=== PATIENT | female | born 1945 | race Caucasian/White ===

== ENCOUNTER → 2017-06-17 | Outpatient (CLI) | payer MEDICARE, OTHER ==
[~2017-06-17] MED LIST: ASPI-808 PO; BIOT10005 PO; CHOL10003 PO; CHOL10007 PO; CHRO1000 PO; CURCUMIN PO; CYAN1TAB26 PO; CYAN50003 PO; DOCU-143 PO; ESTR0.5T PO; FOLI0.8C PO; GING550C4 PO; GRAP50CA5 PO; GRAPE SEED COMPLEX PO; HYDR-3812 PO; KRIL500C PO; LACT1CAP74 PO; LEVO100T7 PO; LITH150C PO; LITH300T PO; LORA10TA76 PO; MILK175T PO; MUPI22OI2 NS; MV-M1TAB20 PO; NABU750T PO; OXYC-197 PO; PHEN15CA PO; PHEN37.53 PO; POLY119P5 PO; POTA99TA21 PO; RESV100C PO; SODI30SP2 NS; TEMA30CA PO; THYROID CARE PO; TRIA10.8; TURM500C7 PO; UBID1CAP58 PO; UBID200C16 PO; VITA150T PO; ZINC50TA4 PO; [UNRECOGNIZED DRUG - CODE] PO; [UNRECOGNIZED DRUG - OTHER] PO; [UNRECOGNIZED DRUG - OTHER] PO; milk thistle PO; vinpocetine PO
== END ==
LOC: CARD 10:14
PROVIDERS: ATTEND Internal Medicine Cardiovascular Disease
DX: I10 Essential (primary) hypertension (principal); E03.9 Hypothyroidism, unspecified; M54.5 Low back pain
CPT/HCPCS: 93306

== ENCOUNTER → 2017-07-01 | Outpatient (CLI) | payer MEDICARE, OTHER ==
[~2017-07-01] VITALS: Ht 154.9 cm; Wt 103.4 kg
[~2017-07-01] MED LIST changes: +CATHETER FLUSH 10 ML SYR IV PRN
[2017-07-01 09:31] VITALS: BP 164/87
[2017-07-01 09:47] VITALS: BP 177/62
== END ==
LOC: CARD 07:46
PROVIDERS: ATTEND Internal Medicine Cardiovascular Disease
DX: I10 Essential (primary) hypertension (principal); E03.9 Hypothyroidism, unspecified; M54.5 Low back pain
CPT/HCPCS: 78452; 93017

== ENCOUNTER → 2019-06-20 | Outpatient (CLI) | payer MEDICARE, OTHER ==
[~2019-06-20] MED LIST changes: +ACHD5005 PO; -CATHETER FLUSH 10 ML SYR IV PRN; -HYDR-3812 PO; -OXYC-197 PO; +OXYC1TAB87 PO
== END ==
LOC: CARD 08:57
PROVIDERS: ATTEND Internal Medicine Cardiovascular Disease
DX: I10 Essential (primary) hypertension (principal); M51.16 Intervertebral disc disorders with radiculopathy, lumbar region; G47.33 Obstructive sleep apnea (adult) (pediatric); E66.01 Morbid (severe) obesity due to excess calories
CPT/HCPCS: 93306

== ENCOUNTER 2021-12-23 16:31 | Inpatient (IN) | payer MEDICARE, OTHER ==
[~2021-12-23] VITALS: Ht 157 cm; Wt 107.9 kg
[~2021-12-23 16:31] MED LIST changes: -CATHETER FLUSH 10 ML SYR IV PRN; -IOHEXOL 350 MG/ML 100 ML (OMNIPAQUE 350) VIAL IV ONE; -NS 100 ML (IVPB) BAG IV ONE
[2021-12-23] MEDS ORDERED: NS IV 1000 ML 3,000 ML IV ONE (16:45)
[2021-12-23] MEDS ORDERED: PIPERACILLIN SODIUM/TAZOBACTAM 4.5 GM in NS (IVPB) 100 ML IV NR (17:15)
[2021-12-23 17:16] VITALS: BP 138/75
--- NOTE | 2021-12-23 17:40 | History & Physical ---
History of Present Illness History of Present Illness Reason for visit/HPI PT IS A 76 Y/O FEMALE WHO WAS ADMITTED TO THE HOSPITAL A DIRECT ADMISSION AFTER HAVING SEVERE ABDOMINAL PAIN WITH ASSOCIATED BROWN DISCHARGE AND BLEEDING FROM VAGINA AND BLADDER (PER PT REPORT). SHE HAD A CT SCAN AND LABS WHICH SHOWED SIGMOID DIVERTICULITIS WITH SUSPECTED FISTULA TO VAGINAL CUFF AND BLADDER AND A WBC COUNT OF 29. SHE ADMITS TO HAVING ABDOMINAL PAIN FOR THE PAST FEW WEEKS, WAS SEEN IN THE OFFICE ON THURSDAY OF LAST WEEK, THE CT SCAN WAS ORDERED AN OUTPATIENT, BUT THE PT HAD ESCALATION OF PAIN OVER THE WEEKEND AND STARTED TO HAVE THE BLEEDING AND DISCHARGE THIS WEEKEND WELL. Date of Admission Dec 23, 2021 at 16:58 Date Seen by a Provider: Dec 23, 2021 Time Seen by a Provider: 17:30 I consulted on this patient on 12/23/21 17:34 Attending Physician Bert Padilla MD Admitting Physician Admitting Physician: Bert Padilla MD Attending Physician: Bert Padilla MD Consult [facility] Allergies and Home Medications Allergies Coded Allergies: codeine (Verified Allergy, Unknown, FLU LIKE SYMPTOMS, 02/04/16) rosuvastatin (Verified Adverse Reaction, Mild, 12/23/21) myalgias Uncoded Allergies: depromedrol (Allergy, Severe, 12/23/21) collins syndrome, headache Patient Home Medication List Home Medication List Reviewed: Yes Aspirin (Aspirin) 325 Mg Tablet, 325 MG PO HS, (Reported) Entered as Reported by: PINA COVARRUBIAS on 02/04/16 1327 Last Action: Held Biotin (Biotin) 10,000 Mcg Capsule, 10,000 MCG PO DAILY, (Reported) Entered as Reported by: PINA COVARRUBIAS on 02/04/16 1430 Last Action: Held Cholecalciferol (Vitamin D3) (Vitamin D3) 1,000 Unit Tablet, 1,000 UNIT PO HS, (Reported) Entered as Reported by: PINA COVARRUBIAS on 02/04/16 1430 Last Action: Held Cholecalciferol (Vitamin D3) (Vitamin D3) 1,000 Unit Capsule, 1,000 UNIT PO DAILY, (Reported) Entered as Reported by: TAYLOR SHAH on 02/08/16 1008 Last Action: Held Chromium Picolinate (Chromium Picolinate) 1,000 Mcg Tablet, 1,000 MCG PO DAILY, (Reported) Entered as Reported by: PINA COVARRUBIAS on 02/04/16 143 Last Action: Held Cyanocobalamin (Vitamin B-12) (Vitamin B-12) 5,000 Mcg Tab.rapdis, 5,000 MCG PO DAILY, (Reported) Entered as Reported by: TAYLOR SHAH on 02/08/16 100 Last Action: Held Docusate Sodium (Colace) 100 Mg Capsule, 100 MG PO HS, (Reported) Entered as Reported by: PINA COVARRUBIAS on 02/04/161429 Last Action: Held Estradiol (Estradiol Tablet) 0.5 Mg Tablet, 0.5 MG PO HS, (Reported) Entered as Reported by: PINA COVARRUBIAS on 02/04/161326 Last Action: Held Folic Acid (Folic Acid) 0.8 Mg Capsule, 0.8 MG PO DAILY, (Reported) Entered as Reported by: PINA COVARRUBIAS on 02/04/161429 Last Action: Held Chetna Root (Chetna Root) 550 Mg Capsule, 550 MG PO DAILY, (Reported) Entered as Reported by: PINA COVARRUBIAS on 02/04/161429 Last Action: Held Grape Seed Extract (Grape Seed Extract) 50 Mg Capsule, 100 MG PO DAILY, (Reported) Entered as Reported by: TAYLOR SHAH on 02/08/16 100 Last Action: Held Krill Oil (Krill Oil) 500 Mg Capsule, 500 MG PO HS, (Reported) Entered as Reported by: PINA COVARRUBIAS on 02/04/161429 Last Action: Held Lactobacillus Combination No.4 (Probiotic) 1 Each Capsule, 1 CAP PO HS, (Reported) Entered as Reported by: PINA COVARRUBIAS on 02/04/161429 Last Action: Held Levothyroxine Sodium (Levothyroxine Sodium) 100 Mcg Tablet, 100 MCG PO DAILY Prescribed by: HAYES ROWE on 02/08/16 1458 Last Action: Held [place] Carbonate ([place] Carbonate ER) 300 Mg Tablet.er, 300 MG PO DAILY, (Reported) Entered as Reported by: PINA COVARRUBIAS on 02/04/16 1327 Last Action: Held [place] Carbonate ([place] Carbonate) 150 Mg Capsule, 150 MG PO HS PRN for AGITATION, (Reported) Entered as Reported by: PINA COVARRUBIAS on 02/04/16 1327 Last Action: Held Loratadine (Claritin) 10 Mg Tablet, 10 MG PO DAILY, (Reported) Entered as Reported by: PINA COVARRUBIAS on 02/04/16 121 Last Action: Held Milk Thistle (Milk Thistle) 175 Mg Tablet, 250 MG PO DAILY, (Reported) Entered as Reported by: TAYLOR SHAH on 02/08/16 100 Last Action: Held Multivit W-Mn/FA/Lycop/Lut/Ala (Multi-Betic Tablet) 1 Each Tablet, 1 TAB PO BID, (Reported) Entered as Reported by: PINA COVARRUBIAS on 02/04/16 143 Last Action: Held Nabumetone (Nabumetone) 750 Mg Tablet, 750 MG PO BID, (Reported) Entered as Reported by: PINA COVARRUBIAS on 02/04/16 121 Last Action: Held Oxycodone HCl/Acetaminophen (Percocet 5-325 mg Tablet) 1 Each Tablet, 1 EACH PO Q4H PRN for PAIN Prescribed by: HAYES ROWE on 02/08/16 1455 Last Action: Held Phentermine HCl (Phentermine HCl) 37.5 Mg Tablet, 18.75 MG PO Q48H, (Reported) Entered as Reported by: TAYLOR SHAH on 02/08/16 100 Last Action: Held Polyethylene Glycol 3350 (Miralax) 119 Gm Powder, 17 GM PO DAILY, (Reported) Entered as Reported by: PINA COVARRUBIAS on 02/04/16 143 Last Action: Held Potassium Gluconate (Potassium) 99 Mg Tablet, 99 MG PO HS, (Reported) Entered as Reported by: PINA COVARRUBIAS on 02/04/16 143 Last Action: Held Resveratrol (Resveratrol) 100 Mg Capsule, 100 MG PO HS, (Reported) Entered as Reported by: PINA COVARRUBIAS on 02/04/16 143 Last Action: Held Sodium Chloride (Saline Nasal Soldier) 30 Ml Soldier, 1 SPRAY NS HS, (Reported) Entered as Reported by: TAYLOR SHAH on 02/08/16 1008 Last Action: Held Temazepam (Temazepam) 30 Mg Capsule, 30 MG PO HS, (Reported) Entered as Reported by: PINA COVARRUBIAS on 02/04/16 1327 Last Action: Held Triamcinolone Acetonide (Nasacort) 10.8 Ml Soldier, 1 SPRAY NA HS, (Reported) Entered as Reported by: PINA COVARRUBIAS on 02/04/16 1212 Last Action: Held Turmeric Root Extract (Turmeric) 500 Mg Capsule, 500 MG PO DAILY, (Reported) Entered as Reported by: PINA COVARRUBIAS on 02/04/16 143 Last Action: Held Ubidecarenone (Co Q-10) 200 Mg Capsule, 200 MG PO HS, (Reported) Entered as Reported by: TAYLOR SHAH on 02/08/16 100 Last Action: Held Vitamin B Complex & Vit C No.4 (Super B Complex) 150 Mg Tablet, 150 MG PO DAILY, (Reported) Entered as Reported by: PINA COVARRUBIAS on 02/04/161429 Last Action: Held Zinc Gluconate (Zinc) 50 Mg Tablet, 50 MG PO HS, (Reported) Entered as Reported by: PINA COVARRUBIAS on 02/04/161429 Last Action: Held [Curcumin] , 1 CAP PO DAILY, (Reported) Entered as Reported by: TAYLOR SHAH on 02/08/16 100 Last Action: Held [natural eggshell ] , 500 MG PO DAILY, (Reported) Entered as Reported by: PINA COVARRUBIAS on 02/04/161429 Last Action: Held [rejuvicare hair] , 1 TAB PO DAILY, (Reported) Entered as Reported by: PINA COVARRUBIAS on 02/04/161429 Last Action: Held [vinpocetine] , 10 MG PO DAILY, (Reported) Entered as Reported by: PINA COVARRUBIAS on 02/04/161429 Last Action: Held Past Wrjxomp-Lqffga-Jjikte Hx Patient Social History Marrital Status: Number of Children: 1 Number of living children: 1 Living Status: lives in home with spouse 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[employer]) Tobacco Use?: No Smoking Status: Never a Smoker Smokeless Tobacco Frequency: Never a User Use of E-Cig and/or Vaping dev: No Use of E-Cig and/or Vaping Marshal: Never a User Substance use?: No Alcohol Use?: No Pt feels they are or have been: No Immunizations Up To Date Date of Influenza Vaccine: Apr 18, 2021 Tetanus Booster (TDap): Unknown Hepatitis A: No Hepatitis B: No PED Vaccines UTD: No Date of Pneumonia Vaccine: May 12, 2016 Seasonal Allergies Seasonal Allergies: Yes Current Status status: No status: No Advance Directives: No Communicates: Verbally Primary Language: Polish Preferred Spoken Language: Polish Is interpretation needed?: No Sensory deficits: Vision impairment Implanted or Applied Medical D: None Past Medical History Surgeries: Section, Hysterectomy (1989), Thyroidectomy (2015) Pneumonia Currently Using CPAP: Yes Currently Using BIPAP: No High Cholesterol, Hypertension, Palpitations 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: Hysterectomy Sexually Transmitted Disease: No HIV/AIDS: No Kidney Infection, UTI-Chronic Chronic Constipation Degenerate Disk Disease, Arthritis, Scoliosis, Chronic Back Pain Hypothyroidsim (post surgical hypothyroidism), Diabetes, Non-Insulin dep Cataract Loss of Vision: Denies Hearing Impairment: Hard of Hearing Bipolar Adverse Reaction/Blood Tranf: No Family Medical History Reviewed and Corrections made Alcoholism 19 FATHER Alzheimer's disease 19 MOTHER Arthritis 19 FATHER 19 MOTHER G8 BROTHER Cardiovascular disease 19 MOTHER Completed stroke 19 MOTHER FHx: bipolar disorder 19 FATHER G8 BROTHER Hypertension 19 FATHER Myocardial infarction 19 FATHER Psychosocial problem 19 FATHER 19 MOTHER G8 BROTHER Thyroid disease 19 MOTHER Heart Disease, Hypertension, Stroke, Other Conditions/Hx (father had a bleeding disorder, mother osteoporosis, depression, arthritis) Review of Systems Constitutional: No chills, No diaphoresis, No fever; malaise, weakness, other (DECREASED APPETITE) EENTM: No hoarseness, No throat pain Respiratory: No cough, No dyspnea on exertion, No short of breath Cardiovascular: No chest pain, No edema, No palpitations Gastrointestinal: abdominal pain (LLQ); No constipation, No diarrhea; loss of appetite; No nausea, No vomiting Genitourinary: other (BLOOD AND BROWN DISCHARGE FROM VAGINAL REGION AND BLADDER) Musculoskeletal: back pain (CHRONIC); No muscle stiffness, No muscle weakness Skin: no symptoms reported Psychiatric/Neurological: Anxiety, Depressed; Denies Weakness All Other Systems Reviewed Negative Unless Noted: Yes Physical Exam Vital Signs Vital Signs - First Documented 12/23/21 12/23/21 12/23/21 17:16 17:29 21:55 Temp 36.2 Pulse 78 Resp 20 B/P (MAP) 138/75 (96) Pulse Ox 92 O2 Delivery Room Air O2 Flow Rate 2.00 Capillary Refill : Less Than 3 Seconds Height, Weight, BMI Height: 5'1.00" Weight: 228lbs. 0.0oz. [id number]; 40.56 BMI Method: General Appearance: No Apparent Distress, WD/WN HEENT: PERRL/EOMI, Pharynx Normal Neck: Full Range of Motion, Normal Inspection, Non Tender, Supple Respiratory: Chest Non Tender, Lungs Clear, Normal Breath Sounds, No Accessory Muscle Use, No Respiratory Distress Cardiovascular: Regular Rate, Rhythm, No Edema, Normal Peripheral Pulses Gastrointestinal: Other (DECREASED BOWEL SOUNDS, TTP LLQ, SUPRAPUBIC REGION) Genital/Rectal: Other (BROWNISH DISCHARGE FROM VAGINAL REGION WITH BLOOD ON GLOVE, NO OPEN WOUND ABLE TO BE APPRECIATED ON LIMITED EXAM) Extremity: Normal Capillary Refill, Normal Range of Motion, Non Tender, No Calf Tenderness Neurologic/Psychiatric: Alert, Oriented x3, No Motor/Sensory Deficits, Normal Mood/Affect Skin: Normal Color, Warm/Dry Lymphatic: No Adenopathy Assessment/Plan Assessment and Plan Sepsis Leukocytosis Sigmoid diverticulitis 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 - started on Sepsis replacement protocol for fluids - IV zosyn initiated as well - Blood cultures obtained. - Consult to Dr. Rai has been called and he will see patient today. Cholelethiasis - not current issue - will address at a later time or when/if symptoms arise. Hypertension - holding home meds for now, will treat with IV meds if needed. Diabetes Mellitus - holding home meds for now, will treat with insulin if needed. - ICU protocol for diabetes/fsbs checks/insulin Bipolar Mood Disorder - - holding home meds for now Post-Procedural Hypothyroidism - - holding home meds for now, will treat with IV meds if needed. 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
--- NOTE | 2021-12-23 17:54 | Diagnostic Imaging Report ---
INDICATION: Sepsis. EXAMINATION: Chest from 12/23/2021. FINDINGS: The cardiomediastinal silhouette is unremarkable. The pulmonary vasculature is within normal limits. The lungs and pleural spaces are clear. IMPRESSION: No evidence of an acute cardiopulmonary process. Not mentioned in the body of the report, linear densities in the neck are nonspecific, perhaps postsurgical, correlate clinically. Dictated by: Dictated on workstation # [id number]
[2021-12-23] MEDS ORDERED: CATHETER FLUSH 10 ML SYR IVP PRN (18:00)
[2021-12-23] MEDS ORDERED: PANTOPRAZOLE 40 MG (PROTONIX) VIAL IV NR (18:00)
--- NOTE | 2021-12-23 18:30 | Tele-ICU Consult ---
History of Present Illness History of Present Illness Date Seen by Provider: Dec 23, 2021 Time Seen by Provider: 18:30 Date of Admission Tele-ICU Physician , consultation) Available chart/ vitals / labs / Images reviewed no H&P yet Patient's information available about PMH, Shx, Fhx allergy reviewed in EMR. ROS as per chart and RN report Now in ICU, hemodynamically stable Video assessment done using teleICU camera, rest of exam as per RN Discussed with RN. Consultants: Hospital course: 12/23 76 yr female DX: Sepsis, Fistula Sent from MD office A/P - CT 12/23 - Sigmoid diverticulitis with a suspicion for fistulization to the vaginal cuff as well as urinary bladder. - ABX started as per PCP Lines : (Central Line Necessity Reviewed) Mejia: OG: Nutrition: Analgesia: Anxiety/ delirium VTE Prophylaxis: Stress Ulcer Prophylaxis: Glycemic Control: Plans in collaboration with bedside consultants and IM MDs. Discussed with RN to reach out if any questions or concerns A total of 20 minutes of critical care time was devoted to this patient today, required to treat and/or prevent further deterioration of critical care condition ( as above ) . Allergies and Home Medications Allergies Coded Allergies: codeine (Verified Allergy, Unknown, FLU LIKE SYMPTOMS, 02/04/16) rosuvastatin (Verified Adverse Reaction, Mild, 12/23/21) myalgias Uncoded Allergies: depromedrol (Allergy, Severe, 12/23/21) collins syndrome, headache Home Medications Aspirin 325 Mg Tablet, 325 MG PO HS, (Reported) Biotin 10,000 Mcg Capsule, 10,000 MCG PO DAILY, (Reported) Cholecalciferol (Vitamin D3) 1,000 Unit Tablet, 1,000 UNIT PO HS, (Reported) Cholecalciferol (Vitamin D3) 1,000 Unit Capsule, 1,000 UNIT PO DAILY, (Reported) Chromium Picolinate 1,000 Mcg Tablet, 1,000 MCG PO DAILY, (Reported) Cyanocobalamin (Vitamin B-12) 5,000 Mcg Tab.rapdis, 5,000 MCG PO DAILY, (Reported) Docusate Sodium 100 Mg Capsule, 100 MG PO HS, (Reported) Estradiol 0.5 Mg Tablet, 0.5 MG PO HS, (Reported) Folic Acid 0.8 Mg Capsule, 0.8 MG PO DAILY, (Reported) Chetna Root 550 Mg Capsule, 550 MG PO DAILY, (Reported) Grape Seed Extract 50 Mg Capsule, 100 MG PO DAILY, (Reported) Krill Oil 500 Mg Capsule, 500 MG PO HS, (Reported) Lactobacillus Combination No.4 1 Each Capsule, 1 CAP PO HS, (Reported) Levothyroxine Sodium 100 Mcg Tablet, 100 MCG PO DAILY Prescribed by: HAYES ROWE on 02/08/16 1458 Axis Carbonate 300 Mg Tablet.er, 300 MG PO DAILY, (Reported) Axis Carbonate 150 Mg Capsule, 150 MG PO HS PRN for AGITATION, (Reported) Loratadine 10 Mg Tablet, 10 MG PO DAILY, (Reported) Milk Thistle 175 Mg Tablet, 250 MG PO DAILY, (Reported) Multivit W-Mn/FA/Lycop/Lut/Ala 1 Each Tablet, 1 TAB PO BID, (Reported) Nabumetone 750 Mg Tablet, 750 MG PO BID, (Reported) Oxycodone HCl/Acetaminophen 1 Each Tablet, 1 EACH PO Q4H PRN for PAIN Prescribed by: HAYES ROWE on 02/08/16 1455 Phentermine HCl 37.5 Mg Tablet, 18.75 MG PO Q48H, (Reported) TAKES 1/2 (37.5MG) TABLET Polyethylene Glycol 3350 119 Gm Powder, 17 GM PO DAILY, (Reported) Potassium Gluconate 99 Mg Tablet, 99 MG PO HS, (Reported) Resveratrol 100 Mg Capsule, 100 MG PO HS, (Reported) Sodium Chloride 30 Ml Williams, 1 SPRAY NS HS, (Reported) Temazepam 30 Mg Capsule, 30 MG PO HS, (Reported) Triamcinolone Acetonide 10.8 Ml Williams, 1 SPRAY NA HS, (Reported) Turmeric Root Extract 500 Mg Capsule, 500 MG PO DAILY, (Reported) Ubidecarenone 200 Mg Capsule, 200 MG PO HS, (Reported) Vitamin B Complex & Vit C No.4 150 Mg Tablet, 150 MG PO DAILY, (Reported) Zinc Gluconate 50 Mg Tablet, 50 MG PO HS, (Reported) [Curcumin] , 1 CAP PO DAILY, (Reported) [natural eggshell ] , 500 MG PO DAILY, (Reported) [rejuvicare hair] , 1 TAB PO DAILY, (Reported) [vinpocetine] , 10 MG PO DAILY, (Reported) Past Medical/Social/Family Hx Patient Social History Marrital Status: Number of Children: 1 Number of living children: 1 Living Status: lives in home with spouse 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[employer]) Tobacco Use?: No Smoking Status: Never a Smoker Smokeless Tobacco Frequency: Never a User Use of E-Cig and/or Vaping dev: No E-Cig and/or Vaping Freq: Never a User Substance use?: No Alcohol Use?: No Pt stated abuse/neglect: No Immunizations Up To Date Influenza Vaccine Up-to-Date: Yes; Up-to-Date Tetanus Booster (TDap): Unknown Hepatitis A: No Hepatitis B: No TB Skin Test: None Date of Pneumonia Vaccine: May 12, 2016 Current Status status: No status: No Advance Directives: No Communicates: Verbally Primary Language: Stateless Preferred Spoken Language: Stateless Is interpretation needed?: No Sensory deficits: Vision impairment Implanted or Applied Medical D: None Review of Systems Constitutional: see HPI Focused Exam Height, Weight, BMI Height: 5'1.00" Weight: 228lbs. 0.0oz. 103.979759jq; 40.56 BMI Method: Exam Exam Patient acknowledged, consented, and participated in this virtual visit which was conducted using real time audio/video Vital Signs Date Time Temp Pulse Resp B/P (MAP) Pulse Ox O2 Delivery O2 Flow Rate FiO2 12/23/21 17:29 36.2 78 20 138/75 92 Room Air 12/23/21 17:17 78 12/23/21 17:16 36.2 78 20 138/75 (96) Room Air Height & Weight Height: 5'1.00" Weight: 228lbs. 0.0oz. 103.933428hw; 40.56 BMI Method: General Appearance: No Apparent Distress Capillary Refill: Less Than 3 Seconds Assessment/Plan Assessment/Plan ` HAILEE CARBAJAL MD Dec 23, 2021 18:30
[2021-12-23 19:02] LABS: BASOPHILS # (AUTO) 0.1 10^3/uL (0.0-0.1); BASOPHILS % (AUTO) 0 % (0-10); EOSINOPHILS # (AUTO) 0.4 10^3/uL (0.0-0.3); EOSINOPHILS % (AUTO) 1 % (0-10); HEMATOCRIT 32 % (35-52); HEMOGLOBIN 10.5 g/dL (11.5-16.0); LYMPHOCYTES % (AUTO) 7 % (12-44); MEAN CORPUSCULAR HEMOGLOBIN 32 pg (25-34); MEAN CORPUSCULAR HGB CONC 33 g/dL (32-36); MEAN CORPUSCULAR VOLUME 98 fL (80-99); MONOCYTES % (AUTO) 7 % (0-12); NEUTROPHILS # (AUTO) 22.9 10^3/uL (1.8-7.8); NEUTROPHILS % (AUTO) 83 % (42-75); PLATELET COUNT 221 10^3/uL (130-400); WHITE BLOOD COUNT 27.8 10^3/uL (4.3-11.0)
[2021-12-23 19:09] LABS: ALBUMIN 3.3 GM/DL (3.2-4.5); POTASSIUM 3.8 MMOL/L (3.6-5.0)
[2021-12-23 19:10] LABS: CALCIUM 9.1 MG/DL (8.5-10.1)
[2021-12-23 19:11] LABS: TOTAL PROTEIN 6.4 GM/DL (6.4-8.2)
[2021-12-23 19:13] LABS: BILIRUBIN,TOTAL 0.4 MG/DL (0.1-1.0)
[2021-12-23 19:15] LABS: BAND NEUTROPHILS 4 %; CREATININE SERUM 0.8 MG/DL (0.60-1.30); LYMPHOCYTES % (MANUAL) 5 %; NEUTROPHILS % (MANUAL) 86 %
[2021-12-23 19:16] LABS: ANISOCYTOSIS SLIGHT; BASOPHILS % (MANUAL) 0 %; EOSINOPHILS % (MANUAL) 1 %; METAMYELOCYTES % 1 %; MONOCYTES % (MANUAL) 3 %
[2021-12-23] MEDS: fentaNYL INJ 100 MCG/2 ML AMP IVP PRN ×3 (19:41→23:20)
[2021-12-23] MEDS: NS IV 1000 ML 1,000 ML IV SCH ×2 (20:00→23:21)
--- NOTE | 2021-12-23 20:15 | Consultation - Surgery ---
History of Present Illness History of Present Illness Patient Consulted On(lucila/time) 12/23/21 20:10 Date Seen by Provider: Dec 23, 2021 Time Seen by Provider: 19:35 History of Present Illness Consult requested by Dr. PADILLA for sigmoid diverticulitis with possible fistulization to the bladder and vagina. Patient is a 76-year-old female who states she began having problems on with lower abdominal pain. She started have problems with urination as well. She went to her doctor office on Thursday which she states she started some antibiotics. She is try to get a CT scan that day but was unable to get it. She has lower 10 out of 10 pain in the abdomen which she states is more in the vagina and bladder area. She states that she has been leaking large amounts of blood clots and fluid. She feels they are from the vagina she states that she has no control over that as well. She states that she is not having any problems with her bowel movements. She had a CT scan that I reviewed demonstrating sigmoid diverticulitis with what appears to be possible fistula to the vaginal cuff/bladder. Patient with elevated white blood cell count. She states that she has had some sweats. She thinks she had a fever but did not check. Not having any nausea vomiting shortness of breath or chest pain at this time. She states that her last colonoscopy was likely greater than 10 years ago. Allergies and Home Medications Allergies Coded Allergies: codeine (Verified Allergy, Unknown, FLU LIKE SYMPTOMS, 02/04/16) rosuvastatin (Verified Adverse Reaction, Mild, 12/23/21) myalgias Uncoded Allergies: depromedrol (Allergy, Severe, 12/23/21) collins syndrome, headache Patient Home Medication List Home Medication List Reviewed: Yes Aspirin (Aspirin) 325 Mg Tablet, 325 MG PO HS, (Reported) Entered as Reported by: PINA COVARRUBIAS on 02/04/16 1327 Last Action: Held Biotin (Biotin) 10,000 Mcg Capsule, 10,000 MCG PO DAILY, (Reported) Entered as Reported by: PINA COVARRUBIAS on 02/04/16 1430 Last Action: Held Cholecalciferol (Vitamin D3) (Vitamin D3) 1,000 Unit Tablet, 1,000 UNIT PO HS, (Reported) Entered as Reported by: PINA COVARRUBIAS on 7/18/16 1430 Last Action: Held Cholecalciferol (Vitamin D3) (Vitamin D3) 1,000 Unit Capsule, 1,000 UNIT PO DAILY, (Reported) Entered as Reported by: TAYLOR SHAH on 02/08/161007 Last Action: Held Chromium Picolinate (Chromium Picolinate) 1,000 Mcg Tablet, 1,000 MCG PO DAILY, (Reported) Entered as Reported by: PINA COVARRUBIAS on 02/04/161429 Last Action: Held Cyanocobalamin (Vitamin B-12) (Vitamin B-12) 5,000 Mcg Tab.rapdis, 5,000 MCG PO DAILY, (Reported) Entered as Reported by: TAYLOR SHAH on 02/08/161007 Last Action: Held Docusate Sodium (Colace) 100 Mg Capsule, 100 MG PO HS, (Reported) Entered as Reported by: PINA COVARRUBIAS on 02/04/161429 Last Action: Held Estradiol (Estradiol Tablet) 0.5 Mg Tablet, 0.5 MG PO HS, (Reported) Entered as Reported by: PINA COVARRUBIAS on 02/04/16 1327 Last Action: Held Folic Acid (Folic Acid) 0.8 Mg Capsule, 0.8 MG PO DAILY, (Reported) Entered as Reported by: PINA COVARRUBIAS on 02/04/161429 Last Action: Held Chetna Root (Chetna Root) 550 Mg Capsule, 550 MG PO DAILY, (Reported) Entered as Reported by: PINA COVARRUBIAS on 02/04/161429 Last Action: Held Grape Seed Extract (Grape Seed Extract) 50 Mg Capsule, 100 MG PO DAILY, (Reported) Entered as Reported by: TAYLOR SHAH on 02/08/161007 Last Action: Held Krill Oil (Krill Oil) 500 Mg Capsule, 500 MG PO HS, (Reported) Entered as Reported by: PINA COVARRUBIAS on 02/04/161429 Last Action: Held Lactobacillus Combination No.4 (Probiotic) 1 Each Capsule, 1 CAP PO HS, (Reported) Entered as Reported by: PINA COVARRUBIAS on 02/04/161429 Last Action: Held Levothyroxine Sodium (Levothyroxine Sodium) 100 Mcg Tablet, 100 MCG PO DAILY Prescribed by: HAYES ROWE on 02/08/16 1458 Last Action: Held [place] Carbonate ([place] Carbonate ER) 300 Mg Tablet.er, 300 MG PO DAILY, (Reported) Entered as Reported by: PINA COVARRUBIAS on 02/04/16 132 Last Action: Held [place] Carbonate ([place] Carbonate) 150 Mg Capsule, 150 MG PO HS PRN for AGITATION, (Reported) Entered as Reported by: PINA COVARRUBIAS on 02/04/16 132 Last Action: Held Loratadine (Claritin) 10 Mg Tablet, 10 MG PO DAILY, (Reported) Entered as Reported by: PINA COVARRUBIAS on 02/04/16 121 Last Action: Held Milk Thistle (Milk Thistle) 175 Mg Tablet, 250 MG PO DAILY, (Reported) Entered as Reported by: TAYLOR SHAH on 02/08/16 100 Last Action: Held Multivit W-Mn/FA/Lycop/Lut/Ala (Multi-Betic Tablet) 1 Each Tablet, 1 TAB PO BID, (Reported) Entered as Reported by: PINA COVARRUBIAS on 02/04/16 143 Last Action: Held Nabumetone (Nabumetone) 750 Mg Tablet, 750 MG PO BID, (Reported) Entered as Reported by: PINA COVARRUBIAS on 02/04/16 121 Last Action: Held Oxycodone HCl/Acetaminophen (Percocet 5-325 mg Tablet) 1 Each Tablet, 1 EACH PO Q4H PRN for PAIN Prescribed by: HAYES ROWE on 02/08/16 1455 Last Action: Held Phentermine HCl (Phentermine HCl) 37.5 Mg Tablet, 18.75 MG PO Q48H, (Reported) Entered as Reported by: TAYLOR SHAH on 02/08/16 100 Last Action: Held Polyethylene Glycol 3350 (Miralax) 119 Gm Powder, 17 GM PO DAILY, (Reported) Entered as Reported by: PINA COVARRUBIAS on 02/04/16 143 Last Action: Held Potassium Gluconate (Potassium) 99 Mg Tablet, 99 MG PO HS, (Reported) Entered as Reported by: PINA COVARRUBIAS on 02/04/16 143 Last Action: Held Resveratrol (Resveratrol) 100 Mg Capsule, 100 MG PO HS, (Reported) Entered as Reported by: PINA COVARRUBIAS on 02/04/161429 Last Action: Held Sodium Chloride (Saline Nasal [place]) 30 Ml [place], 1 SPRAY NS HS, (Reported) Entered as Reported by: TAYLOR SHAH on 02/08/16 100 Last Action: Held Temazepam (Temazepam) 30 Mg Capsule, 30 MG PO HS, (Reported) Entered as Reported by: PINA COVARRUBIAS on 02/04/16 1327 Last Action: Held Triamcinolone Acetonide (Nasacort) 10.8 Ml [place], 1 SPRAY NA HS, (Reported) Entered as Reported by: PINA COVARRUBIAS on 02/04/16 1212 Last Action: Held Turmeric Root Extract (Turmeric) 500 Mg Capsule, 500 MG PO DAILY, (Reported) Entered as Reported by: PINA COVARRUBIAS on 02/04/161429 Last Action: Held Ubidecarenone (Co Q-10) 200 Mg Capsule, 200 MG PO HS, (Reported) Entered as Reported by: TAYLOR SHAH on 02/08/16 100 Last Action: Held Vitamin B Complex & Vit C No.4 (Super B Complex) 150 Mg Tablet, 150 MG PO DAILY, (Reported) Entered as Reported by: PINA COVARRUBIAS on 02/04/161429 Last Action: Held Zinc Gluconate (Zinc) 50 Mg Tablet, 50 MG PO HS, (Reported) Entered as Reported by: PINA COVARRUBIAS on 02/04/161429 Last Action: Held [Curcumin] , 1 CAP PO DAILY, (Reported) Entered as Reported by: TAYLOR SHAH on 02/08/16 100 Last Action: Held [natural eggshell ] , 500 MG PO DAILY, (Reported) Entered as Reported by: PINA COVARRUBIAS on 02/04/161429 Last Action: Held [rejuvicare hair] , 1 TAB PO DAILY, (Reported) Entered as Reported by: PINA COVARRUBIAS on 02/04/161429 Last Action: Held [vinpocetine] , 10 MG PO DAILY, (Reported) Entered as Reported by: PINA COVARRUBIAS on 02/04/161429 Last Action: Held Past Pipieaf-Owxtjr-Xybofm Hx Patient Social History Smoking Status: Never a Smoker Recent Hopitalizations: No Alcohol Use?: No Immunizations Up To Date Tetanus Booster (TDap): Unknown PED Vaccines UTD: No Date of Pneumonia Vaccine: May 12, 2016 Date of Influenza Vaccine: Apr 18, 2021 Seasonal Allergies Seasonal Allergies: Yes Surgeries History of Surgeries: Yes Surgeries: Section, Hysterectomy (1989), Thyroidectomy (2015) Respiratory Respiratory Disorders: Pneumonia Cardiovascular Cardiac Disorders: High Cholesterol, Hypertension, Palpitations Reproductive System Hx Reproductive Disorders: Yes (FIBROID TUMORS) Sexually Transmitted Disease: No HIV/AIDS: No Female Reproductive Disorders: Endometriosis 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 Genitourinary Genitourinary Disorders: Kidney Infection, UTI-Chronic Gastrointestinal Gastrointestinal Disorders: Chronic Constipation Musculoskeletal Musculoskeletal Disorders: Degenerate Disk Disease, Arthritis, Scoliosis, Chronic Back Pain Endocrine Endocrine Disorders: Hypothyroidsim (post surgical hypothyroidism), Diabetes, Non-Insulin dep HEENT HEENT Disorders: Cataract Loss of Vision: Denies Hearing Impairment: Hard of Hearing Psychosocial Behavioral Health Disorders: Bipolar Blood Transfusions Adverse Reaction to a Blood Tr: No Reviewed Nursing Assessment Reviewed/Agree w Nursing PMH: Yes Family Medical History Significant Family History: Heart Disease, Hypertension, Stroke, Other Conditions/Hx (father had a bleeding disorder, mother osteoporosis, depression, arthritis) Family Medial History: Alcoholism 19 FATHER Alzheimer's disease 19 MOTHER Arthritis 19 FATHER 19 MOTHER G8 BROTHER Cardiovascular disease 19 MOTHER Completed stroke 19 MOTHER FHx: bipolar disorder 19 FATHER G8 BROTHER Hypertension 19 FATHER Myocardial infarction 19 FATHER Psychosocial problem 19 FATHER 19 MOTHER G8 BROTHER Thyroid disease 19 MOTHER Review of Systems-General Constitutional: diaphoresis, fever EENTM: No blurred vision, No double vision Respiratory: No cough, No dyspnea on exertion Cardiovascular: No chest pain, No palpitations Gastrointestinal: abdominal pain (Lower); No nausea, No vomiting Genitourinary: No decreased output; discharge Musculoskeletal: No gout, No joint pain Skin: No change in color, No change in hair/nails Psychiatric/Neurological: Denies Anxiety, Denies Depressed, Denies Emotional Problems All Other Systems Reviewed Negative Unless Noted: Yes (Negative excepted noted.) Physical Exam-General Problems Physical Exam Vital Signs Vital Signs - First Documented 12/23/21 12/23/21 17:16 17:29 Temp 36.2 Pulse 78 Resp 20 B/P (MAP) 138/75 (96) Pulse Ox 92 O2 Delivery Room Air Capillary Refill : Less Than 3 Seconds General Appearance: no apparent distress, obese HEENT: PERRL/EOMI, normal ENT inspection Neck: non-tender, supple Respiratory: chest non-tender, no respiratory distress, no accessory muscle use Cardiovascular: regular rate, rhythm, no JVD Gastrointestinal: soft, other (Tenderness lower abdomen more midline) Genital/Rectal: other (Female nurse at bedside no appearance of any drainage from the vagina on exam. Mejia was placed a small blood clot came from the catheterization however no other blood clots removed.) Back: normal inspection, no CVA tenderness Extremities: non-tender, normal inspection Neurologic/Psychiatric: alert, normal mood/affect, oriented x 3 Skin: normal color, warm/dry Lymphatic: no adenopathy Data Review Labs Laboratory Tests 12/23/21 18:40: White Blood Count 27.8H, Red Blood Count 3.28L, Hemoglobin 10.5#L, Hematocrit 32L, Mean Corpuscular Volume 98, Mean Corpuscular Hemoglobin 32, Mean Corpuscular Hemoglobin Concent 33, Red Cell Distribution Width 16.5H, Platelet Count 221, Mean Platelet Volume 11.0, Immature Granulocyte % (Auto) 1, Neutrophils (%) (Auto) 83H, Lymphocytes (%) (Auto) 7L, Monocytes (%) (Auto) 7, Eosinophils (%) (Auto) 1, Basophils (%) (Auto) 0, Neutrophils # (Auto) 22.9H, Lymphocytes # (Auto) 2.0, Monocytes # (Auto) 2.0H, Eosinophils # (Auto) 0.4H, Basophils # (Auto) 0.1, Immature Granulocyte # (Auto) 0.3H, Neutrophils % (Manual) 86, Lymphocytes % (Manual) 5, Monocytes % (Manual) 3, Eosinophils % (Manual) 1, Basophils % (Manual) 0, Metamyelocytes % 1, Band Neutrophils 4, Anisocytosis SLIGHT, Sodium Level 136, Potassium Level 3.8, Chloride Level 104, Carbon Dioxide Level 20L, Anion Gap 12, Blood Urea Nitrogen 24H, Creatinine 0.80, Estimat Glomerular Filtration Rate 77, BUN/Creatinine Ratio 30, Glucose Level 127H, Lactic Acid Level 1.10, Calcium Level 9.1, Corrected Calcium 9.7, Total Bilirubin 0.4, Aspartate Amino Transf (AST/SGOT) 16, Alanine Aminotransferase (ALT/SGPT) 16, Alkaline Phosphatase 76, Total Protein 6.4, Albumin 3.3 Assessment/Plan Assessment/Plan Assessment/Plan Lower abdominal pain Sigmoid diverticulitis with possible fistulization to the bladder cuff/bladder Leukocytosis Sepsis secondary to above Cholelithiasis by CT scan not acute issue Possible hematuria or vaginal bleeding Patient is 76-year-old female. We we will give her IV fluids, IV antibiotics. We will keep n.p.o. Mejia placed for accurate I's and O's and also to monitor to check for drainage. If not able to resolve conservatively would need to divert the colon so it does not continue to have things passed through this area of the fistula. Patient understands plan. Clinical Quality Measures DVT/VTE Risk/Contraindication: Contraindications-Pharm: Other *list below* Other: PT HAVING VAGINAL AND BLADDER BLEEDING FROM FISTULA ASHLEY RAMSEY DO Dec 23, 2021 20:15
[2021-12-23] MEDS: PIPERACILLIN SODIUM/TAZOBACTAM 4.5 GM in NS (IVPB) 100 ML IV SCH (23:21)
[2021-12-23] MEDS: inSUlin ASPART (NovoLOG) 1 UNIT/0.01 ML (CHARGE PER UNIT) SQ SCH (23:42)
[2021-12-24] VITALS (7 sets, daily range): BP systolic 140–173; BP diastolic 56–75
[2021-12-24] MEDS: fentaNYL INJ 100 MCG/2 ML AMP IVP PRN ×13 (01:00→22:45)
[2021-12-24] MEDS: NS IV 1000 ML 1,000 ML IV SCH ×6 (02:54→21:36)
[2021-12-24 04:31] LABS: BASOPHILS # (AUTO) 0.1 10^3/uL (0.0-0.1); BASOPHILS % (AUTO) 0 % (0-10); EOSINOPHILS # (AUTO) 0.3 10^3/uL (0.0-0.3); EOSINOPHILS % (AUTO) 2 % (0-10); HEMATOCRIT 36 % (35-52); HEMOGLOBIN 11.8 g/dL (11.5-16.0); LYMPHOCYTES # (AUTO) 1.4 10^3/uL (1.0-4.0); LYMPHOCYTES % (AUTO) 7 % (12-44); MEAN CORPUSCULAR HEMOGLOBIN 32 pg (25-34); MEAN CORPUSCULAR HGB CONC 33 g/dL (32-36); MEAN CORPUSCULAR VOLUME 97 fL (80-99); MONOCYTES # (AUTO) 1.3 10^3/uL (0.0-1.0); MONOCYTES % (AUTO) 6 % (0-12); NEUTROPHILS # (AUTO) 17.2 10^3/uL (1.8-7.8); NEUTROPHILS % (AUTO) 84 % (42-75); PLATELET COUNT 183 10^3/uL (130-400); WHITE BLOOD COUNT 20.5 10^3/uL (4.3-11.0)
[2021-12-24 04:42] LABS: POTASSIUM 4.1 MMOL/L (3.6-5.0)
[2021-12-24 04:43] LABS: CALCIUM 8.2 MG/DL (8.5-10.1)
[2021-12-24 04:44] LABS: TOTAL PROTEIN 5.8 GM/DL (6.4-8.2)
[2021-12-24 04:46] LABS: BILIRUBIN,TOTAL 0.6 MG/DL (0.1-1.0)
[2021-12-24] MEDS: inSUlin ASPART (NovoLOG) 1 UNIT/0.01 ML (CHARGE PER UNIT) SQ SCH ×3 (04:46→18:00)
[2021-12-24 04:47] LABS: PHOSPHORUS 2.7 MG/DL (2.3-4.7)
[2021-12-24 04:48] LABS: CREATININE SERUM 0.69 MG/DL (0.60-1.30)
[2021-12-24 04:51] LABS: MAGNESIUM 1.8 MG/DL (1.6-2.4)
[2021-12-24] MEDS: KCL 20 MEQ TAB (K-DUR) PO SCH (04:51)
[2021-12-24] MEDS: POTASSIUM CL 10MEQ/50ML IVPB 50 ML IV SCH (04:51)
[2021-12-24] MEDS: MAGNESIUM 1 GM/100 ML IVPB 100 ML IV SCH (06:13)
[2021-12-24] MEDS: PIPERACILLIN SODIUM/TAZOBACTAM 4.5 GM in NS (IVPB) 100 ML IV SCH ×3 (08:00→22:46)
[2021-12-24] MEDS: PANTOPRAZOLE 40 MG (PROTONIX) VIAL IV SCH (08:00)
--- NOTE | 2021-12-24 08:08 | Progress Note ---
Subjective Subjective Date Seen by Provider: Dec 24, 2021 Time Seen by Provider: 08:00 Pt reports that she is feeling worse today - she has abdominal pain, but denies nausea. She reports that she is having feces from her vagina and her raymundo was full of brown urine Review of Systems General: No Chills; Fatigue, Malaise HEENT: No Dysphasia, No Sore Throat Pulmonary: No Dyspnea, No Cough Cardiovascular: No: Chest Pain, Palpitations Gastrointestinal: Abdominal Pain; No: Nausea, Vomiting Genitourinary: Other (feces in raymundo) Neurological: No: Weakness, Confusion All Other Systems Reviewed All Other Systems Reviewed: Yes Objective Exam Vital Signs Vital Signs Date Time Temp Pulse Resp B/P (MAP) Pulse Ox O2 Delivery O2 Flow Rate FiO2 12/24/21 07:00 72 16 129/62 98 Nasal Cannula 2.00 12/24/21 07:00 69 12/24/21 06:00 74 13 136/58 97 Nasal Cannula 2.00 12/24/21 05:00 70 15 131/70 96 Nasal Cannula 2.00 12/24/21 04:00 62 9 147/69 98 Nasal Cannula 2.00 12/24/21 03:51 36.0 12/24/21 03:19 96 Nasal Cannula 2.00 12/24/21 03:00 69 15 138/63 96 Nasal Cannula 2.00 12/24/21 02:00 72 16 157/72 97 Nasal Cannula 2.00 12/24/21 01:00 74 12/24/21 01:00 74 11 138/58 97 Nasal Cannula 2.00 12/24/21 00:00 75 11 141/61 95 Nasal Cannula 2.00 12/23/21 23:40 36.4 12/23/21 23:37 96 Nasal Cannula 2.00 12/23/21 23:00 77 16 132/62 91 Nasal Cannula 2.00 12/23/21 22:00 75 17 119/98 95 Nasal Cannula 2.00 12/23/21 21:55 78 22 92 Nasal Cannula 2.00 12/23/21 21:00 76 12 159/62 95 Room Air 12/23/21 20:03 75 149/67 94 Room Air 12/23/21 20:00 96 Room Air 12/23/21 19:34 36.4 12/23/21 19:22 96 Room Air 12/23/21 19:00 80 14 156/67 97 Room Air 12/23/21 19:00 80 12/23/21 18:00 71 22 140/65 96 Room Air 12/23/21 17:29 36.2 78 20 138/75 92 Room Air 12/23/21 17:17 78 12/23/21 17:16 36.2 78 20 138/75 (96) Room Air I & O 12/24/21 07:00 Intake Total 5200 ml Output Total 1645 ml Balance 3555 ml General Appearance: No Apparent Distress, WD/WN HEENT: PERRL/EOMI, Pharynx Normal Neck: Full Range of Motion, Normal Inspection, Non Tender, Supple Respiratory: Chest Non Tender, Lungs Clear, Normal Breath Sounds, No Accessory Muscle Use, No Respiratory Distress Cardiovascular: Regular Rate, Rhythm, No Edema, Normal Peripheral Pulses Gastrointestinal: Other (DECREASED BOWEL SOUNDS, TTP LLQ, SUPRAPUBIC REGION) Genital/Rectal: Other (BROWNISH DISCHARGE FROM VAGINAL REGION WITH BLOOD ON GLOVE, NO OPEN WOUND ABLE TO BE APPRECIATED ON LIMITED EXAM) Extremity: Normal Capillary Refill, Normal Range of Motion, Non Tender, No Calf Tenderness Neurologic/Psychiatric: Alert, Oriented x3, No Motor/Sensory Deficits, Normal Mood/Affect Skin: Normal Color, Warm/Dry Lymphatic: No Adenopathy Results Lab Laboratory Tests 12/23/21 18:40: White Blood Count 27.8H, Red Blood Count 3.28L, Hemoglobin 10.5#L, Hematocrit 32L, Mean Corpuscular Volume 98, Mean Corpuscular Hemoglobin 32, Mean Corpuscular Hemoglobin Concent 33, Red Cell Distribution Width 16.5H, Platelet Count 221, Mean Platelet Volume 11.0, Immature Granulocyte % (Auto) 1, Neutrophils (%) (Auto) 83H, Lymphocytes (%) (Auto) 7L, Monocytes (%) (Auto) 7, E osinophils (%) (Auto) 1, Basophils (%) (Auto) 0, Neutrophils # (Auto) 22.9H, Lymphocytes # (Auto) 2.0, Monocytes # (Auto) 2.0H, Eosinophils # (Auto) 0.4H, Basophils # (Auto) 0.1, Immature Granulocyte # (Auto) 0.3H, Neutrophils % (Manual) 86, Lymphocytes % (Manual) 5, Monocytes % (Manual) 3, Eosinophils % (Manual) 1, Basophils % (Manual) 0, Metamyelocytes % 1, Band Neutrophils 4, Anisocytosis SLIGHT, Sodium Level 136, Potassium Level 3.8, Chloride Level 104, Carbon Dioxide Level 20L, Anion Gap 12, Blood Urea Nitrogen 24H, Creatinine 0.80, Estimat Glomerular Filtration Rate 77, BUN/Creatinine Ratio 30, Glucose Level 127H, Lactic Acid Level 1.10, Calcium Level 9.1, Corrected Calcium 9.7, Total Bilirubin 0.4, Aspartate Amino Transf (AST/SGOT) 16, Alanine Aminotransferase (ALT/SGPT) 16, Alkaline Phosphatase 76, Total Protein 6.4, Albumin 3.3 12/23/21 23:31: Glucometer 119H 12/24/21 04:20: White Blood Count 20.5H, Red Blood Count 3.72L, Hemoglobin 11.8, Hematocrit 36, Mean Corpuscular Volume 97, Mean Corpuscular Hemoglobin 32, Mean Corpuscular Hemoglobin Concent 33, Red Cell Distribution Width 16.7H, Platelet Count 183, Mean Platelet Volume 11.0, Immature Granulocyte % (Auto) 1, Neutrophils (%) (Auto) 84H, Lymphocytes (%) (Auto) 7L, Monocytes (%) (Auto) 6, Eosinophils (%) (Auto) 2, Basophils (%) (Auto) 0, Neutrophils # (Auto) 17.2H, Lymphocytes # (Auto) 1.4, Monocytes # (Auto) 1.3H, Eosinophils # (Auto) 0.3, Basophils # (Auto) 0.1, Immature Granulocyte # (Auto) 0.2H, Sodium Level 139, Potassium Level 4.1, Chloride Level 111H, Carbon Dioxide Level 17L, Anion Gap 11, Blood Urea Nitrogen 21H, Creatinine 0.69, Estimat Glomerular Filtration Rate 90, BUN/Creatinine Ratio 30, Glucose Level 112H, Calcium Level 8.2L, Corrected Calcium 9.0, Total Bilirubin 0.6, Aspartate Amino Transf (AST/SGOT) 18, Alanine Aminotransferase (ALT/SGPT) 13, Alkaline Phosphatase 65, Total Protein 5.8L, Albumin 3.0L, Phosphorus Level 2.7, Magnesium Level 1.8 Assessment/Plan Assessment/Plan Admission Dx Sepsis Leukocytosis Sigmoid diverticulitis 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 - started on Sepsis replacement protocol for fluids - IV zosyn initiated as well - Blood cultures obtained. - Consult to Dr. Rai has been called and surgical intervention planned for today Cholelethiasis - not current issue - will address at a later time or when/if symptoms arise. Hypertension - holding home meds for now, will treat with IV meds if needed. Diabetes Mellitus - holding home meds for now, will treat with insulin if needed. - ICU protocol for diabetes/fsbs checks/insulin Bipolar Mood Disorder - - holding home meds for now Post-Procedural Hypothyroidism - - holding home meds for now, will treat with IV meds if needed. 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
--- NOTE | 2021-12-24 11:14 | Tele-ICU Progress Note ---
Subjective Date Seen by a Provider: Dec 24, 2021 Time Seen by a Provider: 11:14 Subjective/Events-last exam (Tele-ICU Physician , Progress Note ) Available chart/ vitals / labs / Images reviewed Video assessment done using teleICU camera, rest of exam as per RN Discussed with RN , EXAM PER RN Events overnight : Afebrile FiO2 - 3l I/O =+ Drips: Pressors: , hemodynamically stable Consultants: Hospital course: 12/23 76 yr female DX: Sepsis, Fistula Sent from MD office A/P Sigmoid diverticulitis with a suspicion for fistulization to the vaginal cuff as well as urinary bladder. ( CT 12/23 - - ABX started - S xconsulted DM - ISS Lines : (Central Line Necessity Reviewed) Mejia: 12/23 OG: Nutrition: npo Analgesia: Anxiety/ delirium VTE Prophylaxis: SCD , lovenox if ok with SX - RN to adress Stress Ulcer Prophylaxis: start PPI if kept NPO > 24 h Plans in collaboration with bedside consultants and IM MDs. Discussed with RN to reach out if any questions or concerns A total of 20 minutes of critical care time was devoted to this patient today, required to treat and/or prevent further deterioration of critical care condition ( as above ) . Sepsis Event Evaluation Height, Weight, BMI Height: 5'1.00" Weight: 228lbs. 0.0oz. [id number]; 42.76 BMI Method: Focused Exam Lactate Level 12/23/21 18:40: Lactic Acid Level 1.10 Exam Exam Patient acknowledged, consented, and participated in this virtual visit which was conducted using real time audio/video Vital Signs Date Time Temp Pulse Resp B/P (MAP) Pulse Ox O2 Delivery O2 Flow Rate FiO2 12/24/21 11:00 58 26 149/57 98 Nasal Cannula 2.00 12/24/21 10:00 68 15 98 Nasal Cannula 2.00 12/24/21 09:55 Nasal Cannula 2.00 12/24/21 09:00 72 8 132/66 98 Nasal Cannula 2.00 12/24/21 08:00 75 18 118/63 99 Nasal Cannula 2.00 12/24/21 08:00 36.2 12/24/21 07:00 72 16 129/62 98 Nasal Cannula 2.00 12/24/21 07:00 69 12/24/21 06:00 74 13 136/58 97 Nasal Cannula 2.00 12/24/21 05:00 70 15 131/70 96 Nasal Cannula 2.00 12/24/21 04:00 62 9 147/69 98 Nasal Cannula 2.00 12/24/21 03:51 36.0 12/24/21 03:19 96 Nasal Cannula 2.00 12/24/21 03:00 69 15 138/63 96 Nasal Cannula 2.00 12/24/21 02:00 72 16 157/72 97 Nasal Cannula 2.00 12/24/21 01:00 74 12/24/21 01:00 74 11 138/58 97 Nasal Cannula 2.00 12/24/21 00:00 75 11 141/61 95 Nasal Cannula 2.00 12/23/21 23:40 36.4 12/23/21 23:37 96 Nasal Cannula 2.00 12/23/21 23:00 77 16 132/62 91 Nasal Cannula 2.00 12/23/21 22:00 75 17 119/98 95 Nasal Cannula 2.00 12/23/21 21:55 78 22 92 Nasal Cannula 2.00 12/23/21 21:00 76 12 159/62 95 Room Air 12/23/21 20:03 75 149/67 94 Room Air 12/23/21 20:00 96 Room Air 12/23/21 19:34 36.4 12/23/21 19:22 96 Room Air 12/23/21 19:00 80 14 156/67 97 Room Air 12/23/21 19:00 80 12/23/21 18:00 71 22 140/65 96 Room Air 12/23/21 17:29 36.2 78 20 138/75 92 Room Air 12/23/21 17:17 78 12/23/21 17:16 36.2 78 20 138/75 (96) Room Air I & O 12/24/21 07:00 Intake Total 5200 ml Output Total 1645 ml Balance 3555 ml Height & Weight Height: 5'1.00" Weight: 228lbs. 0.0oz. [id number]; 42.76 BMI Method: General Appearance: No Apparent Distress, WD/WN HEENT: PERRL/EOMI, Pharynx Normal Neck: Full Range of Motion, Normal Inspection, Non Tender, Supple Respiratory: Chest Non Tender, Lungs Clear, Normal Breath Sounds, No Accessory Muscle Use, No Respiratory Distress Cardiovascular: Regular Rate, Rhythm, No Edema, Normal Peripheral Pulses Capillary Refill: Less Than 3 Seconds Gastrointestinal: soft, other (Tenderness lower abdomen more midline) Extremity: Normal Capillary Refill, Normal Range of Motion, Non Tender, No Calf Tenderness Neurologic/Psychiatric: Alert, Oriented x3, No Motor/Sensory Deficits, Normal Mood/Affect Skin: Normal Color, Warm/Dry Lymphatic: No Adenopathy Results Lab Laboratory Tests 12/23/21 18:40 12/24/21 04:20 Assessment/Plan Assessment/Plan ` HAILEE CARBAJAL MD Dec 24, 2021 11:14
--- NOTE | 2021-12-24 14:06 | Progress Note - Surgery ---
Subjective Date Seen by a Provider: Dec 24, 2021 Time Seen by a Provider: 13:57 Subjective/Events-last exam Still with lower abdominal pain. She is having a lot of stool out vagina and through raymundo now. Feels uncomfortable. WBC slightly down now 20.5. Patient denies n/v fever sweats chills shortness of breath or chest pain. Focused Exam Lactate Level 12/23/21 18:40: Lactic Acid Level 1.10 Objective Exam Vital Signs Date Time Temp Pulse Resp B/P (MAP) Pulse Ox O2 Delivery O2 Flow Rate FiO2 12/24/21 12:49 70 12/24/21 12:00 72 14 138/67 96 Nasal Cannula 2.00 12/24/21 11:00 58 26 149/57 98 Nasal Cannula 2.00 12/24/21 10:00 68 15 98 Nasal Cannula 2.00 12/24/21 09:55 Nasal Cannula 2.00 12/24/21 09:00 72 8 132/66 98 Nasal Cannula 2.00 12/24/21 08:00 75 18 118/63 99 Nasal Cannula 2.00 12/24/21 08:00 36.2 12/24/21 07:00 72 16 129/62 98 Nasal Cannula 2.00 12/24/21 07:00 69 12/24/21 06:00 74 13 136/58 97 Nasal Cannula 2.00 12/24/21 05:00 70 15 131/70 96 Nasal Cannula 2.00 12/24/21 04:00 62 9 147/69 98 Nasal Cannula 2.00 12/24/21 03:51 36.0 12/24/21 03:19 96 Nasal Cannula 2.00 12/24/21 03:00 69 15 138/63 96 Nasal Cannula 2.00 12/24/21 02:00 72 16 157/72 97 Nasal Cannula 2.00 12/24/21 01:00 74 12/24/21 01:00 74 11 138/58 97 Nasal Cannula 2.00 12/24/21 00:00 75 11 141/61 95 Nasal Cannula 2.00 12/23/21 23:40 36.4 12/23/21 23:37 96 Nasal Cannula 2.00 12/23/21 23:00 77 16 132/62 91 Nasal Cannula 2.00 12/23/21 22:00 75 17 119/98 95 Nasal Cannula 2.00 12/23/21 21:55 78 22 92 Nasal Cannula 2.00 12/23/21 21:00 76 12 159/62 95 Room Air 12/23/21 20:03 75 149/67 94 Room Air 12/23/21 20:00 96 Room Air 12/23/21 19:34 36.4 12/23/21 19:22 96 Room Air 12/23/21 19:00 80 14 156/67 97 Room Air 12/23/21 19:00 80 12/23/21 18:00 71 22 140/65 96 Room Air 12/23/21 17:29 36.2 78 20 138/75 92 Room Air 12/23/21 17:17 78 12/23/21 17:16 36.2 78 20 138/75 (96) Room Air I & O 12/24/21 07:00 Intake Total 5200 ml Output Total 1645 ml Balance 3555 ml Capillary Refill : Less Than 3 Seconds General Appearance: No Apparent Distress, WD/WN, Obese HEENT: PERRL/EOMI, Pharynx Normal Neck: Full Range of Motion, Normal Inspection, Non Tender, Supple Respiratory: Chest Non Tender, No Accessory Muscle Use, No Respiratory Distress Cardiovascular: Regular Rate, Rhythm, No Edema, No JVD, Normal Peripheral Pulses Gastrointestinal: soft, other (Tenderness lower abdomen more midline) Extremity: Normal Capillary Refill, Normal Range of Motion, Non Tender, No Calf Tenderness Neurologic/Psychiatric: Alert, Oriented x3, No Motor/Sensory Deficits, Normal Mood/Affect Skin: Normal Color, Warm/Dry Lymphatic: No Adenopathy Other comments stool colored drainage from raymundo and vagina Results Lab Laboratory Tests 12/23/21 18:40: White Blood Count 27.8H, Red Blood Count 3.28L, Hemoglobin 10.5#L, Hematocrit 32L, Mean Corpuscular Volume 98, Mean Corpuscular Hemoglobin 32, Mean Corpuscular Hemoglobin Concent 33, Red Cell Distribution Width 16.5H, Platelet Count 221, Mean Platelet Volume 11.0, Immature Granulocyte % (Auto) 1, Neutrophils (%) (Auto) 83H, Lymphocytes (%) (Auto) 7L, Monocytes (%) (Auto) 7, Eosinophils (%) (Auto) 1, Basophils (%) (Auto) 0, Neutrophils # (Auto) 22.9H, Lymphocytes # (Auto) 2.0, Monocytes # (Auto) 2.0H, Eosinophils # (Auto) 0.4H, Basophils # (Auto) 0.1, Immature Granulocyte # (Auto) 0.3H, Neutrophils % (Manual) 86, Lymphocytes % (Manual) 5, Monocytes % (Manual) 3, Eosinophils % (Manual) 1, Basophils % (Manual) 0, Metamyelocytes % 1, Band Neutrophils 4, Anisocytosis SLIGHT, Sodium Level 136, Potassium Level 3.8, Chloride Level 104, Carbon Dioxide Level 20L, Anion Gap 12, Blood Urea Nitrogen 24H, Creatinine 0.80, Estimat Glomerular Filtration Rate 77, BUN/Creatinine Ratio 30, Glucose Level 127H, Lactic Acid Level 1.10, Calcium Level 9.1, Corrected Calcium 9.7, Total Bilirubin 0.4, Aspartate Amino Transf (AST/SGOT) 16, Alanine Aminotransferase (ALT/SGPT) 16, Alkaline Phosphatase 76, Total Protein 6.4, Albumin 3.3 12/23/21 23:31: Glucometer 119H 12/24/21 04:20: White Blood Count 20.5H, Red Blood Count 3.72L, Hemoglobin 11.8, Hematocrit 36, Mean Corpuscular Volume 97, Mean Corpuscular Hemoglobin 32, Mean Corpuscular Hemoglobin Concent 33, Red Cell Distribution Width 16.7H, Platelet Count 183, Mean Platelet Volume 11.0, Immature Granulocyte % (Auto) 1, Neutrophils (%) (Auto) 84H, Lymphocytes (%) (Auto) 7L, Monocytes (%) (Auto) 6, Eosinophils (%) (Auto) 2, Basophils (%) (Auto) 0, Neutrophils # (Auto) 17.2H, Lymphocytes # (Auto) 1.4, Monocytes # (Auto) 1.3H, Eosinophils # (Auto) 0.3, Basophils # (Auto) 0.1, Immature Granulocyte # (Auto) 0.2H, Sodium Level 139, Potassium Level 4.1, Chloride Level 111H, Carbon Dioxide Level 17L, Anion Gap 11, Blood Urea Nitrogen 21H, Creatinine 0.69, Estimat Glomerular Filtration Rate 90, BUN/Creatinine Ratio 30, Glucose Level 112H, Calcium Level 8.2L, Corrected Calcium 9.0, Total Bilirubin 0.6, Aspartate Amino Transf (AST/SGOT) 18, Alanine Aminotransferase (ALT/SGPT) 13, Alkaline Phosphatase 65, Total Protein 5.8L, Albumin 3.0L, Phosphorus Level 2.7, Magnesium Level 1.8 Assessment/Plan Assessment/Plan Assessment/Plan Sepsis Leukocytosis Sigmoid diverticulitis 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 Discussed with patient doing diagnostic laparoscopy all other possible open indicated procedures with likely end colostomy for diversion. She understands may still need further surgical intervention at later time, and agrees with plan. NPO IV Hydration Continue abx. To OR today Clinical Quality Measures DVT/VTE Risk/Contraindication: Contraindications-Pharm: Other *list below* Other: PT HAVING VAGINAL AND BLADDER BLEEDING FROM [facility] ASHLEY RAMSEY DO Dec 24, 2021 14:06
[2021-12-24] MEDS: LACTATED RINGERS 1,000 ML IV PRN ×2 (18:18→20:00)
[2021-12-24] MEDS ORDERED: LIDOCAINE/EPI 2% 1:200,00 (XYLOCAINE) 10 ML VIAL ONE (18:50)
[2021-12-24] MEDS ORDERED: fentaNYL INJ 100 MCG/2 ML AMP ONE (19:12)
[2021-12-24] MEDS ORDERED: ONDANSETRON 4 MG/2 ML (SDV) Z0FRAN ONE (19:13)
[2021-12-24] MEDS ORDERED: HYDROmorphone 2 MG/ML VIAL (DILAUDID) ONE (19:13)
[2021-12-24] MEDS ORDERED: LACTATED RINGERS 1,000 ML IV PRN (20:15)
[2021-12-24] MEDS ORDERED: HYDROmorphone 2 MG/ML VIAL (DILAUDID) IV ONE (20:30)
[2021-12-24] MEDS ORDERED: PROMETHAZINE INJ 25 MG/ML (PHENERGAN) AMP IVP ONE (20:30)
[2021-12-24] MEDS ORDERED: ONDANSETRON 4 MG/2 ML (SDV) Z0FRAN IVP PRN (20:30)
[2021-12-24] MEDS ORDERED: fentaNYL INJ 100 MCG/2 ML AMP IVP ONE (20:30)
--- NOTE | 2021-12-24 23:47 | Progress Note-Post Operative ---
Post-Operative Progess Note Surgeon (s)/Costumer Assistant (s) Surgeon ASHLEY RAMSEY DO Costumer Assistant: na Pre-Operative Diagnosis colovaginal colovesicular fistula Post-Operative Diagnosis same Procedure & Operative Findings Date of Procedure 12/24/21 Procedure Performed/Findings diagnostic laparoscopy diverting loop colosotmy and drain placement Anesthesia Type general Estimated Blood Loss Estimated blood loss (mL): minimal Specimens/Packing Specimens Removed na ASHLEY RAMSEY DO Dec 24, 2021 23:47
[2021-12-25] MEDS: NS IV 1000 ML 1,000 ML IV SCH ×5 (00:03→18:14)
[2021-12-25] MEDS: inSUlin ASPART (NovoLOG) 1 UNIT/0.01 ML (CHARGE PER UNIT) SQ SCH ×4 (00:17→17:39)
[2021-12-25] MEDS: fentaNYL INJ 100 MCG/2 ML AMP IVP PRN ×7 (00:20→16:12)
[2021-12-25 03:19] LABS: BASOPHILS # (AUTO) 0.1 10^3/uL (0.0-0.1); BASOPHILS % (AUTO) 0 % (0-10); EOSINOPHILS % (AUTO) 0 % (0-10); HEMATOCRIT 38 % (35-52); HEMOGLOBIN 12.3 g/dL (11.5-16.0); LYMPHOCYTES % (AUTO) 5 % (12-44); MEAN CORPUSCULAR HEMOGLOBIN 32 pg (25-34); MEAN CORPUSCULAR HGB CONC 32 g/dL (32-36); MEAN CORPUSCULAR VOLUME 98 fL (80-99); MEAN PLATELET VOLUME 10.6 fL (9.0-12.2); MONOCYTES # (AUTO) 0.2 10^3/uL (0.0-1.0); MONOCYTES % (AUTO) 1 % (0-12); NEUTROPHILS # (AUTO) 19.3 10^3/uL (1.8-7.8); NEUTROPHILS % (AUTO) 92 % (42-75); PLATELET COUNT 201 10^3/uL (130-400); WHITE BLOOD COUNT 21.1 10^3/uL (4.3-11.0)
[2021-12-25 03:33] LABS: POTASSIUM 4.4 MMOL/L (3.6-5.0)
[2021-12-25 03:37] LABS: BILIRUBIN,TOTAL 0.4 MG/DL (0.1-1.0)
[2021-12-25 03:39] LABS: CREATININE SERUM 0.71 MG/DL (0.60-1.30); PHOSPHORUS 3.1 MG/DL (2.3-4.7)
[2021-12-25 03:43] LABS: MAGNESIUM 1.9 MG/DL (1.6-2.4)
[2021-12-25] MEDS: POTASSIUM CL 10MEQ/50ML IVPB 50 ML IV SCH (04:40)
[2021-12-25] MEDS: KCL 20 MEQ TAB (K-DUR) PO SCH (04:40)
[2021-12-25] MEDS: MAGNESIUM 1 GM/100 ML IVPB 100 ML IV SCH (04:40)
--- NOTE | 2021-12-25 08:12 | Progress Note ---
Subjective Subjective Date Seen by Provider: Dec 25, 2021 Time Seen by Provider: 08:10 STAFF REPORTS PT IS COMPLAINING OF LESS PAIN SINCE SURGICAL INTERVENTION. KIKE REPORTS THAT SHE IS FEELING BETTER, HER MOUTH IS DRY, BUT SHE IS FEELING MUCH LESS PAIN THAN PRIOR TO SURGERY - HER PAIN IS A "7 INSTEAD OF 29,000" Review of Systems General: No Chills, No Fatigue, No Malaise HEENT: No Head Aches Pulmonary: No Dyspnea, No Cough Cardiovascular: No: Chest Pain, Palpitations Gastrointestinal: Abdominal Pain (BUT IMPROVED); No: Nausea, Vomiting Genitourinary: Other (GLORIA IN PLACE) Musculoskeletal: back pain Neurological: No: Weakness, Confusion All Other Systems Reviewed All Other Systems Reviewed: Yes Objective Exam Vital Signs Vital Signs Date Time Temp Pulse Resp B/P (MAP) Pulse Ox O2 Delivery O2 Flow Rate FiO2 12/25/21 07:57 Nasal Cannula 1.00 12/25/21 07:34 35.9 12/25/21 07:00 69 12/25/21 07:00 67 13 125/99 92 Room Air 12/25/21 06:00 68 20 116/83 94 Room Air 12/25/21 06:00 96 Nasal Cannula 2.00 12/25/21 05:47 Room Air 12/25/21 05:15 66 13 96 OxyMask 3.00 12/25/21 05:00 61 9 128/53 97 OxyMask 5.00 12/25/21 04:00 60 8 118/53 96 OxyMask 5.00 12/25/21 03:56 36.3 12/25/21 03:48 96 OxyMask 5.00 12/25/21 03:00 71 9 133/62 96 OxyMask 5.00 12/25/21 02:00 63 20 120/51 96 OxyMask 5.00 12/25/21 01:00 73 12/25/21 01:00 66 13 137/78 96 OxyMask 5.00 12/25/21 00:00 67 10 128/74 95 OxyMask 5.00 12/25/21 00:00 36.2 12/24/21 23:04 96 OxyMask 5.00 12/24/21 23:00 67 8 136/66 94 OxyMask 5.00 12/24/21 22:00 61 9 145/64 96 OxyMask 5.00 12/24/21 21:15 36.2 20 146/63 (90) 95 OxyMask 5 12/24/21 21:15 OxyMask 5 12/24/21 21:10 20 140/63 (88) 95 OxyMask 5 12/24/21 21:09 66 12 146/63 95 OxyMask 10.00 12/24/21 21:00 70 12/24/21 21:00 20 141/63 (89) 96 OxyMask 5 12/24/21 21:00 OxyMask 5 12/24/21 20:50 20 143/63 (89) 96 OxyMask 6 12/24/21 20:45 OxyMask 6 12/24/21 20:40 20 140/56 (84) 96 OxyMask 6 12/24/21 20:40 96 OxyMask 6.00 12/24/21 20:30 18 163/75 (104) 96 OxyMask 6 12/24/21 20:30 OxyMask 6 12/24/21 20:22 36.1 16 173/74 (107) 96 OxyMask 6 12/24/21 20:22 OxyMask 6 12/24/21 18:00 64 17 154/59 95 Nasal Cannula 2.00 12/24/21 17:00 71 10 127/80 96 Nasal Cannula 2.00 12/24/21 16:00 73 20 142/67 95 Nasal Cannula 2.00 12/24/21 16:00 95 Nasal Cannula 2.00 12/24/21 15:58 36.1 12/24/21 15:00 67 11 156/61 94 Nasal Cannula 2.00 12/24/21 14:00 63 12 149/83 97 Nasal Cannula 2.00 12/24/21 13:00 67 18 134/74 97 Nasal Cannula 2.00 12/24/21 12:49 70 12/24/21 12:00 95 Nasal Cannula 2.00 12/24/21 12:00 72 14 138/67 96 Nasal Cannula 2.00 12/24/21 11:00 58 26 149/57 98 Nasal Cannula 2.00 12/24/21 10:00 68 15 98 Nasal Cannula 2.00 12/24/21 09:55 Nasal Cannula 2.00 12/24/21 09:00 72 8 132/66 98 Nasal Cannula 2.00 I & O 12/25/21 07:00 Intake Total 3200 ml Output Total 3855 ml Balance -655 ml General Appearance: No Apparent Distress, WD/WN, Obese HEENT: PERRL/EOMI, Pharynx Normal Neck: Full Range of Motion, Normal Inspection, Non Tender, Supple Respiratory: Chest Non Tender, Lungs Clear, Normal Breath Sounds, No Accessory Muscle Use, No Respiratory Distress Cardiovascular: Regular Rate, Rhythm, No Edema, No JVD, Normal Peripheral Pulses Gastrointestinal: Other (DECREASED BUT PRESENT BOWEL SOUNDS, SURGICAL SITE AT UMBILICUS WITH MINIMAL BLOOD ON BANDAGE, AND OSTOMY SITE IS SHOWING SLIGHTLY BLOODY FLUID OUTPUT, NO BOWEL IN BAG, STUMP IS HEALTHY APPEARING) Genital/Rectal: Other (BROWNISH DISCHARGE FROM VAGINAL REGION WITH BLOOD ON GLOVE, NO OPEN WOUND ABLE TO BE APPRECIATED ON LIMITED EXAM) Extremity: Normal Capillary Refill, Normal Range of Motion, Non Tender, No Calf Tenderness Neurologic/Psychiatric: Alert, Oriented x3, No Motor/Sensory Deficits, Normal Mood/Affect Skin: Normal Color, Warm/Dry Lymphatic: No Adenopathy Results Lab Laboratory Tests 12/24/21 17:37: Glucometer 91 12/25/21 00:11: Glucometer 114H 12/25/21 03:11: White Blood Count 21.1H, Red Blood Count 3.86, Hemoglobin 12.3, Hematocrit 38, Mean Corpuscular Volume 98, Mean Corpuscular Hemoglobin 32, Mean Corpuscular Hemoglobin Concent 32, Red Cell Distribution Width 16.6H, Platelet Count 201, Mean Platelet Volume 10.6, Immature Granulocyte % (Auto) 2, Neutrophils (%) (Auto) 92H, Lymphocytes (%) (Auto) 5L, Monocytes (%) (Auto) 1, Eosinophils (%) (Auto) 0, Basophils (%) (Auto) 0, Neutrophils # (Auto) 19.3H, Lymphocytes # (Auto) 1.0, Monocytes # (Auto) 0.2, Eosinophils # (Auto) 0.0, Basophils # (Auto) 0.1, Immature Granulocyte # (Auto) 0.5H, Sodium Level 140, Potassium Level 4.4, Chloride Level 112H, Carbon Dioxide Level 14L, Anion Gap 14, Blood Urea Nitrogen 18, Creatinine 0.71, Estimat Glomerular Filtration Rate 89, BUN/Creatinine Ratio 25, Glucose Level 126H, Calcium Level 8.0L, Corrected Calcium 8.8, Phosphorus Level 3.1, Magnesium Level 1.9, Total Bilirubin 0.4, Aspartate Amino Transf (AST/SGOT) 21, Alanine Aminotransferase (ALT/SGPT) 16, Alkaline Phosphatase 69, Total Protein 6.0L, Albumin 3.0L Microbiology 12/23/21 Blood Culture - Preliminary, Resulted No growth Assessment/Plan Assessment/Plan Admission Dx Sepsis Leukocytosis Sigmoid diverticulitis 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 - Consult to Dr. Rai surgery with ostomy and drain placed on 12/24/21 - continue with management per surgery - continue with slow introduction of fluids per surgery - ice chips for now. Cholelethiasis - not current issue - will address at a later time or when/if symptoms arise. Hypertension - holding home meds for now, will treat with IV meds if needed. Diabetes Mellitus - holding home meds for now, will treat with insulin if needed. - ICU protocol for diabetes/fsbs checks/insulin Bipolar Mood Disorder - restart with sips of water Post-Procedural Hypothyroidism - oral synthroid restarted. 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
--- NOTE | 2021-12-25 08:17 | Anesthesia-General Post-Op ---
General Patient Condition Mental Status/LOC: Same as Preop Cardiovascular: Satisfactory Nausea/Vomiting: Absent Respiratory: Satisfactory Pain: Controlled Complications: Absent Post Op Complications Complications None Follow Up Care/Instructions Patient Instructions None needed. Anesthesia/Patient Condition Patient Condition Patient is doing well, no complaints, stable vital signs, no apparent adverse anesthesia problems. No complications reported per nursing. TRUNG SELF CRNA Dec 25, 2021 08:17
[2021-12-25] MEDS: PIPERACILLIN SODIUM/TAZOBACTAM 4.5 GM in NS (IVPB) 100 ML IV SCH ×2 (08:18→16:13)
[2021-12-25] MEDS: PANTOPRAZOLE 40 MG (PROTONIX) VIAL IV SCH (08:18)
--- NOTE | 2021-12-25 09:11 | Tele-ICU Progress Note ---
Subjective Date Seen by a Provider: Dec 25, 2021 Time Seen by a Provider: 08:05 Subjective/Events-last exam This virtual visit was conducted using real time audio/video. Thank you for asking us to see this patient for respiratory insufficiency post op ex lap for colo-ves, colo-vag fistula Recent events: PE: VSS. O2 sat 97% on 2 LPM HEENT: No obvious masses, adenopathy or JVD. Chest: clear to auscultation. CV: RRR S1 S2 No murmur or added sounds. Abd: Non-tender. Bowel sounds Y. : Unremarkable. [address] way cath, TON drain. [employer]/psychiatric: Grossly intact. No obvious focal findings. Extremities: No edema. Capillary refill < 3 seconds. Skin: unremarkable. Results: Elevated WCC 21.1, BG 126. CXR: Clear. Available chart/ vitals / labs / images reviewed. Video assessment done using teleICU camera, rest of exam as per RN. A/P: Respiratory insufficiency: Continue present management with NC Monitor for increasing oxygenation needs and/or need for intubation. Critical Care: critically ill patient. Cont. abx, SSI. Discussed with RN Yazmin. Asked RN to reach out to eICU if any questions or concern s later. Time spent with patient/coordination of care with other health professionals (mins): 15 Sepsis Event Evaluation Height, Weight, BMI Height: 5'1.00" Weight: 228lbs. 0.0oz. [id number]; 44.62 BMI Method: Focused Exam Lactate Level 12/23/21 18:40: Lactic Acid Level 1.10 Exam Exam Patient acknowledged, consented, and participated in this virtual visit which was conducted using real time audio/video Vital Signs Date Time Temp Pulse Resp B/P (MAP) Pulse Ox O2 Delivery O2 Flow Rate FiO2 12/25/21 08:00 52 17 128/61 97 Nasal Cannula 1.00 12/25/21 07:57 Nasal Cannula 1.00 12/25/21 07:34 35.9 12/25/21 07:00 69 12/25/21 07:00 67 13 125/99 92 Room Air 12/25/21 06:00 68 20 116/83 94 Room Air 12/25/21 06:00 96 Nasal Cannula 2.00 12/25/21 05:47 Room Air 12/25/21 05:15 66 13 96 OxyMask 3.00 12/25/21 05:00 61 9 128/53 97 OxyMask 5.00 12/25/21 04:00 60 8 118/53 96 OxyMask 5.00 12/25/21 03:56 36.3 12/25/21 03:48 96 OxyMask 5.00 12/25/21 03:00 71 9 133/62 96 OxyMask 5.00 12/25/21 02:00 63 20 120/51 96 OxyMask 5.00 12/25/21 01:00 73 12/25/21 01:00 66 13 137/78 96 OxyMask 5.00 12/25/21 00:00 67 10 128/74 95 OxyMask 5.00 12/25/21 00:00 36.2 12/24/21 23:04 96 OxyMask 5.00 12/24/21 23:00 67 8 136/66 94 OxyMask 5.00 12/24/21 22:00 61 9 145/64 96 OxyMask 5.00 12/24/21 21:15 36.2 20 146/63 (90) 95 OxyMask 5 12/24/21 21:15 OxyMask 5 12/24/21 21:10 20 140/63 (88) 95 OxyMask 5 12/24/21 21:09 66 12 146/63 95 OxyMask 10.00 12/24/21 21:00 70 12/24/21 21:00 20 141/63 (89) 96 OxyMask 5 12/24/21 21:00 OxyMask 5 12/24/21 20:50 20 143/63 (89) 96 OxyMask 6 12/24/21 20:45 OxyMask 6 12/24/21 20:40 20 140/56 (84) 96 OxyMask 6 12/24/21 20:40 96 OxyMask 6.00 12/24/21 20:30 18 163/75 (104) 96 OxyMask 6 12/24/21 20:30 OxyMask 6 12/24/21 20:22 36.1 16 173/74 (107) 96 OxyMask 6 12/24/21 20:22 OxyMask 6 12/24/21 18:00 64 17 154/59 95 Nasal Cannula 2.00 12/24/21 17:00 71 10 127/80 96 Nasal Cannula 2.00 12/24/21 16:00 73 20 142/67 95 Nasal Cannula 2.00 12/24/21 16:00 95 Nasal Cannula 2.00 12/24/21 15:58 36.1 12/24/21 15:00 67 11 156/61 94 Nasal Cannula 2.00 12/24/21 14:00 63 12 149/83 97 Nasal Cannula 2.00 12/24/21 13:00 67 18 134/74 97 Nasal Cannula 2.00 12/24/21 12:49 70 12/24/21 12:00 95 Nasal Cannula 2.00 12/24/21 12:00 72 14 138/67 96 Nasal Cannula 2.00 12/24/21 11:00 58 26 149/57 98 Nasal Cannula 2.00 12/24/21 10:00 68 15 98 Nasal Cannula 2.00 12/24/21 09:55 Nasal Cannula 2.00 I & O 12/25/21 07:00 Intake Total 3200 ml Output Total 3855 ml Balance -655 ml Height & Weight Height: 5'1.00" Weight: 228lbs. 0.0oz. 103.058309uh; 44.62 BMI Method: General Appearance: No Apparent Distress, WD/WN, Obese HEENT: PERRL/EOMI, Pharynx Normal Neck: Full Range of Motion, Normal Inspection, Non Tender, Supple Respiratory: Chest Non Tender, No Accessory Muscle Use, No Respiratory Distress Cardiovascular: Regular Rate, Rhythm, No Edema, No JVD, Normal Peripheral Pulses Capillary Refill: Less Than 3 Seconds Gastrointestinal: soft, other (Tenderness lower abdomen more midline) Extremity: Normal Capillary Refill, Normal Range of Motion, Non Tender, No Calf Tenderness Neurologic/Psychiatric: Alert, Oriented x3, No Motor/Sensory Deficits, Normal Mood/Affect Skin: Normal Color, Warm/Dry Lymphatic: No Adenopathy Results Lab Laboratory Tests 12/23/21 18:40 12/24/21 04:20 12/25/21 03:11 Assessment/Plan Assessment/Plan See free text. Critical Care: Critically Ill Patient ASHWIN MORRIS MD Dec 25, 2021 09:11
--- NOTE | 2021-12-25 15:10 | Physical Therapy Evaluation ---
PT Evaluation-General Medical Diagnosis Admission Date Dec 23, 2021 at 16:58 Medical Diagnosis: post op ex lap for colo-ves, colo-vag fistula Onset Date: Dec 23, 2021 Therapy Diagnosis Therapy Diagnosis: impaired mobility Height/Weight Height (Feet): 5 Height (Inches): 1.00 Weight (Pounds): 228 Weight (Ounces): 0.0 Precautions Precautions/Isolations: Fall Prevention, Standard Precautions Referral Physician: Cindy Reason for Referral: Evaluation/Treatment Medical History Additional Medical History Past Medical History Surgeries: Section, Hysterectomy (1989), Thyroidectomy (2015) Pneumonia Currently Using CPAP: Yes Currently Using BIPAP: No High Cholesterol, Hypertension, Palpitations 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 4-Jvidworqqx-nbriett completes the activity by him/herself with no assistance from a helper. 5-Set-up or Clean-up Assistance-helper sets up or cleans up; patient completes activity. [place] assists only prior to or following the activity. 4-Supervision or Touching Assistance-helper provides verbal cues and/or touching/steadying and/or contact guard assistance as patient completes activity. Assistance may be provided throughout the activity or intermittently. 3-Partial/Moderate Assistance-helper does LESS THAN HALF the effort. [place] lifts, holds or supports trunk or limbs, but provides less than half the effort. 2-Substantial/Maximal Assistance-helper does MORE THAN HALF the effort. [place] lifts or holds trunk or limbs and provides more than half the effort. 0-Qdnrbtwot-wilyca does ALL the effort. Patient does none of the effort to complete the activity. Or, the assistance of 2 or more helpers is required for the patient to complete the activity. If activity was not attempted, code reason: 7-Patient Refused. 9-Not Applicable-not attempted and the patient did not perform the activity before the current illness, exacerbation or injury. 10-Not Attempted due to Environmental Limitations-(lack of equipment, weather restraints, etc.). 88-Not Attempted due to Medical Conditions or Safety Concerns. Bed Mobility: 6 Transfers (B,C,W/C): 6 Gait: 6 Stairs: 6 Indoor Mobility (Ambulation): Independent Stairs: Independent PT Evaluation-Current Subjective Patient in bed pre tx, agrees to PT, has little pain at rest but patient states she has 10/10 pain in her abdomen with activity. Pt/Family Goals to be independent at home Objective Patient Orientation: Person, Place, Situation Attachments: Oxygen, Mejia Catheter, IV ROM/Strength ROM Lower Extremities WNL Strength Lower Extremities grossly 5/5 BLE Sensory Vision: Functional Hearing: Functional Sensation Right Lower Extremit: Intact Sensation Left Lower Extremity: Intact Transfers Roll Left to Right (QC): 3 Sit to Lying (QC): 2 Lying to Sitting/Side of Bed(Q: 3 Sit to Stand (QC): 4 mod assist for supine to sit, max assist for sit to supine, CGA for sit to stand. Patient was able to stand and take a few steps toward the head of the bed before sitting down again, patient states pain is more intense when standing. Balance Sitting Static: Fair Sitting Dynamic: Fair Standing Static: Fair Standing Dynamic: Fair Treatment BLE supine exercises x20 (AP, HS) Assessment/Needs Patient in bed post tx with nurse call, phone, tray, all needs met. Patient asks for pain meds, nurse Mary Lou notified. Patient has impaired mobility, has more intense pain with standing, but was able to take a few steps. Rehab Potential: Fair PT Shaft Repairer Goals [facility] Goals PT Shaft Repairer Goals Time Frame: Jan 01, 2022 Roll Left & Right (QC): 4 Sit to Lying (QC): 4 Lying-Sitting on Side/Bed(QC): 4 Sit to Stand (QC): 4 (SA) Chair/Iwd-eq-Kbjjp Xfer(QC): 4 (SBA) Walk 10 feet (QC): 4 (SBA) Walk 50ft with 2 Turns (QC): 4 (SBA) PT Plan Problem List Problem List: Activity Tolerance, Functional Strength, Safety, Balance, Gait, Transfer, Bed Mobility, ROM Treatment/Plan Treatment Plan: Continue Plan of Care Treatment Plan: Bed Mobility, Education, Functional Activity Donaldo, Functional Strength, Gait, Safety, Therapeutic Exercise, Transfers Treatment Duration: Jan 01, 2022 Frequency: 6 times per week Estimated Hrs Per Day: .25 hour per day Patient and/or Family Agrees t: Yes Safety Risks/Education Patient Education: Gait Training, Transfer Techniques, Correct Positioning, Safety Issues Teaching Recipient: Patient Teaching Methods: Demonstration, Discussion Response to Teaching: Reinforcement Needed Discharge Recommendations Plan Patient will perform bed mobility and transfer training, balance and endurance training, functional strengthening, stair training, gait training, and education, to improve functional mobility and independence at home. Therapy Discharge Recommendati: Scheduled Assistance, Home & Family, Post Acute PT Time/GCodes Time In: 1421 Time Out: 1438 Total Billed Treatment Time: 17 Total Billed Treatment 1 visit JOSEPH MALHOTRA PT Dec 25, 2021 15:10
--- NOTE | 2021-12-25 17:22 | Progress Note - Surgery ---
Subjective Date Seen by a Provider: Dec 25, 2021 Time Seen by a Provider: 08:40 Subjective/Events-last exam Patient feeling better. Her urine has now turned clear. She is not having any significant drainage from her vagina as she was. Patient feeling better. No stool in her colostomy at this time. She denies any new complaints. She denies any nausea vomiting fever sweats chills shortness of breath or chest pain. Focused Exam Lactate Level 12/23/21 18:40: Lactic Acid Level 1.10 Objective Exam Vital Signs Date Time Temp Pulse Resp B/P (MAP) Pulse Ox O2 Delivery O2 Flow Rate FiO2 12/25/21 17:00 60 23 95 Nasal Cannula 1.00 12/25/21 16:08 Nasal Cannula 1.00 12/25/21 16:00 62 8 131/64 96 Nasal Cannula 1.00 12/25/21 15:45 36.0 12/25/21 15:00 58 13 94 Nasal Cannula 1.00 12/25/21 14:00 57 16 96 Nasal Cannula 1.00 12/25/21 13:00 64 12/25/21 13:00 62 23 136/55 95 Nasal Cannula 1.00 12/25/21 12:00 58 14 128/55 97 Nasal Cannula 1.00 12/25/21 12:00 36.3 12/25/21 12:00 Nasal Cannula 1.00 12/25/21 11:00 56 13 95 Nasal Cannula 1.00 12/25/21 10:00 71 157/63 95 Nasal Cannula 1.00 12/25/21 09:00 64 20 125/55 94 Nasal Cannula 1.00 12/25/21 08:00 Nasal Cannula 1.00 12/25/21 08:00 52 17 128/61 97 Nasal Cannula 1.00 12/25/21 07:57 Nasal Cannula 1.00 12/25/21 07:34 35.9 12/25/21 07:00 69 12/25/21 07:00 67 13 125/99 92 Room Air 12/25/21 06:00 68 20 116/83 94 Room Air 12/25/21 06:00 96 Nasal Cannula 2.00 12/25/21 05:47 Room Air 12/25/21 05:15 66 13 96 OxyMask 3.00 12/25/21 05:00 61 9 128/53 97 OxyMask 5.00 12/25/21 04:00 60 8 118/53 96 OxyMask 5.00 12/25/21 03:56 36.3 12/25/21 03:48 96 OxyMask 5.00 12/25/21 03:00 71 9 133/62 96 OxyMask 5.00 12/25/21 02:00 63 20 120/51 96 OxyMask 5.00 12/25/21 01:00 73 12/25/21 01:00 66 13 137/78 96 OxyMask 5.00 12/25/21 00:00 67 10 128/74 95 OxyMask 5.00 12/25/21 00:00 36.2 12/24/21 23:04 96 OxyMask 5.00 12/24/21 23:00 67 8 136/66 94 OxyMask 5.00 12/24/21 22:00 61 9 145/64 96 OxyMask 5.00 12/24/21 21:15 36.2 20 146/63 (90) 95 OxyMask 5 12/24/21 21:15 OxyMask 5 12/24/21 21:10 20 140/63 (88) 95 OxyMask 5 12/24/21 21:09 66 12 146/63 95 OxyMask 10.00 12/24/21 21:00 70 12/24/21 21:00 20 141/63 (89) 96 OxyMask 5 12/24/21 21:00 OxyMask 5 12/24/21 20:50 20 143/63 (89) 96 OxyMask 6 12/24/21 20:45 OxyMask 6 12/24/21 20:40 20 140/56 (84) 96 OxyMask 6 12/24/21 20:40 96 OxyMask 6.00 12/24/21 20:30 18 163/75 (104) 96 OxyMask 6 12/24/21 20:30 OxyMask 6 12/24/21 20:22 36.1 16 173/74 (107) 96 OxyMask 6 12/24/21 20:22 OxyMask 6 12/24/21 18:00 64 17 154/59 95 Nasal Cannula 2.00 I & O 12/25/21 07:00 Intake Total 3200 ml Output Total 3855 ml Balance -655 ml Capillary Refill : Less Than 3 SecondsLess Than 3 Seconds General Appearance: No Apparent Distress, WD/WN, Obese HEENT: PERRL/EOMI, Pharynx Normal Neck: Full Range of Motion, Normal Inspection, Non Tender, Supple Respiratory: Chest Non Tender, No Accessory Muscle Use, No Respiratory Distress Cardiovascular: Regular Rate, Rhythm, No Edema, No JVD, Normal Peripheral Pulses Gastrointestinal: soft, other (Tenderness lower abdomen more midline minimal, colostomy left upper quadrant pink no stool) Extremity: Normal Capillary Refill, Normal Range of Motion, Non Tender, No Calf Tenderness Neurologic/Psychiatric: Alert, Oriented x3, No Motor/Sensory Deficits, Normal Mood/Affect Skin: Normal Color, Warm/Dry Lymphatic: No Adenopathy Results Lab Laboratory Tests 12/24/21 17:37: Glucometer 91 12/25/21 00:11: Glucometer 114H 12/25/21 03:11: White Blood Count 21.1H, Red Blood Count 3.86, Hemoglobin 12.3, Hematocrit 38, Mean Corpuscular Volume 98, Mean Corpuscular Hemoglobin 32, Mean Corpuscular Hemoglobin Concent 32, Red Cell Distribution Width 16.6H, Platelet Count 201, Mean Platelet Volume 10.6, Immature Granulocyte % (Auto) 2, Neutrophils (%) (Auto) 92H, Lymphocytes (%) (Auto) 5L, Monocytes (%) (Auto) 1, Eosinophils (%) (Auto) 0, Basophils (%) (Auto) 0, Neutrophils # (Auto) 19.3H, Lymphocytes # (Auto) 1.0, Monocytes # (Auto) 0.2, Eosinophils # (Auto) 0.0, Basophils # (Auto) 0.1, Immature Granulocyte # (Auto) 0.5H, Sodium Level 140, Potassium Level 4.4, Chloride Level 112H, Carbon Dioxide Level 14L, Anion Gap 14, Blood Urea Nitrogen 18, Creatinine 0.71, Estimat Glomerular Filtration Rate 89, BUN/Creatinine Ratio 25, Glucose Level 126H, Calcium Level 8.0L, Corrected Calcium 8.8, Phosphorus Level 3.1, Magnesium Level 1.9, Total Bilirubin 0.4, Aspartate Amino Transf (AST/SGOT) 21, Alanine Aminotransferase (ALT/SGPT) 16, Alkaline Phosphatase 69, Total Protein 6.0L, Albumin 3.0L 12/25/21 12:12: Glucometer 121H 12/25/21 15:27: Glucometer 114H Microbiology 12/23/21 Blood Culture - Preliminary, Resulted No growth Assessment/Plan Assessment/Plan Assessment/Plan Sepsis Leukocytosis Sigmoid diverticulitis 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 Cholelethiasis Hypertension Diabetes Mellitus Bipolar Mood Disorder Post-Procedural Hypothyroidism Patient awaiting colostomy function. It appears viable. No issues at this time. Pain control. Continue antibiotics. Clinical Quality Measures DVT/VTE Risk/Contraindication: Contraindications-Pharm: Other *list below* Other: PT HAVING VAGINAL AND BLADDER BLEEDING FROM FISTULA ASHLEY RAMSEY DO Dec 25, 2021 17:22
[2021-12-25] MEDS ORDERED: TEMAZEPAM 7.5 MG CAP (RESTORIL) PO SCH (21:00)
[2021-12-25] MEDS ORDERED: PATIENT MAY USE OWN MEDS, ALL MC SCH (21:15)
[2021-12-26] MEDS: inSUlin ASPART (NovoLOG) 1 UNIT/0.01 ML (CHARGE PER UNIT) SQ SCH ×4 (00:06→18:29)
[2021-12-26] MEDS: PIPERACILLIN SODIUM/TAZOBACTAM 4.5 GM in NS (IVPB) 100 ML IV SCH ×4 (00:18→23:58)
[2021-12-26] MEDS: NS IV 1000 ML 1,000 ML IV SCH ×4 (01:37→20:52)
[2021-12-26] MEDS: fentaNYL INJ 100 MCG/2 ML AMP IVP PRN (01:37)
[2021-12-26 05:55] LABS: BASOPHILS # (AUTO) 0.1 10^3/uL (0.0-0.1); BASOPHILS % (AUTO) 0 % (0-10); EOSINOPHILS # (AUTO) 0.1 10^3/uL (0.0-0.3); EOSINOPHILS % (AUTO) 0 % (0-10); HEMATOCRIT 35 % (35-52); HEMOGLOBIN 11.8 g/dL (11.5-16.0); LYMPHOCYTES # (AUTO) 1.9 10^3/uL (1.0-4.0); LYMPHOCYTES % (AUTO) 9 % (12-44); MEAN CORPUSCULAR HEMOGLOBIN 32 pg (25-34); MEAN CORPUSCULAR HGB CONC 34 g/dL (32-36); MEAN CORPUSCULAR VOLUME 96 fL (80-99); MEAN PLATELET VOLUME 11.1 fL (9.0-12.2); MONOCYTES # (AUTO) 1.1 10^3/uL (0.0-1.0); MONOCYTES % (AUTO) 5 % (0-12); NEUTROPHILS # (AUTO) 17.2 10^3/uL (1.8-7.8); NEUTROPHILS % (AUTO) 83 % (42-75); PLATELET COUNT 224 10^3/uL (130-400); WHITE BLOOD COUNT 20.7 10^3/uL (4.3-11.0)
[2021-12-26 06:13] LABS: ALBUMIN 2.8 GM/DL (3.2-4.5); POTASSIUM 3.5 MMOL/L (3.6-5.0)
[2021-12-26 06:14] LABS: CALCIUM 7.8 MG/DL (8.5-10.1)
[2021-12-26 06:16] LABS: TOTAL PROTEIN 5.4 GM/DL (6.4-8.2)
[2021-12-26 06:17] LABS: BILIRUBIN,TOTAL 0.3 MG/DL (0.1-1.0)
[2021-12-26 06:19] LABS: CREATININE SERUM 0.66 MG/DL (0.60-1.30); PHOSPHORUS 1.4 MG/DL (2.3-4.7)
[2021-12-26 06:22] LABS: MAGNESIUM 2.1 MG/DL (1.6-2.4)
[2021-12-26] MEDS: POTASSIUM CL 10MEQ/50ML IVPB 50 ML IV SCH (06:24)
[2021-12-26] MEDS: MAGNESIUM 1 GM/100 ML IVPB 100 ML IV SCH (06:25)
[2021-12-26] MEDS: KCL 20 MEQ TAB (K-DUR) PO SCH (06:25)
[2021-12-26] MEDS ORDERED: POTASSIUM CL 10MEQ/50ML IVPB 50 ML IV ONE ×2 (07:00→08:00)
[2021-12-26] MEDS: PANTOPRAZOLE 40 MG (PROTONIX) VIAL IV SCH (08:20)
[2021-12-26 08:30] VITALS: BP 162/71
--- NOTE | 2021-12-26 08:38 | Progress Note ---
Subjective Subjective Date Seen by Provider: Dec 26, 2021 Time Seen by Provider: 08:38 Pt reports that she is feeling a little bit better today - she still has abdominal pain and discomfort in her vaginal tissue. She denies dizziness, chest pain, shortness of breath. She thinks that the fentanyl is making her too groggy and not working well on her pain. Review of Systems General: No Chills, No Fatigue, No Malaise HEENT: No Head Aches Pulmonary: No Dyspnea, No Cough Cardiovascular: No: Chest Pain, Palpitations Gastrointestinal: Abdominal Pain (BUT IMPROVED); No: Nausea, Vomiting Genitourinary: Other (GLORIA IN PLACE) Musculoskeletal: back pain Neurological: No: Weakness, Confusion All Other Systems Reviewed All Other Systems Reviewed: Yes Objective Exam Vital Signs Vital Signs Date Time Temp Pulse Resp B/P (MAP) Pulse Ox O2 Delivery O2 Flow Rate FiO2 12/26/21 07:50 36.4 74 18 162/71 95 Nasal Cannula 1.00 12/26/21 04:25 36.1 67 16 150/67 95 Nasal Cannula 1.00 12/26/21 00:00 36.6 73 18 141/64 95 Nasal Cannula 1.00 12/25/21 19:25 Nasal Cannula 1.00 12/25/21 19:00 37.1 64 20 134/71 96 Nasal Cannula 1.00 12/25/21 17:00 60 23 95 Nasal Cannula 1.00 12/25/21 16:08 Nasal Cannula 1.00 12/25/21 16:00 62 8 131/64 96 Nasal Cannula 1.00 12/25/21 16:00 Nasal Cannula 1.00 12/25/21 15:45 36.0 12/25/21 15:00 58 13 94 Nasal Cannula 1.00 12/25/21 14:00 57 16 96 Nasal Cannula 1.00 12/25/21 13:00 64 12/25/21 13:00 62 23 136/55 95 Nasal Cannula 1.00 12/25/21 12:00 58 14 128/55 97 Nasal Cannula 1.00 12/25/21 12:00 36.3 12/25/21 12:00 Nasal Cannula 1.00 12/25/21 11:00 56 13 95 Nasal Cannula 1.00 12/25/21 10:00 71 157/63 95 Nasal Cannula 1.00 12/25/21 09:00 64 20 125/55 94 Nasal Cannula 1.00 I & O 12/26/21 07:00 Intake Total 2200 ml Output Total 1965 ml Balance 235 ml General Appearance: No Apparent Distress, WD/WN, Obese HEENT: PERRL/EOMI, Pharynx Normal Neck: Full Range of Motion, Normal Inspection, Non Tender, Supple Respiratory: Chest Non Tender, No Accessory Muscle Use, No Respiratory Distress Cardiovascular: Regular Rate, Rhythm, No Edema, No JVD, Normal Peripheral Pulses Gastrointestinal: Other (DECREASED BUT PRESENT BOWEL SOUNDS, SURGICAL SITE AT UMBILICUS WITH MINIMAL BLOOD ON BANDAGE, AND OSTOMY SITE IS SHOWING SLIGHTLY BLOODY FLUID OUTPUT, NO BOWEL IN BAG, STUMP IS HEALTHY APPEARING) Genital/Rectal: Other ([place] DISCHARGE FROM VAGINAL REGION WITH BLOOD ON GLOVE, NO OPEN WOUND ABLE TO BE APPRECIATED ON LIMITED EXAM) Extremity: Normal Capillary Refill, Normal Range of Motion, Non Tender, No Calf Tenderness Neurologic/Psychiatric: Alert, Oriented x3, No Motor/Sensory Deficits, Normal Mood/Affect Skin: Normal Color, Warm/Dry Lymphatic: No Adenopathy Results Lab Laboratory Tests 12/25/21 12:12: Glucometer 121H 12/25/21 15:27: Glucometer 114H 12/25/21 17:34: Glucometer 107 12/26/21 00:06: Glucometer 116H 12/26/21 05:27: White Blood Count 20.7H, Red Blood Count 3.67L, Hemoglobin 11.8, Hematocrit 35, Mean Corpuscular Volume 96, Mean Corpuscular Hemoglobin 32, Mean Corpuscular Hemoglobin Concent 34, Red Cell Distribution Width 16.8H, Platelet Count 224, Mean Platelet Volume 11.1, Immature Granulocyte % (Auto) 2, Neutrophils (%) (Auto) 83H, Lymphocytes (%) (Auto) 9L, Monocytes (%) (Auto) 5, Eosinophils (%) (Auto) 0, Basophils (%) (Auto) 0, Neutrophils # (Auto) 17.2H, Lymphocytes # (Auto) 1.9, Monocytes # (Auto) 1.1H, Eosinophils # (Auto) 0.1, Basophils # (Auto) 0.1, Immature Granulocyte # (Auto) 0.3H, Sodium Level 141, Potassium Level 3.5L, Chloride Level 114H, Carbon Dioxide Level 17L, Anion Gap 10, Blood Urea Nitrogen 16, Creatinine 0.66, Estimat Glomerular Filtration Rate 91, BUN/Creatinine Ratio 24, Glucose Level 107H, Calcium Level 7.8L, Corrected Calcium 8.8, Phosphorus Level 1.4L, Magnesium Level 2.1, Total Bilirubin 0.3, Aspartate Amino Transf (AST/SGOT) 58H, Alanine Aminotransferase (ALT/SGPT) 21, Alkaline Phosphatase 60, Total Protein 5.4L, Albumin 2.8L 12/26/21 06:19: Glucometer 107 Microbiology 12/23/21 Blood Culture - Preliminary, Resulted No growth Assessment/Plan Assessment/Plan Admission Dx Sepsis Leukocytosis Sigmoid diverticulitis 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 - Consult to Dr. Rai surgery with ostomy and drain placed on 12/24/21 - continue with management per surgery - continue with slow introduction of fluids per surgery - ice chips for now. Cholelethiasis - not current issue - will address at a later time or when/if symptoms arise. Hypertension - holding home meds for now, will treat with IV meds if needed. Diabetes Mellitus - holding home meds for now, will treat with insulin if needed. - ICU protocol for diabetes/fsbs checks/insulin Bipolar Mood Disorder - restart with sips of water Post-Procedural Hypothyroidism - oral synthroid restarted. 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
[2021-12-26] MEDS ORDERED: POTASSIUM PHOSPHATE INJ 15 MM in NS (IVPB) 250 ML IV ONE ×2 (08:45→11:00)
--- NOTE | 2021-12-26 10:04 | Physical Therapy Daily Note ---
PT Daily Note-Current Subjective Patient agrees to PT. Pain Numeric Pain Scale: 5-Moderate Pain Location: Lower Location Body Site: Abdomen Pain Description: Pressure, Sharp Mental Status Patient Orientation: Normal For Age Attachments: Oxygen, IV Transfers SCALE: Activities may be completed with or without assistive devices. 1-Jjaytnuvuv-cakxhic completes the activity by him/herself with no assistance from a helper. 5-Set-up or Clean-up Assistance-helper sets up or cleans up; patient completes activity. [place] assists only prior to or following the activity. 4-Supervision or Touching Assistance-helper provides verbal cues and/or touchi ng/steadying and/or contact guard assistance as patient completes activity. Assistance may be provided throughout the activity or intermittently. 3-Partial/Moderate Assistance-helper does LESS THAN HALF the effort. [place] lifts, holds or supports trunk or limbs, but provides less than half the effort. 2-Substantial/Maximal Assistance-helper does MORE THAN HALF the effort. [place] lifts or holds trunk or limbs and provides more than half the effort. 1-Gzdgtlmwp-khwtif does ALL the effort. Patient does none of the effort to complete the activity. Or, the assistance of 2 or more helpers is required for the patient to complete the activity. If activity was not attempted, code reason: 7-Patient Refused. 9-Not Applicable-not attempted and the patient did not perform the activity before the current illness, exacerbation or injury. 10-Not Attempted due to Environmental Limitations-(lack of equipment, weather restraints, etc.). 88-Not Attempted due to Medical Conditions or Safety Concerns. Lying to Sitting/Side of Bed(Q: 3 Sit to Stand (QC): 4 Chair/Xyh-ez-Otzxc Xfer(QC): 4 Patient requires time to complete bed mobility due to abdominal discomfort Gait Training Distance: 300' Walk 10 feet (QC): 4 Walk 50 ft with 2 Turns(QC): 4 Walk 150 ft (QC): 4 Gait Assistive Device: FWW very slow, steady gait sequence with no deviation Assessment Patient requires time to complete all functional tasks and requires encouragement to sit in recliner. Patient continues to c/o discomfort in vaginal region. Increase activity as tolerated by patient. PT Machine Feeder Goals Alf Goals PT Alf Goals Time Frame: Jan 01, 2022 Roll Left & Right (QC): 4 Sit to Lying (QC): 4 Lying-Sitting on Side/Bed(QC): 4 Sit to Stand (QC): 4 (SA) Chair/Bul-ci-Aavin Xfer(QC): 4 (SBA) Walk 10 feet (QC): 4 (SBA) Walk 50ft with 2 Turns (QC): 4 (SBA) PT Plan Treatment/Plan Treatment Plan: Continue Plan of Care Treatment Plan: Bed Mobility, Education, Functional Activity Donaldo, Functional Strength, Gait, Safety, Therapeutic Exercise, Transfers Treatment Duration: Jan 01, 2022 Frequency: 6 times per week Estimated Hrs Per Day: .25 hour per day Patient and/or Family Agrees t: Yes Time/GCodes Time In: 852 Time Out: 915 Total Billed Treatment Time: 23 Total Billed Treatment 1 visit FA x 2 23 min BHARATHI GOMEZ PT Dec 26, 2021 10:04
[2021-12-26] MEDS: morphine INJ 4 MG/ML 1 ML (VIAL/SYRINGE) IVP PRN ×2 (11:04→16:55)
[2021-12-26 11:39] VITALS: BP 145/65
[2021-12-26 16:00] VITALS: BP 141/75
[2021-12-26 20:00] VITALS: BP 143/75
--- NOTE | 2021-12-26 20:29 | Progress Note - Surgery ---
Subjective Date Seen by a Provider: Dec 26, 2021 Time Seen by a Provider: 12:45 Subjective/Events-last exam Patient states that she is doing okay. She still having less pain than what she was. She is having some brownish colored urine but she does not have any drainage from the vagina. Patient overall feels that she is still improving. She has no new complaints. She denies any nausea vomiting fever sweats chills shortness of breath or chest pain at this time. Loop colostomy without any difficulties not quite functioning yet. Objective Exam Vital Signs Date Time Temp Pulse Resp B/P (MAP) Pulse Ox O2 Delivery O2 Flow Rate FiO2 12/26/21 20:00 36.2 71 20 143/75 (97) 94 Nasal Cannula 1.00 12/26/21 16:00 36.3 71 20 141/75 (97) 95 Nasal Cannula 1.00 12/26/21 11:39 36.5 74 18 145/65 (91) 95 Nasal Cannula 1.00 12/26/21 09:47 Nasal Cannula 1.00 12/26/21 08:30 36.4 74 18 162/71 (101) 95 Nasal Cannula 1.00 12/26/21 08:00 Nasal Cannula 1.00 12/26/21 07:50 36.4 74 18 162/71 95 Nasal Cannula 1.00 12/26/21 04:25 36.1 67 16 150/67 95 Nasal Cannula 1.00 12/26/21 00:00 36.6 73 18 141/64 95 Nasal Cannula 1.00 I & O 12/26/21 07:00 Intake Total 2200 ml Output Total 1965 ml Balance 235 ml Capillary Refill : Less Than 3 SecondsLess Than 3 Seconds General Appearance: No Apparent Distress, WD/WN, Obese HEENT: PERRL/EOMI, Pharynx Normal Neck: Full Range of Motion, Normal Inspection, Non Tender, Supple Respiratory: Chest Non Tender, No Accessory Muscle Use, No Respiratory Distress Cardiovascular: Regular Rate, Rhythm, No Edema, No JVD, Normal Peripheral Pulses Gastrointestinal: soft, other (Tenderness lower abdomen more midline minimal, colostomy left upper quadrant pink no stool) Extremity: Normal Capillary Refill, Normal Range of Motion, Non Tender, No Calf Tenderness Neurologic/Psychiatric: Alert, Oriented x3, No Motor/Sensory Deficits, Normal Mood/Affect Skin: Normal Color, Warm/Dry Lymphatic: No Adenopathy Results Lab Laboratory Tests 12/26/21 00:06: Glucometer 116H 12/26/21 05:27: White Blood Count 20.7H, Red Blood Count 3.67L, Hemoglobin 11.8, Hematocrit 35, Mean Corpuscular Volume 96, Mean Corpuscular Hemoglobin 32, Mean Corpuscular Hemoglobin Concent 34, Red Cell Distribution Width 16.8H, Platelet Count 224, Mean Platelet Volume 11.1, Immature Granulocyte % (Auto) 2, Neutrophils (%) (Auto) 83H, Lymphocytes (%) (Auto) 9L, Monocytes (%) (Auto) 5, Eosinophils (%) (Auto) 0, Basophils (%) (Auto) 0, Neutrophils # (Auto) 17.2H, Lymphocytes # (Auto) 1.9, Monocytes # (Auto) 1.1H, Eosinophils # (Auto) 0.1, Basophils # (Auto) 0.1, Immature Granulocyte # (Auto) 0.3H, Sodium Level 141, Potassium Level 3.5L, Chloride Level 114H, Carbon Dioxide Level 17L, Anion Gap 10, Blood Urea Nitrogen 16, Creatinine 0.66, Estimat Glomerular Filtration Rate 91, BUN/Creatinine Ratio 24, Glucose Level 107H, Calcium Level 7.8L, Corrected Calcium 8.8, Phosphorus Level 1.4L, Magnesium Level 2.1, Total Bilirubin 0.3, Aspartate Amino Transf (AST/SGOT) 58H, Alanine Aminotransferase (ALT/SGPT) 21, Alkaline Phosphatase 60, Total Protein 5.4L, Albumin 2.8L 12/26/21 06:19: Glucometer 107 12/26/21 11:29: Glucometer 119H 12/26/21 17:06: Glucometer 109 Microbiology 12/23/21 Blood Culture - Preliminary, Resulted No growth Assessment/Plan Assessment/Plan Assessment/Plan Sepsis Leukocytosis Sigmoid diverticulitis 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 Cholelethiasis Hypertension Diabetes Mellitus Bipolar Mood Disorder Post-Procedural Hypothyroidism Patient awaiting colostomy function. It appears viable. No issues at this time. Pain control. Continue antibiotics. Clinical Quality Measures DVT/VTE Risk/Contraindication: Contraindications-Pharm: Other *list below* Other: PT HAVING VAGINAL AND BLADDER BLEEDING FROM FISTULA ASHLEY RAMSEY DO Dec 26, 2021:29
[2021-12-26] MEDS ORDERED: TEMAZEPAM 15 MG (RESTORIL) CAP PO SCH (21:00)
[2021-12-27] MEDS: inSUlin ASPART (NovoLOG) 1 UNIT/0.01 ML (CHARGE PER UNIT) SQ SCH ×2 (00:09→05:23)
[2021-12-27 00:19] VITALS: BP 174/79
[2021-12-27] MEDS: morphine INJ 4 MG/ML 1 ML (VIAL/SYRINGE) IVP PRN ×2 (02:00→05:52)
[2021-12-27] MEDS: NS IV 1000 ML 1,000 ML IV SCH ×2 (03:30→09:38)
[2021-12-27 04:07] VITALS: BP 163/74
[2021-12-27 06:07] LABS: BASOPHILS # (AUTO) 0.1 10^3/uL (0.0-0.1); BASOPHILS % (AUTO) 0 % (0-10); EOSINOPHILS # (AUTO) 0.3 10^3/uL (0.0-0.3); EOSINOPHILS % (AUTO) 2 % (0-10); HEMATOCRIT 38 % (35-52); HEMOGLOBIN 12.3 g/dL (11.5-16.0); LYMPHOCYTES # (AUTO) 1.7 10^3/uL (1.0-4.0); LYMPHOCYTES % (AUTO) 11 % (12-44); MEAN CORPUSCULAR HEMOGLOBIN 32 pg (25-34); MEAN CORPUSCULAR HGB CONC 33 g/dL (32-36); MEAN CORPUSCULAR VOLUME 96 fL (80-99); MEAN PLATELET VOLUME 11.3 fL (9.0-12.2); MONOCYTES # (AUTO) 1.1 10^3/uL (0.0-1.0); MONOCYTES % (AUTO) 7 % (0-12); NEUTROPHILS # (AUTO) 12.1 10^3/uL (1.8-7.8); NEUTROPHILS % (AUTO) 77 % (42-75); PLATELET COUNT 203 10^3/uL (130-400); WHITE BLOOD COUNT 15.7 10^3/uL (4.3-11.0)
[2021-12-27 06:29] LABS: ALBUMIN 2.8 GM/DL (3.2-4.5); POTASSIUM 3.5 MMOL/L (3.6-5.0)
[2021-12-27 06:30] LABS: CALCIUM 7.9 MG/DL (8.5-10.1)
[2021-12-27] MEDS ORDERED: [UNRECOGNIZED DRUG - REMARK] PO SCH (06:30)
[2021-12-27 06:31] LABS: TOTAL PROTEIN 5.5 GM/DL (6.4-8.2)
[2021-12-27 06:33] LABS: BILIRUBIN,TOTAL 0.8 MG/DL (0.1-1.0)
[2021-12-27 06:34] LABS: PHOSPHORUS 1.7 MG/DL (2.3-4.7)
[2021-12-27 06:35] LABS: CREATININE SERUM 0.59 MG/DL (0.60-1.30)
[2021-12-27] MEDS: KCL 20 MEQ TAB (K-DUR) PO SCH (06:36)
[2021-12-27] MEDS: POTASSIUM CL 10MEQ/50ML IVPB 50 ML IV SCH ×3 (06:37→07:56)
[2021-12-27 06:38] LABS: MAGNESIUM 1.9 MG/DL (1.6-2.4)
[2021-12-27] MEDS: MAGNESIUM 1 GM/100 ML IVPB 100 ML IV SCH (06:43)
[2021-12-27] MEDS ORDERED: PATIENT MAY USE OWN MED,SINGLE MED PO SCH (07:00)
[2021-12-27 07:43] VITALS: BP 149/70
[2021-12-27] MEDS: PANTOPRAZOLE 40 MG (PROTONIX) VIAL IV SCH (08:00)
[2021-12-27] MEDS: PIPERACILLIN SODIUM/TAZOBACTAM 4.5 GM in NS (IVPB) 100 ML IV SCH (08:00)
--- NOTE | 2021-12-27 08:14 | Progress Note ---
Subjective Review of Systems General: No Chills, No Fatigue, No Malaise HEENT: No Head Aches Pulmonary: No Dyspnea, No Cough Cardiovascular: No: Chest Pain, Palpitations Gastrointestinal: Abdominal Pain (BUT IMPROVED); No: Nausea, Vomiting Genitourinary: Other (GLORIA IN PLACE) Musculoskeletal: back pain Neurological: No: Weakness, Confusion All Other Systems Reviewed All Other Systems Reviewed: Yes Objective Exam Vital Signs Vital Signs Date Time Temp Pulse Resp B/P (MAP) Pulse Ox O2 Delivery O2 Flow Rate FiO2 12/27/21 07:43 36.7 80 17 149/70 (96) 94 Nasal Cannula 1.00 12/27/21 04:07 35.9 88 18 163/74 (103) 92 NIV CPAP 12/27/21 00:19 37.4 85 20 174/79 (110) 92 NIV CPAP 12/26/21 20:00 36.2 71 20 143/75 (97) 94 Nasal Cannula 1.00 12/26/21 20:00 Nasal Cannula 1.00 12/26/21 16:00 36.3 71 20 141/75 (97) 95 Nasal Cannula 1.00 12/26/21 11:39 36.5 74 18 145/65 (91) 95 Nasal Cannula 1.00 12/26/21 09:47 Nasal Cannula 1.00 12/26/21 08:30 36.4 74 18 162/71 (101) 95 Nasal Cannula 1.00 I & O 12/27/21 07:00 Intake Total 1455 ml Output Total 4460 ml Balance -3005 ml General Appearance: No Apparent Distress, WD/WN, Obese HEENT: PERRL/EOMI, Pharynx Normal Neck: Full Range of Motion, Normal Inspection, Non Tender, Supple Respiratory: Chest Non Tender, No Accessory Muscle Use, No Respiratory Distress Cardiovascular: Regular Rate, Rhythm, No Edema, No JVD, Normal Peripheral Pulses Gastrointestinal: Other (DECREASED BUT PRESENT BOWEL SOUNDS, SURGICAL SITE AT UMBILICUS WITH MINIMAL BLOOD ON BANDAGE, AND OSTOMY SITE IS SHOWING SLIGHTLY BLOODY FLUID OUTPUT, NO BOWEL IN BAG, STUMP IS HEALTHY APPEARING) Genital/Rectal: Other (BROWNISH DISCHARGE FROM VAGINAL REGION WITH BLOOD ON GLOVE, NO OPEN WOUND ABLE TO BE APPRECIATED ON LIMITED EXAM) Extremity: Normal Capillary Refill, Normal Range of Motion, Non Tender, No Calf Tenderness Neurologic/Psychiatric: Alert, Oriented x3, No Motor/Sensory Deficits, Normal Mood/Affect Skin: Normal Color, Warm/Dry Lymphatic: No Adenopathy Results Lab Laboratory Tests 12/26/21 11:29: Glucometer 119H 12/26/21 17:06: Glucometer 109 12/27/21 00:02: Glucometer 104 12/27/21 05:17: Glucometer 105 12/27/21 05:52: White Blood Count 15.7H, Red Blood Count 3.91, Hemoglobin 12.3, Hematocrit 38, Mean Corpuscular Volume 96, Mean Corpuscular Hemoglobin 32, Mean Corpuscular Hemoglobin Concent 33, Red Cell Distribution Width 16.9H, Platelet Count 203, Mean Platelet Volume 11.3, Immature Granulocyte % (Auto) 3, Neutrophils (%) (Auto) 77H, Lymphocytes (%) (Auto) 11L, Monocytes (%) (Auto) 7, Eosinophils (%) (Auto) 2, Basophils (%) (Auto) 0, Neutrophils # (Auto) 12.1H, Lymphocytes # (Auto) 1.7, Monocytes # (Auto) 1.1H, Eosinophils # (Auto) 0.3, Basophils # (Auto) 0.1, Immature Granulocyte # (Auto) 0.4H, Sodium Level 139, Potassium Level 3.5L, Chloride Level 110H, Carbon Dioxide Level 16L, Anion Gap 13, Blood Urea Nitrogen 8, Creatinine 0.59L, Estimat Glomerular Filtration Rate 94, BUN/Creatinine Ratio 14, Glucose Level 99, Calcium Level 7.9L, Corrected Calcium 8.9, Phosphorus Level 1.7L, Magnesium Level 1.9, Total Bilirubin 0.8, Aspartate Amino Transf (AST/SGOT) 56H, Alanine Aminotransferase (ALT/SGPT) 23, Alkaline Phosphatase 65, Total Protein 5.5L, Albumin 2.8L Microbiology 12/23/21 Blood Culture - Preliminary, Resulted No growth Assessment/Plan Assessment/Plan Admission Dx Sepsis Leukocytosis Sigmoid diverticulitis 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 - Consult to Dr. Rai surgery with ostomy and drain placed on 12/24/21 - continue with management per surgery - continue with slow introduction of fluids per surgery - ice chips for now. Cholelethiasis - not current issue - will address at a later time or when/if symptoms arise. Hypertension - holding home meds for now, will treat with IV meds if needed. Diabetes Mellitus - holding home meds for now, will treat with insulin if needed. - ICU protocol for diabetes/fsbs checks/insulin Bipolar Mood Disorder - restart with sips of water Post-Procedural Hypothyroidism - oral synthroid restarted. 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
--- NOTE | 2021-12-27 08:56 | OPERATIVE REPORT ---
DATE OF SERVICE: 12/24/2021 PREOPERATIVE DIAGNOSIS: Colovaginal and colovesicular fistula. POSTOPERATIVE DIAGNOSIS: Colovaginal and colovesicular fistula. PROCEDURE: Diagnostic laparoscopy with diverting loop colostomy and placement. SURGEON: Ashley Rai DO ANESTHESIA: General. ESTIMATED BLOOD LOSS: Minimal. COMPLICATIONS: None. INDICATIONS: The patient is a 76-year-old female who was found to have a colovaginal and colovesicular fistula. She has had still a fair amount draining from the vagina and from her Mejia catheter. She understands risks and benefits of procedure and wishes to proceed. Consent was signed in the chart. DESCRIPTION OF PROCEDURE: The patient was taken to the operating suite, was prepped and draped in sterile fashion. Surgical pause was performed. Local anesthetic was infiltrated just above the umbilicus. Cautery was used to dissect down the fascia, which was scored, and the abdomen was then entered and 0 Vicryl was placed in a [id number] fashion for closure at the end of the case. A 12 mm hurt trocar was inserted and pneumoperitoneum was achieved. Scope was inserted under direct visualization of the laparoscope, a 5 mm trocar was placed in the right lower quadrant and a 5 mm trocar was placed in the left lower quadrant. The abdomen was inspected. Small bowel was down the pelvis, which was then brought out. Certainly, some of that was slightly adherent down to the sigmoid area and this was all matted down towards the bladder was unable to be visualized. The patient was placed in steep Trendelenburg position, still unable to visualize. There was a small amount of light murky fluid present down in the pelvis. At this time, the omentum was then lifted. The transverse colon was easily visualized. The omentum was then started to be taken off of the transverse colon using LigaSure. Once the portion of this was dissected, an incision was made in the left upper quadrant down to the muscle, which was then divided bluntly, and the abdomen was entered. [place] was used to grab the transverse colon and bringing up the transverse colon and then dissected around and a loop colostomy bridge was then inserted. This bridge was then sewn into place using 3-0 nylon sutures in four locations. The colostomy was then matured with 3-0 Vicryl suture circumferentially. Before maturing the colostomy, a 19 Lemuel drain was then placed down in the pelvis area and brought out through the right lower quadrant trocar site. The trocars were removed. The drain was secured, and the incisions were closed with reji after the trocars were removed and the 12 mm fascial defect was closed using the previously placed Vicryl suture. Colostomy appliance was then cut to size and the patient tolerated procedure well without any complications. She was taken to recovery room in stable condition. Job ID: [id number] DocumentID: [id number] Dictated Date: 12/26/2021 21:05:30 Data Entry Manager Date: 12/27/2021 06:46:55 Dictated By: ASHLEY RAI DO
[2021-12-27] MEDS ORDERED: POTASSIUM PHOSPHATE INJ 15 MM in NS (IVPB) 250 ML IV NR (09:00)
[2021-12-27] MEDS ORDERED: POTASSIUM CL 10MEQ/50ML IVPB 50 ML IV SCH (12:00)
== END 2021-12-27 10:38 | disposition swing bed (61) | DRG 854 ==
LOC: ICU 16:58 → 4TH 12-25 18:30
PROVIDERS: ADMIT Family Medicine; ATTEND Family Medicine
PROC: 0W9G40Z Drainage of Peritoneal Cavity with Drainage Device, Percutaneous Endoscopic Approach (ICD-10-PCS; 2021-12-24)
PROC: 0D1L4Z4 Bypass Transverse Colon to Cutaneous, Percutaneous Endoscopic Approach (ICD-10-PCS; principal; 2021-12-24 18:18)
PROC: 5A09357 Assistance with Respiratory Ventilation, Less than 24 Consecutive Hours, Continuous Positive Airway Pressure (ICD-10-PCS; 2021-12-27)
DX: A41.9 Sepsis, unspecified organism (principal); K57.32 Diverticulitis of large intestine without perforation or abscess without bleeding; N32.1 Vesicointestinal fistula; D72.829 Elevated white blood cell count, unspecified; K80.20 Calculus of gallbladder without cholecystitis without obstruction; I10 Essential (primary) hypertension; E11.9 Type 2 diabetes mellitus without complications; F31.9 Bipolar disorder, unspecified; E89.0 Postprocedural hypothyroidism; Z79.82 Long term (current) use of aspirin; Z79.899 Other long term (current) drug therapy; E78.00 Pure hypercholesterolemia, unspecified; M19.90 Unspecified osteoarthritis, unspecified site; M41.9 Scoliosis, unspecified; G89.29 Other chronic pain; M54.9 Dorsalgia, unspecified
CPT/HCPCS: 36415; 71045; 80053; 82947; 83605; 83735; 84100; 85007; 85025; 85027; 87040

== ENCOUNTER → 2021-12-23 | Outpatient (CLI) | payer MEDICARE, OTHER ==
[~2021-12-23] MED LIST changes: +CATHETER FLUSH 10 ML SYR IV PRN; +IOHEXOL 350 MG/ML 100 ML (OMNIPAQUE 350) VIAL IV ONE; +NABU-95 PO; -NABU750T PO; +NS 100 ML (IVPB) BAG IV ONE; -PHEN15CA PO; +PHEN15CA6 PO; -PHEN37.53 PO; +PHEN37.58 PO; -POTA99TA21 PO; +POTA99TA26 PO; +ZINC50TA11 PO; -ZINC50TA4 PO
[2021-12-23 11:38] LABS: HEMATOCRIT 43 % (35-52); HEMOGLOBIN 14.4 g/dL (11.5-16.0); MEAN CORPUSCULAR HEMOGLOBIN 32 pg (25-34); MEAN CORPUSCULAR HGB CONC 34 g/dL (32-36); MEAN CORPUSCULAR VOLUME 95 fL (80-99); MEAN PLATELET VOLUME 10.8 fL (9.0-12.2); PLATELET COUNT 253 10^3/uL (130-400); WHITE BLOOD COUNT 29.8 10^3/uL (4.3-11.0)
[2021-12-23 12:03] LABS: ALBUMIN 4.1 GM/DL (3.2-4.5); BILIRUBIN,TOTAL 0.6 MG/DL (0.1-1.0); CALCIUM 10.7 MG/DL (8.5-10.1); CREATININE SERUM 1.07 MG/DL (0.60-1.30); POTASSIUM 4.7 MMOL/L (3.6-5.0); TOTAL PROTEIN 8.1 GM/DL (6.4-8.2)
--- NOTE | 2021-12-23 14:27 | Diagnostic Imaging Report ---
PROCEDURE: CT abdomen and pelvis with contrast. TECHNIQUE: Multiple contiguous axial images were obtained through the abdomen and pelvis after administration of intravenous contrast. Auto Exposure Controls were utilized during the CT exam to meet ALARA standards for radiation dose reduction. All CT scans use one or more of the following dose optimizing techniques: Automated exposure control, MA and/or KvP adjustment based on patient size and exam type or iterative reconstruction. INDICATION: Vaginal discharge, pain, and bloating. FINDINGS: There are findings of sigmoid diverticulitis where there is segmental bowel wall thickening, perisigmoidal stranding and edema, and regional diverticula. Interposed between the sigmoid and the vaginal cuff is an extraluminal complex gas debris collection measuring 3.6 x 2.5 cm. Given the history, it is a chronic abscess, and its fistulization to the vagina is suspected. The adjacent urinary bladder is irregularly thickened, and its lumen is gas containing as well. Fistula to the urinary bladder is suspected. No drainable fluid collection itself is found. There is no resultant bowel obstruction. There is no free air. There are gallstones present, but no secondary features of cholecystitis. There is duodenal diverticulosis without its inflammation or obstruction. Spleen, adrenals, pancreas, and kidneys appeared normal. There is no hydroureteronephrosis. IMPRESSION: 1. Sigmoid diverticulitis with a suspicion for fistulization to the vaginal cuff as well as urinary bladder. There is an extraluminal gas debris collection in the midline, inaccessible to percutaneous drainage and likely without a substantial drainable fluid component. No resultant bowel obstruction. No hydroureteronephrosis. 2. Number next cholelithiasis without features suggestive of cholecystitis. 3. While diverticulitis of the sigmoid is presumed, at some point colonoscopy or fluoroscopic enema would be indicated to exclude underlying neoplasm. Dictated by: Dictated on workstation # [id number]
== END ==
LOC: RAD 12:15
PROVIDERS: ATTEND Nurse Practitioner Family
DX: N93.9 Abnormal uterine and vaginal bleeding, unspecified (principal); K57.92 Diverticulitis of intestine, part unspecified, without perforation or abscess without bleeding; K80.20 Calculus of gallbladder without cholecystitis without obstruction
CPT/HCPCS: 36415; 74177; 80053; 85027

== ENCOUNTER 2021-12-27 11:09 | Inpatient (IN) | payer MEDICARE, OTHER ==
[~2021-12-27] VITALS: Ht 157 cm; Wt 104.2 kg
[~2021-12-27 11:09] MED LIST changes: +CATHETER FLUSH 10 ML SYR IVP PRN; +ONDANSETRON 4 MG/2 ML (SDV) Z0FRAN IVP PRN; +PATIENT MAY USE OWN MEDS, ALL MC SCH; +POTASSIUM CL 10MEQ/50ML IVPB 50 ML IV SCH
--- NOTE | 2021-12-27 11:31 | Physical Therapy Evaluation ---
PT Evaluation-General Medical Diagnosis Admission Date Dec 27, 2021 at 11:09 Medical Diagnosis: post op ex lap for colo-ves, colo-vag fistula Onset Date: Dec 23, 2021 Therapy Diagnosis Therapy Diagnosis: debility/weakness Height/Weight Height (Feet): 5 Height (Inches): 1.00 Weight (Pounds): 228 Weight (Ounces): 0.0 Precautions Precautions/Isolations: Standard Precautions Referral Physician: Cindy Reason for Referral: Evaluation/Treatment Medical History Pertinent Medical History: DM, HTN, Hypothroidism Current History SWB status for antibiotics and therapy Reviewed History: Yes Social History Home: Single Level Current Living Status: Spouse Entry Into Home: Stairs With Railing PT Steps Into Home: 4 Prior Prior Level of Function SCALE: Activities may be completed with or without assistive devices. 9-Qxvxzgjzas-ofdqdke completes the activity by him/herself with no assistance from a helper. 5-Set-up or Clean-up Assistance-helper sets up or cleans up; patient completes activity. [place] assists only prior to or following the activity. 4-Supervision or Touching Assistance-helper provides verbal cues and/or lisa dedra/steadying and/or contact guard assistance as patient completes activity. Assistance may be provided throughout the activity or intermittently. 3-Partial/Moderate Assistance-helper does LESS THAN HALF the effort. [place] lifts, holds or supports trunk or limbs, but provides less than half the effort. 2-Substantial/Maximal Assistance-helper does MORE THAN HALF the effort. [place] lifts or holds trunk or limbs and provides more than half the effort. 6-Tovpwwtrw-fwopkz does ALL the effort. Patient does none of the effort to complete the activity. Or, the assistance of 2 or more helpers is required for the patient to complete the activity. If activity was not attempted, code reason: 7-Patient Refused. 9-Not Applicable-not attempted and the patient did not perform the activity before the current illness, exacerbation or injury. 10-Not Attempted due to Environmental Limitations-(lack of equipment, weather restraints, etc.). 88-Not Attempted due to Medical Conditions or Safety Concerns. Bed Mobility: 6 Transfers (B,C,W/C): 6 Gait: 6 Stairs: 6 Indoor Mobility (Ambulation): Independent Stairs: Independent Prior Devices Use: None PT Evaluation-Current Subjective Patient agrees to PT. Pain Numeric Pain Scale: 10-Worst Possible Pain Location: Lower Location Body Site: Genital Pain Description: Sharp Objective Patient Orientation: Normal For Age Attachments: Oxygen, Mejia Catheter, IV ROM/Strength ROM Lower Extremities bilateral LE WFL Strength Lower Extremities 4/5 grossly bilateral LE Integumentary/Posture Integumentary refer to nursing notes Bladder Incontinence: Mejia Cath Posture WFL Neuromuscular (Tone, Coordination, Reflexes) grossly intact Sensory Vision: Wears Glasses Hearing: Functional Transfers Roll Left & Right (QC): 4 Sit to Lying (QC): 4 Lying to Sitting/Side of Bed(Q: 4 Sit to Stand (QC): 4 Chair/Wml-fa-Djroy Xfer(QC): 4 Toilet Transfer (QC): 4 Car Transfer (QC): 4 Gait Does the Patient Walk?: Yes Mode of Locomotion: Walk Anticipated Mode of Locomotion: Walk Walk 10 feet (QC): 4 Walk 50 ft with 2 Turns(QC): 4 Walk 150 ft (QC): 4 Walking 10ft/uneven surface-QC: 4 Distance: >300' Gait Assistive Device: FWW Comments/Gait Description slow, steady functional gait sequence Wheelchair Training Does the Pt Use a Wheelchair?: No Wheel 50 ft with 2 turns (QC): 9 Wheel 150 ft (QC): 9 Stairs #of Steps: 1 1 Step (curb) (QC): 4 4 Steps (QC): 88 12 Steps (QC): 88 Balance Sitting Static: Normal Sitting Dynamic: Normal Standing Static: Normal Standing Dynamic: Normal Picking up an Object (QC): 88 Treatment Ambulate FWW SBA >300' Assessment/Needs 76 y.o. female, will benefit from skilled PT to address functional strength and mobility to improve current LOF to safely return to home with spouse at maximum LOF. Rehab Potential: Fair PT Shelter Goals School Boat Driver Goals PT Shelter Goals Time Frame: Jan 11, 2022 Roll Left & Right (QC): 6 Sit to Lying (QC): 6 Lying-Sitting on Side/Bed(QC): 6 Sit to Stand (QC): 6 Chair/Qda-zw-Oxrdc Xfer(QC): 6 Toilet Transfer (QC): 6 Car Transfer (QC): 6 Does the Patient Walk: Yes Walk 10 feet (QC): 6 Walk 50ft with 2 Turns (QC): 6 Walk 150 ft (QC): 6 Walking 10ft on Uneven Surface: 6 1 Step (curb) (QC): 6 4 Steps (QC): 6 12 Steps (QC): 9 Picking up an Object (QC): 6 Wheel 50 feet with 2 turns (QC: 9 Type: N/A Wheel 150 feet: 9 Type: N/A PT Plan Problem List Problem List: Activity Tolerance, Functional Strength, Safety, Balance, Gait, Transfer, Bed Mobility Treatment/Plan Treatment Plan: Continue Plan of Care Treatment Plan: Bed Mobility, Education, Functional Activity Donaldo, Functional Strength, Gait, Safety, Therapeutic Exercise, Transfers Treatment Duration: Jan 11, 2022 Frequency: 6 times per week Estimated Hrs Per Day: .25 hour per day Patient and/or Family Agrees t: Yes Time/GCodes Time In: 1055 Time Out: 1120 Total Billed Treatment Time: 25 Total Billed Treatment 1 visit EVModC 10 min FA 15 min BHARATHI GOMEZ PT Dec 27, 2021 11:31
[2021-12-27 12:20] VITALS: BP 140/63
[2021-12-27] MEDS: POTASSIUM CL 10MEQ/50ML IVPB 50 ML IV SCH ×2 (12:38→12:39)
[2021-12-27] MEDS: NS IV 1000 ML 1,000 ML IV SCH ×3 (12:51→23:32)
[2021-12-27] MEDS: ENOXAPARIN 40 MG/0.4 ML (LOVENOX) SYR SC SCH ×2 (12:54→23:33)
--- NOTE | 2021-12-27 14:16 | Occupational Therapy Eval ---
OT Evaluation-General/PLF Medical Diagnosis Admission Date Dec 27, 2021 at 11:09 Medical Diagnosis: post op ex lap for colo-ves, colo-vag fistula Onset Date: Dec 23, 2021 Therapy Diagnosis Therapy Diagnosis: decreased ADL status Height/Weight Height (Feet): 5 Height (Inches): 1.00 Weight (Pounds): 228 Weight (Ounces): 0.0 Precautions Precautions/Isolations: Standard Precautions Referral Physician: Cindy Referral Reason: Evaluation/Treatment Medical History Pertinent Medical History: Arthritis, DM, HTN, Hypothroidism Additional Medical History CPAP at night, DDD, arthritis, scoliosis, chronic back pain Current History SWB status for antibiotics and therapy Social History Home: Single Level Current Living Status: Spouse Entry Into Home: Stairs With Railing Steps Into Home: 4 ADL-Prior Level of Function SCALE: Activities may be completed with or without assistive devices. 5-Sjpdojiffg-qdplwez completes the activity by him/herself with no assistance from a helper. 5-Set-up or Clean-up Assistance-helper sets up or cleans up; patient completes activity. [place] assists only prior to or following the activity. 4-Supervision or Touching Assistance-helper provides verbal cues and/or touching/steadying and/or contact guard assistance as patient completes activity. Assistance may be provided throughout the activity or intermittently. 3-Partial/Moderate Assistance-helper does LESS THAN HALF the effort. [place] lifts, holds or supports trunk or limbs, but provides less than half the effort. 2-Substantial/Maximal Assistance-helper does MORE THAN HALF the effort. [place] lifts or holds trunk or limbs and provides more than half the effort. 1-Vknhpujgt-kjaekz does ALL the effort. Patient does none of the effort to complete the activity. Or, the assistance of 2 or more helpers is required for the patient to complete the activity. If activity was not attempted, code reason: 7-Patient Refused. 9-Not Applicable-not attempted and the patient did not perform the activity before the current illness, exacerbation or injury. 10-Not Attempted due to Environmental Limitations-(lack of equipment, weather restraints, etc.). 88-Not Attempted due to Medical Conditions or Safety Concerns. ADL PLOF Comments Pt reports IND with ADLs and functional mobility at PLOF, no AD Self Care: Independent Functional Cognition: Independent OT Current Status Subjective Pt in bed, agreeable to OT tx. Pt had 4 muscle spasms during tx, did not rate pain. Mental Status/Objective Patient Orientation: Person, Place, Time, Situation Attachments: Colostomy/Ileostomy, Mejia Catheter, IV, Oxygen (1L NC) Current Hand Dominance: Right Upper Extremity ROM WFL Upper Extremity Coordination WFL Upper Extremity Strength grossly 3/5, not formally tested due to reports of back pain and muscle spasms ADL-Treatment Eating (QC): 88 Oral Hygiene (QC): 5 (per clinical judgment) Shower/Bathe Self (QC): 3 (Per clinical judgment due to muscle spasms/pain during evaluation. Pt would be able to wash UB, assistance with LB.) Upper Body Dressing (QC): 10 Lower Body Dressing (QC): 88 (No attempted due to medical condition) On/Off Footwear (QC): 3 (Per pt report, she was able to slip on shoes ) Toileting Hygiene (QC): 1 (total assist with catheter and ostomy bag) Other Treatments Pt in bed, agreeable to OT Tx. Pt provided information about PLOF and home set up and participated in UE screen. Pt had 4 muscle spasms throughout tx, where she would stop talking, and attempt to control her breathing through her pain. OT educated pt on purpose and benefit of OT as well as the POC while she is admitted, she verbalized agreement. Pt declined OOB activities at this time due to muscle spasms. OT also provided education on ADL modifications with pt's new ostomy bag (pants vs dresses, etc). Per PT report, pt requires SBA for functional mobility using FWW, >300', and QC 4 for functional transfers/mobility . Post tx, pt in bed, call light in reach and all needs met. Education OT Patient Education: Correct positioning, Energy conservation, Modified ADL techniques, Progress toward Goal/Update tx plan, Purpose of tx/functional activities, Rehab process Teaching Recipient: Patient Teaching Methods: Discussion Response to Teaching: Verbalize Understanding OT Medical Laboratory Assistant Goals Medical Laboratory Assistant Goals Time Frame: Jan 10, 2022 Eating (QC): 6 Oral Hygiene (QC): 6 Toileting Hygiene (QC): 4 Shower/Bathe Self (QC): 4 Upper Body Dressing (QC): 5 Lower Body Dressing (QC): 4 On/Off Footwear (QC): 5 Additional Goals: 1-Demonstrate ADL Tasks, 2-Verbalize Understanding, 3- ImproveStrength/Donaldo 1=Demonstrate adherence to instructed precautions during ADL tasks. 2=Patient will verbalize/demonstrate understanding of assistive devices/modifications for ADL. 3=Patient will improve strength/tolerance for activity to enable patient to perform ADL's. OT Education/Plan Problem List/Assessment Assessment: Decreased Activ Tolerance, Decreased UE Strength, Impaired Funct Balance, Impaired I ADL's, Impaired Self-Care Skills Discharge Recommendations Plan/Recommendations: Continue POC Treatment Plan/Plan of Care Patient would benefit from OT for education, treatment and training to promote independence in ADL's, mobility, safety and/or upper extremity function for ADL's. Plan of Care: ADL Retraining, Functional Mobility, UE Funct Exercise/Act Treatment Duration: Jan 10, 2022 Frequency: 5 times per week Estimated Hrs Per Day: .25 hour per day Agreement: Yes Rehab Potential: Fair Time/GCodes Start Time: 13:40 Stop Time: 14:05 Total Time Billed (hr/min): 25 Billed Treatment Time 1, EVM (15'), ADL (10') SORIN SAAVEDRA OT Dec 27, 2021 14:16
[2021-12-27 15:40] VITALS: BP 149/67
[2021-12-27] MEDS: PIPERACILLIN SODIUM/TAZOBACTAM 4.5 GM in NS (IVPB) 100 ML IV SCH ×2 (16:24→23:33)
[2021-12-27 17:20] VITALS: BP 163/71
[2021-12-27] MEDS: morphine INJ 4 MG/ML 1 ML (VIAL/SYRINGE) IVP PRN (20:55)
[2021-12-27] MEDS: TEMAZEPAM 15 MG (RESTORIL) CAP PO SCH (21:08)
--- NOTE | 2021-12-27 21:11 | Progress Note - Surgery ---
Subjective Date Seen by a Provider: Dec 27, 2021 Time Seen by a Provider: 17:03 Subjective/Events-last exam Patient still feeling better. She is having some issues with the Mejia but it was removed and started having a little bit of feculent drainage from her bladder. Patient also had a bowel movement. Her colostomy is also starting to function. Her pain is under control. She denies any nausea vomiting fever sweats chills shortness of breath or chest pain. BC down to 15.7 Objective Exam Vital Signs Date Time Temp Pulse Resp B/P (MAP) Pulse Ox O2 Delivery O2 Flow Rate FiO2 12/27/21 17:20 36.2 81 20 163/71 (101) 95 Nasal Cannula 1.00 12/27/21 15:40 36.0 79 20 149/67 (94) 96 Nasal Cannula 1.00 12/27/21 15:40 36.0 79 20 149/67 (94) 96 Nasal Cannula 1.00 12/27/21 12:20 36.7 81 19 140/63 (88) 96 Nasal Cannula 1.00 Capillary Refill : General Appearance: No Apparent Distress, WD/WN, Obese HEENT: PERRL/EOMI, Normal ENT Inspection Neck: Full Range of Motion, Normal Inspection Respiratory: Chest Non Tender, No Accessory Muscle Use, No Respiratory Distress Cardiovascular: Regular Rate, Rhythm, No JVD Gastrointestinal: non tender, soft, other (Ostomy left upper quadrant productive and pink) Extremity: Normal Inspection, Non Tender Neurologic/Psychiatric: Alert, Oriented x3, No Motor/Sensory Deficits, Normal Mood/Affect Skin: Normal Color, Warm/Dry Lymphatic: No Adenopathy Results Lab Laboratory Tests 12/27/21 17:17: Glucometer 104 12/27/21 20:14: Glucometer 195H Assessment/Plan Assessment/Plan Assessment/Plan 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 Continue IV antibiotics Continue IV fluids. Remove Mejia catheter if has difficulty draining completely would remove. The catheter was getting kind of plugged up and have to be flushed regularly therefore I think since she is diverted now this may improve and not need the Mejia. ASHLEY RAMSEY DO Dec 27, 2021 21:11
[2021-12-28] MEDS: morphine INJ 4 MG/ML 1 ML (VIAL/SYRINGE) IVP PRN ×2 (02:01→04:59)
[2021-12-28] MEDS: NS IV 1000 ML 1,000 ML IV SCH (04:59)
[2021-12-28 05:30] LABS: HEMATOCRIT 37 % (35-52); HEMOGLOBIN 12.4 g/dL (11.5-16.0); MEAN CORPUSCULAR HEMOGLOBIN 32 pg (25-34); MEAN CORPUSCULAR HGB CONC 34 g/dL (32-36); MEAN CORPUSCULAR VOLUME 93 fL (80-99); MEAN PLATELET VOLUME 10.8 fL (9.0-12.2); PLATELET COUNT 224 10^3/uL (130-400)
[2021-12-28 05:32] VITALS: BP 156/83
[2021-12-28 05:44] LABS: ALBUMIN 2.8 GM/DL (3.2-4.5); POTASSIUM 3.2 MMOL/L (3.6-5.0)
[2021-12-28 05:45] LABS: CALCIUM 8.1 MG/DL (8.5-10.1)
[2021-12-28 05:46] LABS: TOTAL PROTEIN 5.5 GM/DL (6.4-8.2)
[2021-12-28 05:48] LABS: BILIRUBIN,TOTAL 0.8 MG/DL (0.1-1.0)
[2021-12-28 05:49] LABS: PHOSPHORUS 1.8 MG/DL (2.3-4.7)
[2021-12-28 05:50] LABS: CREATININE SERUM 0.56 MG/DL (0.60-1.30)
[2021-12-28] MEDS ORDERED: NON-FORMULARY MEDICATION 1 EA EA PO SCH (06:30)
[2021-12-28] MEDS ORDERED: PATIENT MAY USE OWN MED,SINGLE MED PO SCH (07:00)
[2021-12-28] MEDS: PANTOPRAZOLE 40 MG (PROTONIX) VIAL IV SCH (08:54)
[2021-12-28] MEDS: PIPERACILLIN SODIUM/TAZOBACTAM 4.5 GM in NS (IVPB) 100 ML IV SCH ×2 (08:54→17:09)
[2021-12-28] MEDS ORDERED: POTASSIUM PHOSPHATE INJ 15 MM in NS (IVPB) 250 ML IV NR (09:00)
[2021-12-28] MEDS: [UNRECOGNIZED DRUG - REMARK] PO SCH (09:26)
--- NOTE | 2021-12-28 09:31 | Physical Therapy Daily Note ---
PT Daily Note-Current Subjective Patient agrees to PT. She reports she feels better since the raymundo catheter was removed. Mental Status Patient Orientation: Normal For Age Attachments: Colostomy/Ileostomy, Drains, IV Transfers SCALE: Activities may be completed with or without assistive devices. 9-Vkxficrmrb-vcoydlr completes the activity by him/herself with no assistance from a helper. 5-Set-up or Clean-up Assistance-helper sets up or cleans up; patient completes activity. [place] assists only prior to or following the activity. 4-Supervision or Touching Assistance-helper provides verbal cues and/or touching/steadying and/or contact guard assistance as patient completes activity. Assistance may be provided throughout the activity or intermittently. 3-Partial/Moderate Assistance-helper does LESS THAN HALF the effort. [place] lifts, holds or supports trunk or limbs, but provides less than half the effort. 2-Substantial/Maximal Assistance-helper does MORE THAN HALF the effort. [place] lifts or holds trunk or limbs and provides more than half the effort. 5-Reurposrm-qkpehf does ALL the effort. Patient does none of the effort to com plete the activity. Or, the assistance of 2 or more helpers is required for the patient to complete the activity. If activity was not attempted, code reason: 7-Patient Refused. 9-Not Applicable-not attempted and the patient did not perform the activity before the current illness, exacerbation or injury. 10-Not Attempted due to Environmental Limitations-(lack of equipment, weather restraints, etc.). 88-Not Attempted due to Medical Conditions or Safety Concerns. Lying to Sitting/Side of Bed(Q: 4 Sit to Stand (QC): 4 Chair/Mhq-ii-Tqvlk Xfer(QC): 4 Gait Training Distance: 350' Walk 10 feet (QC): 4 Walk 50 ft with 2 Turns(QC): 4 Walk 150 ft (QC): 4 Gait Assistive Device: FWW slow steady gait sequence with no deviation Assessment Patient tolerated treatment well and is up in recliner with needs met. Much improved pain control on this date. Continue to increase activity as tolerated by patient. PT Senior Care Goals Lug Breaker And Wire Puller Goals PT Lug Breaker And Wire Puller Goals Time Frame: Jan 11, 2022 Roll Left & Right (QC): 6 Sit to Lying (QC): 6 Lying-Sitting on Side/Bed(QC): 6 Sit to Stand (QC): 6 Chair/Zir-ww-Ksbdn Xfer(QC): 6 Toilet Transfer (QC): 6 Car Transfer (QC): 6 Does the Patient Walk: Yes Walk 10 feet (QC): 6 Walk 50ft with 2 Turns (QC): 6 Walk 150 ft (QC): 6 Walking 10ft on Uneven Surface: 6 1 Step (curb) (QC): 6 4 Steps (QC): 6 12 Steps (QC): 9 Picking up an Object (QC): 6 Wheel 50 feet with 2 turns (QC: 9 Type: N/A Wheel 150 feet: 9 Type: N/A PT Plan Treatment/Plan Treatment Plan: Continue Plan of Care Treatment Plan: Bed Mobility, Education, Functional Activity Donaldo, Functional Strength, Gait, Safety, Therapeutic Exercise, Transfers Treatment Duration: Jan 11, 2022 Frequency: 6 times per week Estimated Hrs Per Day: .25 hour per day Patient and/or Family Agrees t: Yes Time/GCodes Time In: 855 Time Out: 918 Total Billed Treatment Time: 23 Total Billed Treatment 1 visit FA x 2 23 min BHARATHI GOMEZ PT Dec 28, 2021 09:31
[2021-12-28] MEDS ORDERED: POTASSIUM CHLORIDE INJ 20 MEQ in NS IV 1000 ML 1,000 ML IV SCH (10:02)
--- NOTE | 2021-12-28 10:05 | Progress Note ---
Subjective Subjective Date Seen by Provider: Dec 28, 2021 Time Seen by Provider: 10:15 Pt reports that she is feeling much better today - she reports that she slept better after raymundo removed and use of pure wick was initiated. Her appetite is improved, she was nervous about drinking some of the liquids due to the sugars in the drinks. She denies dizziness, is sitting up in bed or in chair for several hours every day. Review of Systems General: No Chills; Fatigue, Appetite (improved) HEENT: No Head Aches, No Visual Changes, No Dysphasia Pulmonary: No Dyspnea, No Cough Cardiovascular: No: Chest Pain, Palpitations Gastrointestinal: Abdominal Pain; No: Nausea Genitourinary: No Dysuria; Frequency Musculoskeletal: arm pain (arthritis), back pain (arthritis) Neurological: No: Weakness, Confusion Objective Exam Vital Signs Vital Signs Date Time Temp Pulse Resp B/P (MAP) Pulse Ox O2 Delivery O2 Flow Rate FiO2 12/28/21 05:32 36.7 95 22 156/83 (107) 91 Nasal Cannula 1.00 12/27/21 20:45 Nasal Cannula 1.00 12/27/21 17:20 36.2 81 20 163/71 (101) 95 Nasal Cannula 1.00 12/27/21 15:40 36.0 79 20 149/67 (94) 96 Nasal Cannula 1.00 12/27/21 15:40 36.0 79 20 149/67 (94) 96 Nasal Cannula 1.00 12/27/21 12:20 36.7 81 19 140/63 (88) 96 Nasal Cannula 1.00 I & O 12/28/21 06:59 Intake Total 3540 ml Output Total 3695 ml Balance -155 ml General Appearance: No Apparent Distress, WD/WN, Obese HEENT: PERRL/EOMI, Normal ENT Inspection Neck: Full Range of Motion, Normal Inspection Respiratory: Chest Non Tender, No Accessory Muscle Use, No Respiratory Distress Cardiovascular: Regular Rate, Rhythm Gastrointestinal: Normal Bowel Sounds, Soft, Other (tender around surgical site and ostomy, feces in ostomy bag) Extremity: Normal Inspection, Non Tender Neurologic/Psychiatric: Alert, Oriented x3, No Motor/Sensory Deficits, Normal Mood/Affect Skin: Normal Color, Warm/Dry Lymphatic: No Adenopathy Results Lab Laboratory Tests 12/27/21 17:17: Glucometer 104 12/27/21 20:14: Glucometer 195H 12/28/21 05:00: White Blood Count 14.0H, Red Blood Count 3.93, Hemoglobin 12.4, Hematocrit 37, Mean Corpuscular Volume 93, Mean Corpuscular Hemoglobin 32, Mean Corpuscular Hemoglobin Concent 34, Red Cell Distribution Width 16.5H, Platelet Count 224, Mean Platelet Volume 10.8, Sodium Level 138, Potassium Level 3.2L, Chloride Level 109H, Carbon Dioxide Level 18L, Anion Gap 11, Blood Urea Nitrogen 7, Creatinine 0.56L, Estimat Glomerular Filtration Rate 95, BUN/Creatinine Ratio 13, Glucose Level 133H, Calcium Level 8.1L, Corrected Calcium 9.1, Phosphorus Level 1.8L, Total Bilirubin 0.8, Aspartate Amino Transf (AST/SGOT) 32, Alanine Aminotransferase (ALT/SGPT) 22, Alkaline Phosphatase 59, Total Protein 5.5L, Albumin 2.8L Assessment/Plan Assessment/Plan Admission Dx Sepsis Leukocytosis Sigmoid diverticulitis 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 Cholelethiasis Hypertension Diabetes Mellitus Bipolar Mood Disorder Post-Procedural Hypothyroidism Hypokalemia Hypophosphatemia Sleep apnea Assessment and Plan Sepsis Leukocytosis Sigmoid diverticulitis 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 - Consult to Dr. Rai surgery with ostomy and drain placed on 12/24/21 - continue with management per surgery - continue with slow introduction of fluids per surgery - Pt advanced to clear liquid. Cholelethiasis - not current issue - will address at a later time or when/if symptoms arise. Hypertension - holding home meds for now, will treat with IV meds if needed. Diabetes Mellitus - holding home meds for now, will treat with insulin if needed. Post-Procedural Hypothyroidism - oral thyroid supplement restarted. Hypokalemia and Hypophosphatemia - replace with fluids and potassium phosphate - monitor labs Sleep apnea - home machine brought in by family - continue with current cpap use DVT prophylaxis - on lovenox and scd's GI prophylaxis with Protonix BERT PADILLA MD Dec 28, 2021 10:05
[2021-12-28] MEDS ORDERED: POTASSIUM PHOSPHATE INJ 30 MM in NS (IVPB) 250 ML IV ONE (10:15)
[2021-12-28] MEDS: NS W/KCL 20 MEQ/L 1,000 ML IV SCH ×3 (10:59→19:17)
[2021-12-28] MEDS: LOSARTAN 25 MG (COZAAR) TAB PO SCH (12:33)
[2021-12-28] MEDS: ENOXAPARIN 40 MG/0.4 ML (LOVENOX) SYR SC SCH (12:33)
--- NOTE | 2021-12-28 14:17 | Progress Note - Surgery ---
Subjective Date Seen by a Provider: Dec 28, 2021 Time Seen by a Provider: 10:21 Subjective/Events-last exam Continues to feel better. Leaking urine. Some stool from bottom, but not sure where coming from. Colostomy is function. Pain controlled. Tolerating liquids. Denies n/v fever sweats chills shortness of breath or chest pain. Objective Exam Vital Signs Date Time Temp Pulse Resp B/P (MAP) Pulse Ox O2 Delivery O2 Flow Rate FiO2 12/28/21 09:00 Room Air 12/28/21 05:32 36.7 95 22 156/83 (107) 91 Nasal Cannula 1.00 12/27/21 20:45 Nasal Cannula 1.00 12/27/21 17:20 36.2 81 20 163/71 (101) 95 Nasal Cannula 1.00 12/27/21 15:40 36.0 79 20 149/67 (94) 96 Nasal Cannula 1.00 12/27/21 15:40 36.0 79 20 149/67 (94) 96 Nasal Cannula 1.00 I & O 12/28/21 07:00 Intake Total 3540 ml Output Total 3695 ml Balance -155 ml Capillary Refill : General Appearance: No Apparent Distress, WD/WN, Obese HEENT: PERRL/EOMI, Normal ENT Inspection Neck: Full Range of Motion, Normal Inspection Respiratory: Chest Non Tender, No Accessory Muscle Use, No Respiratory Distress Cardiovascular: Regular Rate, Rhythm, No JVD Gastrointestinal: non tender, soft, other (Ostomy left upper quadrant productive and pink) Extremity: Normal Inspection, Non Tender Neurologic/Psychiatric: Alert, Oriented x3, No Motor/Sensory Deficits, Normal Mood/Affect Skin: Normal Color, Warm/Dry Lymphatic: No Adenopathy Results Lab Laboratory Tests 12/27/21 17:17: Glucometer 104 12/27/21 20:14: Glucometer 195H 12/28/21 05:00: White Blood Count 14.0H, Red Blood Count 3.93, Hemoglobin 12.4, Hematocrit 37, Mean Corpuscular Volume 93, Mean Corpuscular Hemoglobin 32, Mean Corpuscular Hemoglobin Concent 34, Red Cell Distribution Width 16.5H, Platelet Count 224, Mean Platelet Volume 10.8, Sodium Level 138, Potassium Level 3.2L, Chloride Level 109H, Carbon Dioxide Level 18L, Anion Gap 11, Blood Urea Nitrogen 7, Creatinine 0.56L, Estimat Glomerular Filtration Rate 95, BUN/Creatinine Ratio 13, Glucose Level 133H, Calcium Level 8.1L, Corrected Calcium 9.1, Phosphorus Level 1.8L, Total Bilirubin 0.8, Aspartate Amino Transf (AST/SGOT) 32, Alanine Aminotransferase (ALT/SGPT) 22, Alkaline Phosphatase 59, Total Protein 5.5L, Albumin 2.8L 12/28/21 10:35: Glucometer 181H Assessment/Plan Assessment/Plan Assessment/Plan 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 Continue IV antibiotics Continue IV fluids. Advance diet as tolerates. Should have continued improvement of stool leaking from fistulas If has any difficulty urinating can put raymundo back in. ASHLEY RAMSEY DO Dec 28, 2021 14:17
[2021-12-28 17:00] VITALS: BP 158/72
[2021-12-28] MEDS: inSUlin ASPART (NovoLOG) 1 UNIT/0.01 ML (CHARGE PER UNIT) SC SCH ×2 (17:18→21:36)
[2021-12-28 19:20] VITALS: BP 152/73
[2021-12-28] MEDS: TEMAZEPAM 15 MG (RESTORIL) CAP PO SCH (21:29)
[2021-12-29] MEDS: ENOXAPARIN 40 MG/0.4 ML (LOVENOX) SYR SC SCH ×2 (00:08→12:44)
[2021-12-29] MEDS: PIPERACILLIN SODIUM/TAZOBACTAM 4.5 GM in NS (IVPB) 100 ML IV SCH ×3 (00:08→16:19)
[2021-12-29] MEDS: NS W/KCL 20 MEQ/L 1,000 ML IV SCH ×2 (03:35→12:44)
[2021-12-29] MEDS: morphine INJ 4 MG/ML 1 ML (VIAL/SYRINGE) IVP PRN (03:36)
[2021-12-29] MEDS: inSUlin ASPART (NovoLOG) 1 UNIT/0.01 ML (CHARGE PER UNIT) SC SCH ×4 (06:00→21:00)
[2021-12-29 06:08] LABS: HEMATOCRIT 38 % (35-52); HEMOGLOBIN 12.7 g/dL (11.5-16.0); MEAN CORPUSCULAR HEMOGLOBIN 31 pg (25-34); MEAN CORPUSCULAR HGB CONC 34 g/dL (32-36); MEAN CORPUSCULAR VOLUME 94 fL (80-99); PLATELET COUNT 247 10^3/uL (130-400); WHITE BLOOD COUNT 12.2 10^3/uL (4.3-11.0)
[2021-12-29 06:18] LABS: ALBUMIN 2.8 GM/DL (3.2-4.5); POTASSIUM 3.8 MMOL/L (3.6-5.0)
[2021-12-29 06:19] LABS: CALCIUM 8.3 MG/DL (8.5-10.1)
[2021-12-29 06:21] LABS: TOTAL PROTEIN 5.6 GM/DL (6.4-8.2)
[2021-12-29 06:22] LABS: BILIRUBIN,TOTAL 0.5 MG/DL (0.1-1.0)
[2021-12-29 06:23] LABS: PHOSPHORUS 2.2 MG/DL (2.3-4.7)
[2021-12-29 06:24] LABS: CREATININE SERUM 0.58 MG/DL (0.60-1.30)
[2021-12-29 06:27] LABS: MAGNESIUM 1.8 MG/DL (1.6-2.4)
[2021-12-29] MEDS: PANTOPRAZOLE 40 MG (PROTONIX) VIAL IV SCH (08:49)
[2021-12-29] MEDS: LOSARTAN 25 MG (COZAAR) TAB PO SCH (08:49)
--- NOTE | 2021-12-29 09:03 | Progress Note ---
Subjective Subjective Date Seen by Provider: Dec 29, 2021 Time Seen by Provider: 09:00 Pt reports that she is feeling better today, was active and up in the chair a lot yesterday. She states that her pain is improved, she has had mostly clear urine in the purewick catheter. She denies nausea, dizziness, chest pain, shortness of breath. Review of Systems General: No Chills; Fatigue, Appetite (improved) HEENT: No Head Aches, No Visual Changes, No Dysphasia Pulmonary: No Dyspnea, No Cough Cardiovascular: No: Chest Pain, Palpitations Gastrointestinal: Abdominal Pain; No: Nausea Genitourinary: No Dysuria; Frequency Musculoskeletal: back pain (arthritis) Neurological: No: Weakness, Confusion Objective Exam Vital Signs Vital Signs Date Time Temp Pulse Resp B/P (MAP) Pulse Ox O2 Delivery O2 Flow Rate FiO2 12/28/21 19:33 95 Room Air 0.00 12/28/21 19:20 36.5 83 16 152/73 (99) 95 Room Air 12/28/21 19:20 Nasal Cannula 1.00 12/28/21 17:00 36.4 83 18 158/72 (100) 94 Room Air I & O 12/29/21 07:00 Intake Total 4350 ml Output Total 3950 ml Balance 400 ml General Appearance: No Apparent Distress, WD/WN, Obese HEENT: PERRL/EOMI, Normal ENT Inspection Neck: Full Range of Motion, Normal Inspection Respiratory: Chest Non Tender, No Accessory Muscle Use, No Respiratory Distress Cardiovascular: Regular Rate, Rhythm, No JVD Gastrointestinal: Normal Bowel Sounds, Soft, Other (tender around surgical site and ostomy, feces in ostomy bag) Extremity: Normal Inspection, Non Tender Neurologic/Psychiatric: Alert, Oriented x3, No Motor/Sensory Deficits, Normal Mood/Affect Skin: Normal Color, Warm/Dry Lymphatic: No Adenopathy Results Lab Laboratory Tests 12/28/21 10:35: Glucometer 181H 12/28/21 15:25: Glucometer 232H 12/28/21 21:33: Glucometer 151H 12/29/21 05:55: White Blood Count 12.2H, Red Blood Count 4.04, Hemoglobin 12.7, Hematocrit 38, Mean Corpuscular Volume 94, Mean Corpuscular Hemoglobin 31, Mean Corpuscular Hemoglobin Concent 34, Red Cell Distribution Width 17.0H, Platelet Count 247, Mean Platelet Volume 11.0, Sodium Level 143, Potassium Level 3.8, Chloride Level 114H, Carbon Dioxide Level 19L, Anion Gap 10, Blood Urea Nitrogen 7, Creatinine 0.58L, Estimat Glomerular Filtration Rate 94, BUN/Creatinine Ratio 12, Glucose Level 134H, Calcium Level 8.3L, Corrected Calcium 9.3, Phosphorus Level 2.2L, Magnesium Level 1.8, Total Bilirubin 0.5, Aspartate Amino Transf (AST/SGOT) 21, Alanine Aminotransferase (ALT/SGPT) 18, Alkaline Phosphatase 51, Total Protein 5.6L, Albumin 2.8L Assessment/Plan Assessment/Plan Admission Dx Sepsis Leukocytosis Sigmoid diverticulitis 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 Cholelethiasis Hypertension Diabetes Mellitus Bipolar Mood Disorder Post-Procedural Hypothyroidism Hypokalemia Hypophosphatemia Sleep apnea Assessment and Plan Sepsis Leukocytosis Sigmoid diverticulitis 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 - Consult to Dr. Rai surgery with ostomy and drain placed on 12/24/21 - continue with management per surgery - continue with slow introduction of fluids per surgery - Pt advanced to clear liquid. Cholelethiasis - not current issue - will address at a later time or when/if symptoms arise. Hypertension - on losartan 25mg daily Diabetes Mellitus - holding home meds for now, will treat with insulin if needed. Post-Procedural Hypothyroidism - oral thyroid supplement restarted. 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
[2021-12-29] MEDS ORDERED: ACETAMINOPHEN 325 MG TABLET PO PRN (09:15)
--- NOTE | 2021-12-29 15:34 | Progress Note - Surgery ---
Subjective Date Seen by a Provider: Dec 29, 2021 Time Seen by a Provider: 15:30 Subjective/Events-last exam Patient doing well. Tolerating clear liquids. Ostomy is functioning. Less stool from fistulas. Hungry. Denies nausea vomiting fever sweats chills shortness of breath or chest pain. Objective Exam Vital Signs Date Time Temp Pulse Resp B/P (MAP) Pulse Ox O2 Delivery O2 Flow Rate FiO2 12/29/21 08:00 Room Air 12/28/21 19:33 95 Room Air 0.00 12/28/21 19:20 36.5 83 16 152/73 (99) 95 Room Air 12/28/21 19:20 Nasal Cannula 1.00 12/28/21 17:00 36.4 83 18 158/72 (100) 94 Room Air I & O 12/29/21 07:00 Intake Total 4350 ml Output Total 3950 ml Balance 400 ml Capillary Refill : General Appearance: No Apparent Distress, WD/WN, Obese HEENT: PERRL/EOMI, Normal ENT Inspection Neck: Full Range of Motion, Normal Inspection Respiratory: Chest Non Tender, No Accessory Muscle Use, No Respiratory Distress Cardiovascular: Regular Rate, Rhythm, No JVD Gastrointestinal: non tender, soft, other (Ostomy left upper quadrant productive and pink) Extremity: Normal Inspection, Non Tender Neurologic/Psychiatric: Alert, Oriented x3, No Motor/Sensory Deficits, Normal Mood/Affect Skin: Normal Color, Warm/Dry Lymphatic: No Adenopathy Results Lab Laboratory Tests 12/28/21 21:33: Glucometer 151H 12/29/21 05:55: White Blood Count 12.2H, Red Blood Count 4.04, Hemoglobin 12.7, Hematocrit 38, Mean Corpuscular Volume 94, Mean Corpuscular Hemoglobin 31, Mean Corpuscular Hemoglobin Concent 34, Red Cell Distribution Width 17.0H, Platelet Count 247, Mean Platelet Volume 11.0, Sodium Level 143, Potassium Level 3.8, Chloride Level 114H, Carbon Dioxide Level 19L, Anion Gap 10, Blood Urea Nitrogen 7, Creatinine 0.58L, Estimat Glomerular Filtration Rate 94, BUN/Creatinine Ratio 12, Glucose Level 134H, Calcium Level 8.3L, Corrected Calcium 9.3, Phosphorus Level 2.2L, Magnesium Level 1.8, Total Bilirubin 0.5, Aspartate Amino Transf (AST/SGOT) 21, Alanine Aminotransferase (ALT/SGPT) 18, Alkaline Phosphatase 51, Total Protein 5.6L, Albumin 2.8L 12/29/21 10:43: Glucometer 169H Assessment/Plan Assessment/Plan Assessment/Plan 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 Continue IV antibiotics Continue IV fluids. Advance diet soft Should have continued improvement of stool leaking from fistulas If has any difficulty urinating can put raymundo back in. Has wick in place unable to hold urine and at this time. ASHLEY RAMSEY DO Dec 29, 2021 15:34
[2021-12-29 17:00] VITALS: BP 144/82
[2021-12-29] MEDS: TEMAZEPAM 15 MG (RESTORIL) CAP PO SCH (20:41)
[2021-12-30] MEDS: PIPERACILLIN SODIUM/TAZOBACTAM 4.5 GM in NS (IVPB) 100 ML IV SCH ×3 (00:12→17:22)
[2021-12-30] MEDS: ENOXAPARIN 40 MG/0.4 ML (LOVENOX) SYR SC SCH ×2 (00:12→11:49)
[2021-12-30] MEDS: NS W/KCL 20 MEQ/L 1,000 ML IV SCH (02:11)
[2021-12-30] MEDS: inSUlin ASPART (NovoLOG) 1 UNIT/0.01 ML (CHARGE PER UNIT) SC SCH ×4 (05:09→20:28)
[2021-12-30] MEDS: morphine INJ 4 MG/ML 1 ML (VIAL/SYRINGE) IVP PRN ×2 (05:24→13:00)
[2021-12-30] MEDS: [UNRECOGNIZED DRUG - REMARK] PO SCH (05:29)
[2021-12-30 06:01] LABS: HEMATOCRIT 39 % (35-52); HEMOGLOBIN 13.3 g/dL (11.5-16.0); MEAN CORPUSCULAR HEMOGLOBIN 32 pg (25-34); MEAN CORPUSCULAR HGB CONC 34 g/dL (32-36); MEAN CORPUSCULAR VOLUME 94 fL (80-99); MEAN PLATELET VOLUME 11.3 fL (9.0-12.2); PLATELET COUNT 273 10^3/uL (130-400); WHITE BLOOD COUNT 11.7 10^3/uL (4.3-11.0)
[2021-12-30 08:25] VITALS: BP 124/75
[2021-12-30] MEDS: LOSARTAN 25 MG (COZAAR) TAB PO SCH ×2 (08:45→08:47)
[2021-12-30] MEDS: PANTOPRAZOLE 40 MG (PROTONIX) VIAL IV SCH (08:45)
--- NOTE | 2021-12-30 08:59 | Progress Note ---
Subjective Subjective Date Seen by Provider: Dec 30, 2021 Time Seen by Provider: 08:40 PT REPORTS THAT SHE CONTINUES TO GET BETTER EVERY DAY - SHE ATE A SOFT DIET YESTERDAY AND FELT FINE WITH THE MEAL, DID NOT HAVE STOMACH PAIN, NAUSEA. SHE REPORTS THAT SHE WALKED AROUND THE HALLS WITH HER MULTIPLE TIMES YES TERDAY AND DID WELL WITH AMBULATION. Review of Systems General: No Chills; Appetite (improved) HEENT: No Head Aches, No Visual Changes, No Dysphasia, No Sore Throat Pulmonary: No Dyspnea, No Cough Cardiovascular: No: Chest Pain, Palpitations Gastrointestinal: Abdominal Pain (IMPROVED), Other (LIQUID FROM OSTOMY); No: Nausea Genitourinary: No Dysuria; Frequency Musculoskeletal: back pain (CHRONIC) Neurological: No: Weakness, Confusion Objective Exam Vital Signs Vital Signs Date Time Temp Pulse Resp B/P (MAP) Pulse Ox O2 Delivery O2 Flow Rate FiO2 12/30/21 08:25 35.9 87 20 124/75 (91) 97 Room Air 12/29/21 20:40 Room Air 12/29/21 17:00 35.7 83 18 144/82 (102) 96 Room Air I & O 12/30/21 06:59 Intake Total 2890 ml Output Total 3345 ml Balance -455 ml General Appearance: No Apparent Distress, WD/WN, Obese HEENT: PERRL/EOMI, Normal ENT Inspection Neck: Full Range of Motion, Normal Inspection Respiratory: Chest Non Tender, No Accessory Muscle Use, No Respiratory Distress Cardiovascular: Regular Rate, Rhythm, No JVD Gastrointestinal: Normal Bowel Sounds, Non Tender, Soft, Other (LIQUID IN OSTOMY BAG, NO ERYTHEMA OF STOMACH AT SURGICAL SITES) Extremity: Normal Inspection, Non Tender, No Pedal Edema Neurologic/Psychiatric: Alert, Oriented x3, No Motor/Sensory Deficits, Normal Mood/Affect Skin: Normal Color, Warm/Dry Lymphatic: No Adenopathy Results Lab Laboratory Tests 12/29/21 10:43: Glucometer 169H 12/29/21 16:25: Glucometer 132H 12/29/21 21:04: Glucometer 130H 12/30/21 05:08: Glucometer 134H 12/30/21 05:40: White Blood Count 11.7H, Red Blood Count 4.18, Hemoglobin 13.3, Hematocrit 39, Mean Corpuscular Volume 94, Mean Corpuscular Hemoglobin 32, Mean Corpuscular Hemoglobin Concent 34, Red Cell Distribution Width 17.2H, Platelet Count 273, Mean Platelet Volume 11.3 Assessment/Plan Assessment/Plan Admission Dx Sepsis Leukocytosis Sigmoid diverticulitis 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 Cholelethiasis Hypertension Diabetes Mellitus Bipolar Mood Disorder Post-Procedural Hypothyroidism Hypokalemia Hypophosphatemia Sleep apnea Assessment and Plan Sepsis Leukocytosis Sigmoid diverticulitis 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 - Consult to Dr. Rai surgery with ostomy and drain placed on 12/24/21 (anticipate drain removal today) - continue with management per surgery - diet advanced to soft on 12/29/21, tolerating well Cholelethiasis - not current issue - will address at a later time or when/if symptoms arise. Hypertension - on losartan 25mg daily Diabetes Mellitus - holding home meds for now, will treat with insulin if needed. Post-Procedural Hypothyroidism - oral thyroid supplement restarted. 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
--- NOTE | 2021-12-30 10:16 | Physical Therapy Daily Note ---
PT Daily Note-Current Subjective Patient reports she is going home tomorrow. Mental Status Patient Orientation: Normal For Age Attachments: Drains, IV Transfers SCALE: Activities may be completed with or without assistive devices. 9-Rflssimhaw-oedffsm completes the activity by him/herself with no assistance from a helper. 5-Set-up or Clean-up Assistance-helper sets up or cleans up; patient completes activity. Blanch assists only prior to or following the activity. 4-Supervision or Touching Assistance-helper provides verbal cues and/or touching/steadying and/or contact guard assistance as patient completes activity. Assistance may be provided throughout the activity or intermittently. 3-Partial/Moderate Assistance-helper does LESS THAN HALF the effort. Blanch lifts, holds or supports trunk or limbs, but provides less than half the effort. 2-Substantial/Maximal Assistance-helper does MORE THAN HALF the effort. Blanch lifts or holds trunk or limbs and provides more than half the effort. 0-Usjorylay-vmwcbs does ALL the effort. Patient does none of the effort to complete the activity. Or, the assistance of 2 or more helpers is required for the patient to complete the activity. If activity was not attempted, code reason: 7-Patient Refused. 9-Not Applicable-not attempted and the patient did not perform the activity before the current illness, exacerbation or injury. 10-Not Attempted due to Environmental Limitations-(lack of equipment, weather restraints, etc.). 88-Not Attempted due to Medical Conditions or Safety Concerns. Roll Left & Right (QC): 6 Sit to Lying (QC): 6 Lying to Sitting/Side of Bed(Q: 6 Sit to Stand (QC): 6 Chair/Tbp-pe-Dxiex Xfer(QC): 6 Toilet Transfer (QC): 6 Car Transfer (QC): 6 Gait Training Does the Patient Walk?: Yes Distance: >600' Walk 10 feet (QC): 6 Walk 50 ft with 2 Turns(QC): 6 Walk 150 ft (QC): 6 Walking 10ft/uneven surface-QC: 6 Gait Assistive Device: FWW safe and functional with no deviation Stair Training Stair Training: Handrails/: 2 handrails #of Steps: 12 1 Step (curb) (QC): 6 4 Steps (QC): 6 12 Steps (QC): 6 Stairs: Pattern: Step to Balance Picking up an Object (QC): 6 (director of pupil personnel program) Assessment Patient is much improved with all gross motor skills. Patient, upon initial evaluation requires SBA to CGA with all mobility. Patient is currently at independently PLOF with all gross motor skills and has attained all functional goals. PT Nursing Home Goals Marketing Services Manager Goals PT Nursing Home Goals Time Frame: Jan 11, 2022 Roll Left & Right (QC): 6 Sit to Lying (QC): 6 Lying-Sitting on Side/Bed(QC): 6 Sit to Stand (QC): 6 Chair/Efs-bx-Qdqvd Xfer(QC): 6 Toilet Transfer (QC): 6 Car Transfer (QC): 6 Does the Patient Walk: Yes Walk 10 feet (QC): 6 Walk 50ft with 2 Turns (QC): 6 Walk 150 ft (QC): 6 Walking 10ft on Uneven Surface: 6 1 Step (curb) (QC): 6 4 Steps (QC): 6 12 Steps (QC): 9 Picking up an Object (QC): 6 Wheel 50 feet with 2 turns (QC: 9 Type: N/A Wheel 150 feet: 9 Type: N/A PT Plan Treatment/Plan Treatment Plan: Continue Plan of Care Treatment Plan: Bed Mobility, Education, Functional Activity Donaldo, Functional Strength, Gait, Safety, Therapeutic Exercise, Transfers Treatment Duration: Jan 11, 2022 Frequency: 6 times per week Estimated Hrs Per Day: .25 hour per day Patient and/or Family Agrees t: Yes Time/GCodes Time In: 901 Time Out: 924 Total Billed Treatment Time: 23 Total Billed Treatment 1 visit FA x 2 23 min BHARATHI GOMEZ PT Dec 30, 2021 10:16
--- NOTE | 2021-12-30 13:01 | Occupational Ther Daily Note ---
OT Current Status-Daily Note Subjective Pt alert, lying in bed. Pt agrees to therapy. No c/o pain. Mental Status/Objective Patient Orientation: Person, Place, Time, Situation Attachments: Colostomy/Ileostomy, Drains, IV ADL-Treatment Pt agrees to complete oral care. Supine to EOB toward L side is preferred by pt, completed by self with assist to monitor tubing. Pt ambulated to bathroom using FWW, assist to manipulate tubing. Toilet transfer SBA, pt able complete hygiene and clothing manipulation. Pt requires assist to thread feet into pant legs. Attempted to educate pt on lower body dressing equipment and pt stated that "my will do that". Pt stood at sink and complete oral care independently. After session, pt lying in bed with call light/phone in reach. All needs met in room. Therapy Code Descriptions/Definitions Functional [place] Measure: 0=Not Assessed/NA 4=Minimal Assistance 1=Total Assistance 5=Supervision or Setup 2=Maximal Assistance 6=Modified [place] 3=Moderate Assistance 7=Complete IndependenceSCALE: Activities may be completed with or without assistive devices. 5-Psodejanri-lbjcfra completes the activity by him/herself with no assistance f rom a helper. 5-Set-up or Clean-up Assistance-helper sets up or cleans up; patient completes activity. Fitzpatrick assists only prior to or following the activity. 4-Supervision or Touching Assistance-helper provides verbal cues and/or touching/steadying and/or contact guard assistance as patient completes activity. Assistance may be provided throughout the activity or intermittently. 3-Partial/Moderate Assistance-helper does LESS THAN HALF the effort. Fitzpatrick lifts, holds or supports trunk or limbs, but provides less than half the effort. 2-Substantial/Maximal Assistance-helper does MORE THAN HALF the effort. Fitzpatrick lifts or holds trunk or limbs and provides more than half the effort. 7-Uaozkfrmz-bkfded does ALL the effort. Patient does none of the effort to complete the activity. Or, the assistance of 2 or more helpers is required for the patient to complete the activity. If activity was not attempted, code reason: 7-Patient Refused. 9-Not Applicable-not attempted and the patient did not perform the activity before the current illness, exacerbation or injury. 10-Not Attempted due to Environmental Limitations-(lack of equipment, weather restraints, etc.). 88-Not Attempted due to Medical Conditions or Safety Concerns. Oral Hygiene (QC): 6 Lower Body Dressing (QC): 3 (Mod A) On/Off Footwear: 5 (Pt able to slide shoes on after set up.) Toileting Hygiene (QC): 4 Toilet Transfer (QC): 4 OT Penitentiary Goals Penitentiary Goals Time Frame: Jan 10, 2022 Eating (QC): 6 Oral Hygiene (QC): 6 Toileting Hygiene (QC): 4 Shower/Bathe Self (QC): 4 Upper Body Dressing (QC): 5 Lower Body Dressing (QC): 4 On/Off Footwear (QC): 5 Additional Goals: 1-Demonstrate ADL Tasks, 2-Verbalize Understanding, 3- ImproveStrength/Donaldo 1=Demonstrate adherence to instructed precautions during ADL tasks. 2=Patient will verbalize/demonstrate understanding of assistive devices/modifications for ADL. 3=Patient will improve strength/tolerance for activity to enable patient to perform ADL's. OT Education/Plan Problem List/Assessment Assessment: Decreased Activ Tolerance, Impaired Self-Care Skills Discharge Recommendations Plan/Recommendations: Continue POC Treatment Plan/Plan of Care Patient would benefit from OT for education, treatment and training to promote independence in ADL's, mobility, safety and/or upper extremity function for ADL's. Plan of Care: ADL Retraining, Functional Mobility, UE Funct Exercise/Act Treatment Duration: Jan 10, 2022 Frequency: 5 times per week Estimated Hrs Per Day: .25 hour per day Agreement: Yes Rehab Potential: Fair Time/GCodes Start Time: 07:45 Stop Time: 08:19 Total Time Billed (hr/min): 34 Billed Treatment Time 1 visit-ADL 2 (34 min) ARLEEN TEMPLE Dec 30, 2021 13:01
[2021-12-30 19:22] VITALS: BP 145/76
[2021-12-30] MEDS: TEMAZEPAM 15 MG (RESTORIL) CAP PO SCH (21:12)
--- NOTE | 2021-12-30 22:04 | Progress Note - Surgery ---
Subjective Date Seen by a Provider: Dec 30, 2021 Time Seen by a Provider: 12:10 Subjective/Events-last exam Patient feeling well today. Tolerating diet. Positive output from colostomy. Yellow urine output. No stool drainage from vagina. No new complaints. Denies nausea vomiting fever sweats chills shortness of breath or chest pain. Objective Exam Vital Signs Date Time Temp Pulse Resp B/P (MAP) Pulse Ox O2 Delivery O2 Flow Rate FiO2 12/30/21 20:00 Room Air 12/30/21 19:22 36.7 84 16 145/76 (99) 95 Room Air 12/30/21 12:56 96 Room Air 12/30/21 09:01 Room Air 12/30/21 08:25 35.9 87 20 124/75 (91) 97 Room Air I & O 12/30/21 07:00 Intake Total 2890 ml Output Total 3345 ml Balance -455 ml Capillary Refill : General Appearance: No Apparent Distress, WD/WN, Obese HEENT: PERRL/EOMI, Normal ENT Inspection Neck: Full Range of Motion, Normal Inspection Respiratory: Chest Non Tender, No Accessory Muscle Use, No Respiratory Distress Cardiovascular: Regular Rate, Rhythm, No JVD Gastrointestinal: non tender, soft, other (Ostomy left upper quadrant prod uctive and pink) Extremity: Normal Inspection, Non Tender, No Pedal Edema Neurologic/Psychiatric: Alert, Oriented x3, No Motor/Sensory Deficits, Normal Mood/Affect Skin: Normal Color, Warm/Dry Lymphatic: No Adenopathy Results Lab Laboratory Tests 12/30/21 05:08: Glucometer 134H 12/30/21 05:40: White Blood Count 11.7H, Red Blood Count 4.18, Hemoglobin 13.3, Hematocrit 39, Mean Corpuscular Volume 94, Mean Corpuscular Hemoglobin 32, Mean Corpuscular Hemoglobin Concent 34, Red Cell Distribution Width 17.2H, Platelet Count 273, Mean Platelet Volume 11.3 12/30/21 11:06: Glucometer 138H 12/30/21 15:32: Glucometer 156H 12/30/21 20:28: Glucometer 149H Assessment/Plan Assessment/Plan Assessment/Plan 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 Patient continues to improve. Continue antibiotics. Discussed with Dr. White this morning. Likely home tomorrow. Diet as tolerates. ASHLEY RAMSEY DO Dec 30, 2021 22:04
[2021-12-31] MEDS: ENOXAPARIN 40 MG/0.4 ML (LOVENOX) SYR SC SCH ×2 (00:34→11:44)
[2021-12-31] MEDS: PIPERACILLIN SODIUM/TAZOBACTAM 4.5 GM in NS (IVPB) 100 ML IV SCH ×2 (00:35→08:38)
[2021-12-31] MEDS: [UNRECOGNIZED DRUG - REMARK] PO SCH (05:16)
[2021-12-31] MEDS: inSUlin ASPART (NovoLOG) 1 UNIT/0.01 ML (CHARGE PER UNIT) SC SCH ×2 (05:29→10:58)
[2021-12-31 06:24] LABS: HEMATOCRIT 38 % (35-52); HEMOGLOBIN 12.7 g/dL (11.5-16.0); MEAN CORPUSCULAR HEMOGLOBIN 32 pg (25-34); MEAN CORPUSCULAR HGB CONC 34 g/dL (32-36); MEAN CORPUSCULAR VOLUME 94 fL (80-99); MEAN PLATELET VOLUME 11.5 fL (9.0-12.2); PLATELET COUNT 248 10^3/uL (130-400); WHITE BLOOD COUNT 10.2 10^3/uL (4.3-11.0)
[2021-12-31 07:32] VITALS: BP 161/74
--- NOTE | 2021-12-31 08:22 | Discharge Summary ---
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 SHE HAD A CT SCAN AND LABS WHICH SHOWED SIGMOID DIVERTICULITIS WITH SUSPECTED FISTULA TO VAGINAL CUFF AND BLADDER AND A WBC COUNT OF 29. SHE WAS ADMITTED TO THE ICU, UNDERWENT SURGERY WITH LOOP OSTOMY BY DR. RAI, AND TRANSITIONED TO 4TH FLOOR THEN SWING BED STATUS FOR CONTINUED IV ANTIBIOTICS. Discharge Summary Discharge Physical Examination Allergies: Coded Allergies: codeine (Verified Allergy, Unknown, FLU LIKE SYMPTOMS, 02/04/16) rosuvastatin (Verified Adverse Reaction, Mild, 12/23/21) myalgias Uncoded Allergies: depromedrol (Allergy, Severe, 12/23/21) collins syndrome, headache Vitals & I&Os Vital Signs Date Time Temp Pulse Resp B/P (MAP) Pulse Ox O2 Delivery O2 Flow Rate FiO2 12/31/21 07:32 35.4 71 18 161/74 (103) 96 Room Air 12/28/21 19:33 0.00 General Appearance: Alert, Oriented X3, Cooperative, No Acute Distress HEENT: Atraumatic, Mucous Memb Moist/[place] Respiratory: Clear to Auscultation, Normal Air Movement Cardiovascular: Regular Rate Abdominal: Normal Bowel Sounds, Soft, Other (ostomy left mid abdomen, drain in right abdomen, minimal output) Extremities: No Clubbing, No Cyanosis, No Edema Neuro: Normal Speech, Strength at 5/5 X4 Ext Psych/Mental Status: Mental Status NL, Mood NL Hospital Course Was the Problem List Reviewed?: Yes Sepsis Leukocytosis Sigmoid diverticulitis 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 - Consult to Dr. Rai surgery with ostomy and drain placed on 12/24/21 (anticipate drain removal today) - continue with management per surgery - diet advanced to soft on 12/29/21, tolerating well Cholelethiasis - not current issue - will address at a later time or when/if symptoms arise. Hypertension - on losartan 25mg daily Diabetes Mellitus - resume home meds on discharge Post-Procedural Hypothyroidism - oral thyroid supplement restarted. Hypokalemia and Hypophosphatemia - resolved after replacement with fluids Sleep apnea - home machine brought in by family - continue with current cpap use DVT prophylaxis - on lovenox and scd's GI prophylaxis with Protonix Pending Labs Laboratory Tests 12/31/21 05:28: Glucometer 132 12/31/21 05:38: White Blood Count 10.2, Red Blood Count 3.99, Hemoglobin 12.7, Hematocrit 38, Mean Corpuscular Volume 94, Mean Corpuscular Hemoglobin 32, Mean Corpuscular Hemoglobin Concent 34, Red Cell Distribution Width 17.2, Platelet Count 248, Mean Platelet Volume 11.5 Discharge Condition at discharge improved Instructions to patient/family Please see electronic discharge instructions given to patient. Discharge Medications Reviewed and agree with Discharge Medication list on patient's Discharge Instruction sheet BERT PADILLA MD Dec 31, 2021 08:22
[2021-12-31] MEDS ORDERED: AMOX1TAB12 PO (08:27)
[2021-12-31] MEDS ORDERED: LOSA25TA41 PO (08:27)
[2021-12-31] MEDS ORDERED: OXYC1TAB87 PO (08:31)
--- NOTE | 2021-12-31 08:35 | Discharge Inst-Simple/Standard ---
Discharge Inst-Standard Reconcile Patient Problems Problems Reviewed?: Yes Discharge Medications New, Converted or Re-Newed RX: Transmitted to Pharmacy Patient Instructions/Follow Up Plan of Care/Instructions/FU: 1 wk [facility] [address] 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 Cholelethiasis Hypertension Diabetes Mellitus Post-Procedural Hypothyroidism Hypokalemia Hypophosphatemia Sleep apnea Return to The Hospital For: any concern for worsening abdominal pain, nausea that is uncontrolled, blood in ostomy bag, from vaginal region, or other lifethreatening illness or injury Medication List: Active Scripts Active Percocet 5-325 mg Tablet (Oxycodone HCl/Acetaminophen) 1 Each Tablet 1 Tab PO Q4H MDD 6 TABS 5 Days Losartan Potassium 25 Mg Tablet 25 Mg PO DAILY Amox Tr-K Clv 875-125 mg Tab (Amoxicillin/Potassium Clav) 875 Mg-125 Mg Tablet 1 Each PO BID Percocet 5-325 mg Tablet (Oxycodone HCl/Acetaminophen) 1 Each Tablet 1 Each PO Q4H PRN Reported [Curcumin] 1 Cap PO DAILY Saline Nasal [place] (Sodium Chloride) 30 Ml [place] 1 [place] NS HS Milk Thistle 175 Mg Tablet 250 Mg PO DAILY Grape Seed Extract 50 Mg Capsule 100 Mg PO DAILY Vitamin B-12 (Cyanocobalamin (Vitamin B-12)) 5,000 Mcg Tab.rapdis 5,000 Mcg PO DAILY Vitamin D3 (Cholecalciferol (Vitamin D3)) 1,000 Unit Capsule 1,000 Unit PO DAILY Co Q-10 (Ubidecarenone) 200 Mg Capsule 200 Mg PO HS Phentermine HCl 37.5 Mg Tablet 18.75 Mg PO Q48H TAKES 1/2 (37.5MG) TABLET Miralax (Polyethylene Glycol 3350) 119 Gm Powder 17 Gm PO DAILY Folic Acid 0.8 Mg Capsule 0.8 Mg PO DAILY [natural eggshell ] 500 Mg PO DAILY Chromium Picolinate 1,000 Mcg Tablet 1,000 Mcg PO DAILY Probiotic (Lactobacillus Combination No.4) 1 Each Capsule 1 Cap PO HS [vinpocetine] 10 Mg PO DAILY [rejuvicare hair] 1 Tab PO DAILY Chetna Root 550 Mg Capsule 550 Mg PO DAILY Biotin 10,000 Mcg Capsule 10,000 Mcg PO DAILY Turmeric (Turmeric Root Extract) 500 Mg Capsule 500 Mg PO DAILY Super B Complex (Vitamin B Complex & Vit C No.4) 150 Mg Tablet 150 Mg PO DAILY Resveratrol 100 Mg Capsule 100 Mg PO HS Vitamin D3 (Cholecalciferol (Vitamin D3)) 1,000 Unit Tablet 1,000 Unit PO HS Krill Oil 500 Mg Capsule 500 Mg PO HS Zinc (Zinc Gluconate) 50 Mg Tablet 50 Mg PO HS Potassium (Potassium Gluconate) 99 Mg Tablet 99 Mg PO HS Colace (Docusate Sodium) 100 Mg Capsule 100 Mg PO HS Multi-Betic Tablet (Multivit W-Mn/FA/Lycop/Lut/Ala) 1 Each Tablet 1 Tab PO BID Aspirin 325 Mg Tablet 325 Mg PO HS Temazepam 30 Mg Capsule 30 Mg PO HS Estradiol Tablet (Estradiol) 0.5 Mg Tablet 0.5 Mg PO HS Nasacort (Triamcinolone Acetonide) 10.8 Ml [place] 1 [place] NA HS Claritin (Loratadine) 10 Mg Tablet 10 Mg PO DAILY Nabumetone 750 Mg Tablet 750 Mg PO BID Lab results: Laboratory Tests Test 12/30/21 11:06 12/30/21 15:32 12/30/21 20:28 12/31/21 05:28 Range/Units Glucometer 138 H 156 H 149 H 132 H 70-110 MG/DL Test 12/31/21 05:38 Range/Units White Blood Count 10.2 4.3-11.0 10^3/uL Red Blood Count 3.99 3.80-5.11 10^6/uL Hemoglobin 12.7 11.5-16.0 g/dL Hematocrit 38 35-52 % Mean Corpuscular Volume 94 80-99 fL Mean Corpuscular Hemoglobin 32 25-34 pg Mean Corpuscular Hemoglobin Concent 34 32-36 g/dL Red Cell Distribution Width 17.2 H 10.0-14.5 % Platelet Count 248 130-400 10^3/uL Mean Platelet Volume 11.5 9.0-12.2 fL My orders: Orders - BERT PADILLA MD Pantoprazole Tablet (Protonix Tablet) (12/31/21 09:00) Patient Visit (6/13/22 ) Functional Activities, Ea 15 (12/30/21 ) Attending Discharge Inpt/Inobs (12/31/21 08:23) BERT PADILLA MD Dec 31, 2021 08:35
[2021-12-31] MEDS: LOSARTAN 25 MG (COZAAR) TAB PO SCH (08:37)
[2021-12-31] MEDS ORDERED: PANTOPRAZOLE 40 MG (PROTONIX) TAB PO SCH (09:00)
--- NOTE | 2021-12-31 09:42 | Therapy Team Discharge Summary ---
Therapy Discharge Summary Discharge Recommendations Date of Discharge Physical Therapy Patient is much improved with all gross motor skills. Patient, upon initial evaluation requires SBA to CGA with all mobility. Patient is currently at independently PLOF with all gross motor skills and has attained all functional goals. Patient to dismiss to home with spouse on this date. Roll Left to Right (QC): 6 Sit to Lying (QC): 6 Lying to Sitting/Side of Bed(Q: 6 Sit to Stand (QC): 6 Chair/Cwi-xy-Vsadj Xfer(QC): 6 Toilet Transfer (QC): 6 Car Transfer (QC): 6 Does the Patient Walk: Yes Mode of Locomotion: Walk Anticipated Mode of Locomotion: Walk Walk 10 feet (QC): 6 Walk 50 ft with 2 Turns(QC): 6 Walk 150 ft (QC): 6 Walking 10ft on uneven surface: 6 Distance: >300' Gait Assistive Device: FWW Does the Pt Use a Wheelchair: No Wheel 50 ft with 2 turns (QC): 9 Wheel 150 ft (QC): 9 #of Steps: 12 1 Step (curb) (QC): 6 4 Steps (QC): 6 12 Steps (QC): 6 Balance Sitting Static: Normal Balance Sitting Dynamic: Normal Balance-Standing Static: Normal Picking up an Object (QC): 6 (plugger) Occupational Therapy Decreased Activ Tolerance, Impaired Self-Care Skills Eating (QC): 88 Oral Hygiene (QC): 6 Shower/Bathe Self (QC): 3 (Per clinical judgment due to muscle spasms/pain during evaluation. Pt would be able to wash UB, assistance with LB.) Upper Body Dressing (QC): 10 Lower Body Dressing (QC): 3 (Mod A) On/Off Footwear (QC): 5 (Pt able to slide shoes on after set up.) Toileting Hygiene (QC): 4 PT [facility] Goals Inspector Outside [employer] Goals PT Inspector Outside [employer] Goals Time Frame: Jan 11, 2022 Roll Left to Right (QC): 6 Sit to Lying (QC): 6 Lying-Sitting on Side/Bed(QC): 6 Sit to Stand (QC): 6 Chair/Kaf-gl-Mmnyv Xfer(QC): 6 Car Transfer (QC): 6 Does the Patient Walk: Yes Walk 10 feet (QC): 6 Walk 10ft-Uneven Surface(QC): 6 Walk 50ft with 2 Turns (QC): 6 Walk 150 ft (QC): 6 Wheel 50 feet with 2 turns (QC: 9 1 Step (curb) (QC): 6 4 Steps (QC): 6 12 Steps (QC): 9 Picking up an Object (QC): 6 OT Inspector [employer] Goals Inspector Outside [employer] Goals Time Frame: Jan 10, 2022 Eating (QC): 6 Oral Hygiene (QC): 6 Shower/Bathe Self (QC): 4 Upper Body Dressing (QC): 5 Lower Body Dressing (QC): 4 On/Off Footwear (QC): 5 Toileting Hygiene (QC): 4 Toilet/Commode Transfer (QC): 6 Additional Goals: 1-Demonstrate ADL Tasks, 2-Verbalize Understanding, 3- ImproveStrength/Donaldo 1=Demonstrate adherence to instructed precautions during ADL tasks. 2=Patient will verbalize/demonstrate understanding of assistive devices/modifications for ADL. 3=Patient will improve strength/tolerance for activity to enable patient to perform ADL's. BHARATHI GOMEZ PT Dec 31, 2021 09:42
--- NOTE | 2021-12-31 09:52 | Occupational Ther Daily Note ---
OT Current Status-Daily Note Subjective Pt alert, sitting in recliner. Pt to discharge to home today. Mental Status/Objective Patient Orientation: Person, Place, Time, Situation Attachments: IV ADL-Treatment Pt declines to complete any ADLs at this time. Pt states that she has taken herself to the bathroom without AD this AM by self. Pt has demonstrated independence with eating and oral care. Pt has slip on shoes, completes independently. Pt states that her is going to thread lower body clothing over feet then pt has demonstrated ability to hike over hips by self. Per clinical judgment, pt able to complete sponge bath after set up with assistance only for feet. After therapy, pt sitting in recliner with call light/phone in reach. All needs met in room. Therapy Code Descriptions/Definitions Functional [place] Measure: 0=Not Assessed/NA 4=Minimal Assistance 1=Total Assistance 5=Supervision or Setup 2=Maximal Assistance 6=Modified [place] 3=Moderate Assistance 7=Complete IndependenceSCALE: Activities may be completed with or without assistive devices. 3-Hxuzqxwznc-hqrjewz completes the activity by him/herself with no assistance from a helper. 5-Set-up or Clean-up Assistance-helper sets up or cleans up; patient completes activity. [place] assists only prior to or following the activity. 4-Supervision or Touching Assistance-helper provides verbal cues and/or touching/steadying and/or contact guard assistance as patient completes activity. Assistance may be provided throughout the activity or intermittently. 3-Partial/Moderate Assistance-helper does LESS THAN HALF the effort. [place] lifts, holds or supports trunk or limbs, but provides less than half the effort. 2-Substantial/Maximal Assistance-helper does MORE THAN HALF the effort. [place] lifts or holds trunk or limbs and provides more than half the effort. 1-Rfifmnbnx-aazunh does ALL the effort. Patient does none of the effort to complete the activity. Or, the assistance of 2 or more helpers is required for the patient to complete the activity. If activity was not attempted, code reason: 7-Patient Refused. 9-Not Applicable-not attempted and the patient did not perform the activity before the current illness, exacerbation or injury. 10-Not Attempted due to Environmental Limitations-(lack of equipment, weather restraints, etc.). 88-Not Attempted due to Medical Conditions or Safety Concerns. Eating (QC): 6 Oral Hygiene (QC): 6 Shower/Bathe Self (QC): 3 Upper Body Dressing (QC): 5 Lower Body Dressing (QC): 3 On/Off Footwear: 5 (slip on shoes) Toileting Hygiene (QC): 6 Toilet Transfer (QC): 6 OT Traffic Circuit Engineer Goals Senior Care Goals Time Frame: Jan 10, 2022 Eating (QC): 6 (met) Oral Hygiene (QC): 6 (met) Toileting Hygiene (QC): 4 (met) Shower/Bathe Self (QC): 4 (not met) Upper Body Dressing (QC): 5 (met) Lower Body Dressing (QC): 4 (not met) On/Off Footwear (QC): 5 (met) Additional Goals: 1-Demonstrate ADL Tasks, 2-Verbalize Understanding, 3-I mproveStrength/Donaldo 1=Demonstrate adherence to instructed precautions during ADL tasks. 2=Patient will verbalize/demonstrate understanding of assistive devices/modifications for ADL. 3=Patient will improve strength/tolerance for activity to enable patient to perform ADL's. OT Education/Plan Problem List/Assessment Assessment: Decreased Activ Tolerance, Impaired Self-Care Skills Discharge Recommendations Plan/Recommendations: Continue POC Treatment Plan/Plan of Care Patient would benefit from OT for education, treatment and training to promote independence in ADL's, mobility, safety and/or upper extremity function for ADL's. Plan of Care: ADL Retraining, Functional Mobility, UE Funct Exercise/Act Treatment Duration: Jan 10, 2022 Frequency: 5 times per week Estimated Hrs Per Day: .25 hour per day Agreement: Yes Rehab Potential: Fair Time/GCodes Start Time: 09:10 Stop Time: 09:30 Total Time Billed (hr/min): 20 Billed Treatment Time 1 visit-FA 1 (20 min) ARLEEN TEMPLE Dec 31, 2021 09:52
[2021-12-31 13:15] VITALS: BP 161/74
--- NOTE | 2022-01-01 14:27 | Therapy Team Discharge Summary ---
Therapy Discharge Summary Discharge Recommendations Date of Discharge Dec 31, 2021 at 13:15 Physical Therapy Roll Left to Right (QC): 6 Sit to Lying (QC): 6 Lying to Sitting/Side of Bed(Q: 6 Sit to Stand (QC): 6 Chair/Lhz-gc-Wwraa Xfer(QC): 6 Toilet Transfer (QC): 6 Car Transfer (QC): 6 Does the Patient Walk: Yes Mode of Locomotion: Walk Anticipated Mode of Locomotion: Walk Walk 10 feet (QC): 6 Walk 50 ft with 2 Turns(QC): 6 Walk 150 ft (QC): 6 Walking 10ft on uneven surface: 6 Distance: >300' Gait Assistive Device: FWW Does the Pt Use a Wheelchair: No Wheel 50 ft with 2 turns (QC): 9 Wheel 150 ft (QC): 9 #of Steps: 12 1 Step (curb) (QC): 6 4 Steps (QC): 6 12 Steps (QC): 6 Balance Sitting Static: Normal Balance Sitting Dynamic: Normal Balance-Standing Static: Normal Picking up an Object (QC): 6 (continuity director) Occupational Therapy Pt admitted to [facility] for antibiotics and therapy. Pt's PLOF is IND with all ADLs, no AD. Upon arrival, pt required setup for oral hygiene, Mod A for showering and don/doff footwear, and total A for toileting d/t catheter and colostomy. Pt made functional progress towards goals but did not attain goals for showering and LBD. OT tx focused on increased BUE strength, activity tolerance, and increased IND in ADLs and functional mobility. Pt discharged home with spouse, d/c from OT. Decreased Activ Tolerance, Impaired Self-Care Skills Eating (QC): 6 Oral Hygiene (QC): 6 Shower/Bathe Self (QC): 3 Upper Body Dressing (QC): 5 Lower Body Dressing (QC): 3 On/Off Footwear (QC): 5 (slip on shoes) Toileting Hygiene (QC): 6 PT Halfway Goals Parking Lot Chauffeur Goals PT Halfway Goals Time Frame: Jan 11, 2022 Roll Left to Right (QC): 6 Sit to Lying (QC): 6 Lying-Sitting on Side/Bed(QC): 6 Sit to Stand (QC): 6 Chair/Wqg-da-Smbzr Xfer(QC): 6 Car Transfer (QC): 6 Does the Patient Walk: Yes Walk 10 feet (QC): 6 Walk 10ft-Uneven Surface(QC): 6 Walk 50ft with 2 Turns (QC): 6 Walk 150 ft (QC): 6 Wheel 50 feet with 2 turns (QC: 9 1 Step (curb) (QC): 6 4 Steps (QC): 6 12 Steps (QC): 9 Picking up an Object (QC): 6 OT Parking Lot Chauffeur Goals Halfway Goals Time Frame: Jan 10, 2022 Eating (QC): 6 (met) Oral Hygiene (QC): 6 (met) Shower/Bathe Self (QC): 4 (not met) Upper Body Dressing (QC): 5 (met) Lower Body Dressing (QC): 4 (not met) On/Off Footwear (QC): 5 (met) Toileting Hygiene (QC): 4 (met) Toilet/Commode Transfer (QC): 6 Additional Goals: 1-Demonstrate ADL Tasks, 2-Verbalize Understanding, 3- ImproveStrength/Donaldo 1=Demonstrate adherence to instructed precautions during ADL tasks. 2=Patient will verbalize/demonstrate understanding of assistive devices/modifications for ADL. 3=Patient will improve strength/tolerance for activity to enable patient to perform ADL's. SORIN SAAVEDRA OT Jan 01, 2022 14:27
== END 2021-12-31 13:15 | disposition home or self-care (01) | DRG 872 ==
LOC: 4TH 11:09
PROVIDERS: ADMIT Family Medicine; ATTEND Family Medicine
DX: A41.9 Sepsis, unspecified organism (principal); N32.1 Vesicointestinal fistula; K57.32 Diverticulitis of large intestine without perforation or abscess without bleeding; D72.829 Elevated white blood cell count, unspecified; I10 Essential (primary) hypertension; E11.9 Type 2 diabetes mellitus without complications; F31.9 Bipolar disorder, unspecified; E89.0 Postprocedural hypothyroidism; E87.6 Hypokalemia; E83.39 Other disorders of phosphorus metabolism; G47.30 Sleep apnea, unspecified
CPT/HCPCS: 36415; 80053; 82947; 83735; 84100; 85027; 94664; 94760

== ENCOUNTER 2022-04-30 06:19 | Outpatient (CLI) | payer MEDICARE, OTHER ==
[~2022-04-30] VITALS: Ht 157.5 cm; Wt 93.0 kg
[~2022-04-30 06:19] MED LIST changes: +AMOX1TAB12 PO; -CATHETER FLUSH 10 ML SYR IVP PRN; +LOSA25TA41 PO; -ONDANSETRON 4 MG/2 ML (SDV) Z0FRAN IVP PRN; -PATIENT MAY USE OWN MEDS, ALL MC SCH; -POTASSIUM CL 10MEQ/50ML IVPB 50 ML IV SCH
[2022-04-30] MEDS ORDERED: CALC1CAP39 PO (12:01)
[2022-04-30] MEDS ORDERED: VINP1POW MC (12:01)
[2022-04-30] MEDS ORDERED: CETI10TA17 PO (12:01)
[2022-04-30] MEDS ORDERED: MELA10CA2 PO (12:01)
[2022-04-30] MEDS ORDERED: ESTR0.5T PO (12:01)
[2022-04-30] MEDS ORDERED: FLUT16SP22 NS (12:01)
[2022-04-30] MEDS ORDERED: [UNRECOGNIZED DRUG - CODE] PO (12:01)
== END 2022-04-30 12:02 | disposition home or self-care (01) ==
LOC: PREOP 06:19
PROVIDERS: ATTEND Surgery
DX: Z01.818 Encounter for other preprocedural examination (principal)

== ENCOUNTER → 2022-05-07 | Outpatient (CLI) | payer MEDICARE, OTHER ==
[~2022-05-07] MED LIST changes: +CALC1CAP39 PO; +CETI10TA17 PO; +FLUT16SP22 NS; +HOLD METFORMIN - RECEIVED CONTRAST 20 ML VIAL IV SCH; +IOHEXOL 350 MG/ML 100 ML (OMNIPAQUE 350) VIAL IV ONE; +MELA10CA2 PO; +VINP1POW MC; +[UNRECOGNIZED DRUG - CODE] PO
--- NOTE | 2022-05-07 19:36 | Diagnostic Imaging Report ---
INDICATION: Vesicocolonic fistula. PROCEDURE: Precontrast axial imaging through the pelvis was performed. Next, approximately 300 mL of a mixture of water and Omnipaque contrast was injected through a Mejia catheter into the urinary bladder. Axial imaging was then performed after adequate bladder distention. Next, the bladder was drained and post void axial imaging through the pelvis was performed. Precontrast imaging does show a left lower quadrant ostomy. There are some diverticula within the sigmoid colon. There is some mild nonspecific inflammatory stranding in the fat adjacent to the rectosigmoid colon. Postcontrast imaging demonstrates contrast within the urinary bladder. No abnormal communication of contrast with surrounding structures, specifically the colon, is identified to suggest fistula. The post drainage images demonstrate a completely decompressed bladder. No abnormal contrast accumulation is identified. There is no free fluid in the pelvis. IMPRESSION: Unremarkable CT cystogram, as described. No definite colovesical fistula is detected. Dictated by: Dictated on workstation # [id number]
== END ==
LOC: RAD 14:15
PROVIDERS: ATTEND Urology
DX: N32.1 Vesicointestinal fistula (principal)
CPT/HCPCS: 72192

== ENCOUNTER 2022-05-13 08:02 | Day surgery (SDC) | payer MEDICARE, OTHER ==
[~2022-05-13] VITALS: Ht 157 cm; Wt 93.0 kg
[~2022-05-13 08:02] MED LIST changes: -HOLD METFORMIN - RECEIVED CONTRAST 20 ML VIAL IV SCH; -IOHEXOL 350 MG/ML 100 ML (OMNIPAQUE 350) VIAL IV ONE
[2022-05-13] MEDS ORDERED: LACTATED RINGERS 1,000 ML IV STA (08:04)
[2022-05-13 08:20] VITALS: BP 165/72
[2022-05-13] MEDS ORDERED: PROPOFOL INJECTION 50 ML IV ONE ×2 (10:12→10:47)
[2022-05-13 11:10] VITALS: BP 122/60
--- NOTE | 2022-05-13 11:11 | Progress Note-Post Operative ---
Post-Operative Progess Note Surgeon (s)/Coordinator Of Evaluation (s) Surgeon ASHLEY RAMSEY DO Coordinator Of Evaluation: NA Pre-Operative Diagnosis colovaginal colovesicular fistula Post-Operative Diagnosis non use colitis, diverticulosis, ascending colon polyp Procedure & Operative Findings Date of Procedure 05/13/22 Procedure Performed/Findings Colonoscopy with polypectomy with hot biopsy x1 Anesthesia Type per club director Estimated Blood Loss Estimated blood loss (mL): None Specimens/Packing Specimens Removed ascending polypectomy x 1 ASHLEY RAMSEY DO May 13, 2022 11:11
--- NOTE | 2022-05-13 11:12 | Progress Note-Pre Operative ---
Pre-Operative Progress Note Date of Available H&P: May 13, 2022 Date H&P Reviewed: May 13, 2022 Time H&P Reviewed: 10:00 History & Physical: H&P Reviewed, Patient Examed Pre-Operative Diagnosis: colovaginal colovesicular fistula ASHLEY RAMSEY DO May 13, 2022 11:12
--- NOTE | 2022-05-13 11:14 | Discharge Inst-Simple/Standard ---
Discharge Inst-Standard Patient Instructions/Follow Up Plan of Care/Instructions/FU: F/u with Dr. Rai in 2 weeks Activity as Tolerated: Yes Discharge Diet: Regular Diet (high fiber diet) ASHLEY RAI DO May 13, 2022 11:14
[2022-05-13 11:15] VITALS: BP 125/58
[2022-05-13 11:40] VITALS: BP_SYST 125; BP_SYST 136; BP_DIAS 58; BP_DIAS 66
--- NOTE | 2022-05-13 14:54 | Anesthesia-General Post-Op ---
MAC Patient Condition Mental Status/LOC: Same as Preop Cardiovascular: Satisfactory Nausea/Vomiting: Absent Respiratory: Satisfactory Pain: Controlled Complications: Absent Post Op Complications Complications None Follow Up Care/Instructions Patient Instructions None needed. Anesthesiology Discharge Order Discharge Order Patient is doing well, no complaints, stable vital signs, no apparent adverse anesthesia problems. No complications reported per nursing. VIOLA MARX CRNA May 13, 2022 14:54
--- NOTE | 2022-05-13 17:16 | OPERATIVE REPORT ---
DATE OF SERVICE: 05/13/2022 PREOPERATIVE DIAGNOSES: Colovaginal and colovesicular fistula. POSTOPERATIVE DIAGNOSES: Nonuse colitis, diverticulosis, ascending colon polyp, and partially incomplete colonoscopy. PROCEDURES PERFORMED: Colonoscopy with hot biopsy polypectomy x1 and partially incomplete colonoscopy. SURGEON: Ashley Rai DO. ANESTHESIA: Per MANAGER LINUX. ESTIMATED BLOOD LOSS: None. COMPLICATIONS: None. SPECIMENS: Ascending colon polyp. DESCRIPTION OF PROCEDURE: The patient was taken to the endoscopy suite and placed in the supine position. Timeout was performed. Scope was inserted through the loop colostomy and was advanced all the way to the cecum without difficulty. Prep was adequate. Scope was then slowly retracted back. No polyps, masses or ulcerations in the cecum. In the ascending colon, a small polyp was present, which hot biopsy polypectomy was performed. Scope was then continuously retracted back in the transverse colon, where no polyps, masses or ulcerations through the transverse colon out the colostomy. The patient was placed in a frogleg position. A digital rectal exam was performed. No palpable polyps, masses or ulcerations. Scope was inserted in the rectum and started to be advanced. I could not get through the sigmoid colon. Therefore, we switched to a gastroscope, which still had difficulty due to the redundancy. I did note diverticulosis of the sigmoid colon. The patient was placed back in the supine position and the scope was put down the other end of the colostomy, which was continued to be advanced. Due to positioning and redundancy of the colon, the scope could no longer be advanced. No polyps, masses or ulcerations visualized within the portion of the descending colon visualized and the transverse colon portion that was visualized. Scope was then slowly retracted back until completely removed. The patient tolerated the procedure well without any complications. She was taken to the recovery room in stable condition. RECOMMENDATIONS: I would consider getting a CT scan with rectal contrast to evaluate the left colon. She was continuing further work up with urology as well. The patient will need repeat colonoscopy on as needed basis, also depending upon radiological imaging. Job ID: [id number] DocumentID: [id number] Dictated Date: 05/13/2022 11:17:06 Rabies Inspector Date: 05/13/2022 17:16:07 Dictated By: ASHLEY RAI DO
== END 2022-05-13 12:55 | disposition home or self-care (01) ==
LOC: ENDO 08:02
PROVIDERS: ATTEND Surgery
DX: D12.2 Benign neoplasm of ascending colon (principal); K57.30 Diverticulosis of large intestine without perforation or abscess without bleeding; K52.9 Noninfective gastroenteritis and colitis, unspecified
CPT/HCPCS: 88305

== ENCOUNTER → 2022-06-02 | Outpatient (CLI) | payer MEDICARE, OTHER ==
--- NOTE | 2022-06-02 14:26 | Diagnostic Imaging Report ---
PROCEDURE: CT abdomen and pelvis without contrast. TECHNIQUE: Multiple contiguous axial images were obtained through the abdomen and pelvis without the use of intravenous contrast. Auto Exposure Controls were utilized during the CT exam to meet ALARA standards for radiation dose reduction. INDICATION: Questionable colovesical fistula. FINDINGS: 30 mL of Gastrografin contrast was injected into the rectum and axial imaging through the abdomen and pelvis was performed. The lung bases are clear. The liver is unremarkable. There are stones within the gallbladder. No biliary ductal dilatation is seen. The pancreas and spleen are unremarkable. No adrenal mass is detected. The kidneys are unremarkable apart from a punctate nonobstructing calculus in the lower pole of the left kidney. There is no hydronephrosis. The aorta is nonaneurysmal. There is an ostomy in the left lower quadrant. There is opacification of the rectum and sigmoid colon as well as portions of the descending colon from rectal contrast. There are some inflammatory changes noted in the midline pelvis just cephalad to the sigmoid colon. There are several small gas bubbles in this area of inflammation. There is also a linear tract which appears to extend towards the vagina. The vagina does contain a small amount of high density, consistent with contrast. No definite contrast within the bladder is identified. No fluid collection is seen. No other significant abnormalities are detected. IMPRESSION: 1. Cholelithiasis. 2. Features concerning for colovaginal fistula. There are some inflammatory changes in the midline pelvis just cephalad to a sigmoid loop with small gas bubbles present but no drainable fluid collection is identified. Dictated by: Dictated on workstation # [id number]
== END ==
LOC: RAD 11:29
PROVIDERS: ATTEND Surgery
DX: K80.20 Calculus of gallbladder without cholecystitis without obstruction (principal)
CPT/HCPCS: 74176

== ENCOUNTER → 2022-07-29 | Outpatient (CLI) | payer MEDICARE, OTHER ==
[2022-07-29 14:53] LABS: BASOPHILS % (AUTO) 0 % (0-10); EOSINOPHILS # (AUTO) 0.2 10^3/uL (0.0-0.3); EOSINOPHILS % (AUTO) 2 % (0-10); HEMATOCRIT 41 % (35-52); HEMOGLOBIN 13.6 g/dL (11.5-16.0); LYMPHOCYTES # (AUTO) 2.1 X 10^3 (1.0-4.0); LYMPHOCYTES % (AUTO) 19 % (12-44); MEAN CORPUSCULAR HEMOGLOBIN 29 pg (25-34); MEAN CORPUSCULAR HGB CONC 33 g/dL (32-36); MEAN CORPUSCULAR VOLUME 88 fL (80-99); MEAN PLATELET VOLUME 11.4 fL (9.0-12.2); MONOCYTES # (AUTO) 0.8 X 10^3 (0.0-1.0); MONOCYTES % (AUTO) 8 % (0-12); NEUTROPHILS # (AUTO) 7.6 X 10^3 (1.8-7.8); NEUTROPHILS % (AUTO) 70 % (42-75); PLATELET COUNT 177 10^3/uL (130-400); WHITE BLOOD COUNT 10.8 10^3/uL (4.3-11.0)
[2022-07-29 15:06] LABS: CALCIUM 10.3 MG/DL (8.5-10.1); CREATININE SERUM 0.69 MG/DL (0.60-1.30); POTASSIUM 4.1 MMOL/L (3.6-5.0)
== END ==
LOC: WOUNDCARE 13:13
PROVIDERS: ATTEND Family Medicine
DX: L98.492 Non-pressure chronic ulcer of skin of other sites with fat layer exposed (principal); L24.B1 Irritant contact dermatitis related to digestive stoma or fistula; E66.01 Morbid (severe) obesity due to excess calories; K94.00 Colostomy complication, unspecified; R63.4 Abnormal weight loss; Z68.35 Body mass index [BMI] 35.0-35.9, adult
CPT/HCPCS: 11042; 36415; 80048; 83036; 84134; 85025

== ENCOUNTER → 2022-08-05 | Outpatient (CLI) | payer MEDICARE, OTHER | LOC: WOUNDCARE 13:22 | PROVIDERS: ATTEND Family Medicine | DX: L98.492 Non-pressure chronic ulcer of skin of other sites with fat layer exposed (principal); I96 Gangrene, not elsewhere classified; L24.B1 Irritant contact dermatitis related to digestive stoma or fistula; K94.00 Colostomy complication, unspecified; R63.4 Abnormal weight loss; E66.01 Morbid (severe) obesity due to excess calories; Z68.35 Body mass index [BMI] 35.0-35.9, adult | CPT/HCPCS: 11042; 87070; 87205; G0463 ==

== ENCOUNTER → 2022-08-12 | Outpatient (CLI) | payer MEDICARE, OTHER | LOC: WOUNDCARE 13:17 | PROVIDERS: ATTEND Family Medicine | DX: L98.492 Non-pressure chronic ulcer of skin of other sites with fat layer exposed (principal); I96 Gangrene, not elsewhere classified; L24.B1 Irritant contact dermatitis related to digestive stoma or fistula; K94.00 Colostomy complication, unspecified; R63.4 Abnormal weight loss; E66.01 Morbid (severe) obesity due to excess calories; Z68.35 Body mass index [BMI] 35.0-35.9, adult | CPT/HCPCS: 11042; G0463 ==

== ENCOUNTER → 2022-08-19 | Outpatient (CLI) | payer MEDICARE, OTHER | LOC: WOUNDCARE 13:27 | PROVIDERS: ATTEND Family Medicine | DX: L98.492 Non-pressure chronic ulcer of skin of other sites with fat layer exposed (principal); L24.B1 Irritant contact dermatitis related to digestive stoma or fistula; E66.01 Morbid (severe) obesity due to excess calories; K94.00 Colostomy complication, unspecified; R63.4 Abnormal weight loss; I96 Gangrene, not elsewhere classified | CPT/HCPCS: 11042; G0463 ==

== ENCOUNTER → 2022-08-26 | Outpatient (CLI) | payer MEDICARE, OTHER | LOC: WOUNDCARE 13:28 | PROVIDERS: ATTEND Family Medicine | DX: L98.492 Non-pressure chronic ulcer of skin of other sites with fat layer exposed (principal); L24.B1 Irritant contact dermatitis related to digestive stoma or fistula; K94.00 Colostomy complication, unspecified; E66.01 Morbid (severe) obesity due to excess calories; R63.4 Abnormal weight loss; Z68.35 Body mass index [BMI] 35.0-35.9, adult | CPT/HCPCS: 11042; G0463 ==

== ENCOUNTER → 2022-09-02 | Outpatient (CLI) | payer MEDICARE, OTHER | LOC: WOUNDCARE 13:10 | PROVIDERS: ATTEND Family Medicine | DX: L98.492 Non-pressure chronic ulcer of skin of other sites with fat layer exposed (principal); L24.B1 Irritant contact dermatitis related to digestive stoma or fistula; E66.01 Morbid (severe) obesity due to excess calories; K94.00 Colostomy complication, unspecified; R63.4 Abnormal weight loss; Z68.35 Body mass index [BMI] 35.0-35.9, adult | CPT/HCPCS: 99212 ==

== ENCOUNTER → 2022-09-09 | Outpatient (CLI) | payer MEDICARE, OTHER ==
--- NOTE | 2022-09-09 13:20 | Diagnostic Imaging Report ---
INDICATION: Postmenopausal state, screening for osteoporosis COMPARISON: None available, baseline exam FINDINGS: AP Spine L1-L4: [BMD (g/cm2): 2.277] [T-Score: 9.0] [Z-Score: 10.0] [BMD Previous: na] [BMD % Change: na] LT Hip Neck: [BMD (g/cm2): 1.448] [T-Score: 2.9] [Z-Score: 4.5] LT Hip Total: [BMD (g/cm2):1.497] [T-Score:3.9] [Z-Score: 5.2] [BMD Previous: na] [BMD % Change: na] RT Hip Neck: [BMD (g/cm2):1.461] [T-Score:3.0] [Z-Score:4.5] RT Hip Total: [BMD (g/cm2):1.542] [T-score:4.2] [Z-Score:5.5] [BMD Previous:na] [BMD % Change:na] *Indicates significant change from prior examination based on 95% confidence level. World Health Organization criteria for BMD interpretation classify patients as Normal (T-score at or above -1.0), Osteopenic (T-score between -1.0 and -2.5) or Osteoporotic (T-score at or below -2.5). LIMITATIONS AND MODIFICATION: None. IMPRESSION: 1. Normal bone mineral density. 2. Baseline examination. 3. See below National Osteoporosis Foundation guidelines on when to potentially initiate pharmacologic therapy. Based on the National Osteoporosis Foundation Guidelines, pharmacologic treatment should be initiated in any of the following, unless clinical conditions suggest otherwise: * Any patient with prior fragility fracture of the hip or vertebrae. A spine fracture indicates 5X risk for subsequent spine fracture and 2X risk for subsequent hip fracture. * Osteoporosis (T-score <-2.5). * Postmenopausal women and men age 50 and older with low bone mass/osteopenia (T-score between -1.0 and -2.5) by DXA and 10-year major osteoporotic fracture greater than 20% or a 10-year probability of hip fracture greater than 3%. These fracture risks are supplied above in the FRAX score, if applicable. * Clinician judgement and/or patient preferences may indicate treatment for people with 10-year fracture probabilities above or below these levels. Dictated by: Dictated on workstation # [id number]
--- NOTE | 2022-09-11 12:49 | Diagnostic Imaging Report ---
INDICATION: Routine screening. Comparison is made with prior mammogram from 01/06/2019 and 10/08/2017. 2-D and 3-D bilateral screening mammography was performed with CAD. CAD is utilized. The current study was also evaluated with a Computer Aided Detection (CAD) system. Both breasts are heterogeneously dense, limiting the sensitivity of mammography. There are benign calcifications scattered throughout both breasts. No mass or malignant-appearing microcalcifications are seen. Axillae are unremarkable. IMPRESSION: BI-RADS Category 2 No mammographic features suspicious for malignancy are identified. ACR BI-RADS Category 2: Benign findings. Result letter will be mailed to the patient. Note: At least 10% of breast cancer is not imaged by mammography. Dictated by: Dictated on workstation # [id number]
== END ==
LOC: RAD 09:31
PROVIDERS: ATTEND Family Medicine
DX: Z13.820 Encounter for screening for osteoporosis (principal); Z78.0 Asymptomatic menopausal state
CPT/HCPCS: 77063; 77067; 77080

== ENCOUNTER → 2023-04-21 | Outpatient (CLI) | payer MEDICARE, OTHER ==
[~2023-04-21] MED LIST changes: -CYAN50003 PO; +CYAN50007 PO; +HOLD METFORMIN - RECEIVED CONTRAST 20 ML VIAL IV SCH; +IOHEXOL 350 MG/ML 100 ML (OMNIPAQUE 350) VIAL IV ONE; +NS 100 ML (IVPB) BAG IV ONE
--- NOTE | 2023-04-21 13:44 | Diagnostic Imaging Report ---
EXAMINATION: CT abdomen and pelvis with and without intravenous contrast. TECHNIQUE: Precontrast acquisitions were acquired through the abdomen and pelvis. Multiple contiguous axial images were obtained through the abdomen and pelvis after the administration of intravenous contrast. All CT scans use one or more of the following dose optimizing techniques: automated exposure control, MA and/or KvP adjustment based on patient size and exam type or iterative reconstruction. HISTORY: History of abdominal pain with intestinal and vesical fistula. COMPARISON: 06/02/2022. FINDINGS: Lung bases: Bibasilar dependent atelectasis. Solid organs: The liver is normal without focal lesion. Multiple layering hyperdense stones within the gallbladder. There is no biliary ductal dilation. Pancreas is normal. Spleen is normal. Adrenal glands are normal. There is a nonobstructing 0.3 cm left renal calculus. No hydronephrosis. Bowel: Surgical changes from left lower quadrant loop colostomy. There is mild wall thickening of the left hemicolon which may be secondary to decompression. There may be few scattered colonic diverticula present. There is no bowel obstruction. A few loops of small bowel enter into a right paracentral hernia. There is a prominent parastomal hernia seen within the left lower quadrant. There are no secondary signs of acute appendicitis. Peritoneum: There is no intraperitoneal free fluid or free air. There continues to be stranding or soft tissue within the pelvis extending from the sigmoid colon to the posterior vaginal wall. There are multiple prominent mesorectal lymph nodes present. No other pathologically enlarged lymphadenopathy is seen. Vasculature: Calcification of the aorta without aneurysm. Musculoskeletal: Degenerative changes of the spine without suspicious osseous lesion or compression fracture. Pelvis: The uterus is surgically absent. No adnexal mass. The urinary bladder is normal. IMPRESSION: 1. Stable findings suggestive of a fistulous tract extending from the sigmoid colon to the posterior wall of the vagina. There continues to be prominent soft tissue stranding within the fat adjacent to this area. 2. Multiple prominent mesorectal lymph nodes which are increased from 06/02/2022. These may be reactive from chronic inflammation or infection but rectal neoplasm can be a source of prominent mesorectal lymphadenopathy. 3. Left lower quadrant loop colostomy with prominent parastomal hernia. Additional right paracentral hernia containing loops of small bowel without obstruction. 4. Cholelithiasis. Dictated by: Dictated on workstation # [id number]
== END ==
LOC: RAD 11:01
PROVIDERS: ATTEND Family Medicine
DX: K80.20 Calculus of gallbladder without cholecystitis without obstruction (principal); N32.2 Vesical fistula, not elsewhere classified; S31.109S Unspecified open wound of abdominal wall, unspecified quadrant without penetration into peritoneal cavity, sequela; R59.1 Generalized enlarged lymph nodes; Z90.710 Acquired absence of both cervix and uterus
CPT/HCPCS: 74178

== ENCOUNTER → 2023-06-09 | Outpatient (CLI) | payer MEDICARE, OTHER ==
[~2023-06-09] MED LIST changes: -ESTR0.5T PO; +ESTR0.5T2 PO; -HOLD METFORMIN - RECEIVED CONTRAST 20 ML VIAL IV SCH; -IOHEXOL 350 MG/ML 100 ML (OMNIPAQUE 350) VIAL IV ONE; -NS 100 ML (IVPB) BAG IV ONE
== END ==
LOC: WOUNDCARE 09:58
PROVIDERS: ATTEND Family Medicine
DX: T81.31XA Disruption of external operation (surgical) wound, not elsewhere classified, initial encounter (principal); I96 Gangrene, not elsewhere classified; T81.83XA Persistent postprocedural fistula, initial encounter; L24.B1 Irritant contact dermatitis related to digestive stoma or fistula; K94.09 Other complications of colostomy; E66.01 Morbid (severe) obesity due to excess calories; Z68.31 Body mass index [BMI] 31.0-31.9, adult
CPT/HCPCS: 11042; G0463

== ENCOUNTER → 2023-06-23 | Outpatient (CLI) | payer MEDICARE, OTHER | LOC: WOUNDCARE 12:30 | PROVIDERS: ATTEND Family Medicine | DX: T81.31XA Disruption of external operation (surgical) wound, not elsewhere classified, initial encounter (principal); T81.83XA Persistent postprocedural fistula, initial encounter; K94.09 Other complications of colostomy; L24.B1 Irritant contact dermatitis related to digestive stoma or fistula; E66.01 Morbid (severe) obesity due to excess calories; R63.4 Abnormal weight loss; Z68.31 Body mass index [BMI] 31.0-31.9, adult | CPT/HCPCS: 11042; G0463 ==